=== PATIENT | male | born 1935 | race Caucasian/White ===

== ENCOUNTER 2016-08-09 12:43 | Inpatient (IN) | payer OTHER, MEDICARE ==
[~2016-08-09] VITALS: Ht 182.9 cm; Wt 70.5 kg
[~2016-08-09 12:43] MED LIST: AMIO200T4 PO; CLR10 PO; METO25TA3 PO; TPRSR/25 PO; WARF-280 PO
--- NOTE | 2016-08-09 14:16 | EMERGENCY ROOM VISIT NOTE ---
History Report prepared by Joby: Rk Delarosa Under the Supervision of: Dr. Lance Murillo D.O. First contact with patient: 13:54 Chief Complaint: LETHARGIC Stated Complaint: altered Nursing Triage Summary: Dementia. Pt. arrived via ALS ambulance. Home health services had their first visit at [facility] today. Upon arrival (per EMS) home health found pt. sleeping on the floor in the hallway. Pt. also has dementia. Difficult to obtain a history or assessment of pt. Pt. is sleeping comfortably and does not appear to be in any pain. History of Present Illness The patient is an 80 year old male who presents to the Emergency Room via emergency medical services due to worsening confusion and weakness that began two days prior to arrival. The patient has a home care nurse who visits the patient's home for one hour every Saturday and . When she arrived to the home today at 0900 she found the patient sitting on the floor against a wall. The patient's , who also suffers from dementia, notes that she got the patient out of bed and ready for the day this morning but he was very fatigued. The home care nurse got the patient off of the floor and got him breakfast. The patient was falling asleep while sitting at the table. The patient and his live alone, and are called their son every day to remind them to take their medications. The home nurse has no way of knowing what medications the patient takes or when he is supposed to take them. The nurse does think that some changes need to be made to the home to make it safe for the patient and his . Their son Reny is their power of surveillance inspector. 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 A total of 10 systems reviewed and were otherwise negative. Past Medical & Surgical Medical Problems: (1) ACQRD ABSENCE OF KIDNEY (2) Asthma (3) CATARACT NOS (4) Dementia (5) Dementia (6) HX-PROSTATIC MALIGNANCY (7) Hypertension (8) kidney cancer (9) UMBILICAL HERNIA (10) unilateral nephrectomy Surgical Problems: (1) History of cholecystectomy (2) History of nephrectomy Family History FH: cancer FHx: cancer Kidney disease or stones Social History Smoking Status: Unknown if Ever Smoked Alcohol Use: occasionally Drug Use: none Marital Status: Housing Status: lives with significant other Occupation Status: retired Current/Historical Medications Scheduled Amiodarone Hcl (Cordarone), 200 MG PO QPM Metoprolol Succinate (Metoprolol Succinate ER), 25 MG PO DAILY Olanzapine (Olanzapine), 5 MG PO QPM Allergies Coded Allergies: Shellfish (Verified Allergy, Intermediate, GI DISTRESS, RASH, 08/09/16) Physical Exam Vital Signs Date Time Temp Pulse Resp B/P Pulse Ox O2 Delivery O2 Flow Rate FiO2 08/09/16 18:48 58 18 145/75 95 Room Air 08/09/16 17:18 57 18 118/65 96 Room Air 08/09/16 16:28 52 18 129/71 95 Room Air 08/09/16 16:28 96 Room Air 08/09/16 15:38 59 08/09/16 13:56 57 08/09/16 13:04 97 Room Air 08/09/16 12:47 36.1 64 16 149/69 97 Room Air Physical Exam GENERAL: Patient is sleeping in bed. Easily aroused with verbal stimuli. HEENT: No acute trauma, normocephalic atraumatic, mucous membranes moist, no nasal congestion, no scleral icterus. NECK: No stridor, no adenopathy, no meningismus, trachea is midline. LUNGS: No dyspnea. Clear to auscultation and equal bilaterally. No wheeze, no rhonchi. HEART: Regular rate and rhythm. No murmurs, rubs, gallops appreciated. ABDOMEN: Soft, nontender, bowel sounds positive, no masses appreciated, no peritonitis. BACK: No midline tenderness, no CVA tenderness EXTREMITIES: Moves all extremities, no cyanosis, no edema. NEUROLOGIC: No pronator drift. Unable to follow complex (2-step) commands due to dementia, Per family this is at baseline. SKIN: No rash, no jaundice, no diaphoresis. Medical Decision & Procedures ER Provider Diagnostic Interpretation: Radiology results as stated below per my review and radiologist interpretation: CHEST ONE VIEW PORTABLE CLINICAL HISTORY: weakness dyspnea COMPARISON STUDY: 05/20/2016 FINDINGS: The bones soft tissues and hemidiaphragms are normal. The cardiomediastinal silhouette is normal. The lungs are clear. The pulmonary vasculature is normal. IMPRESSION: Negative chest. Electronically signed by: Arnaud Rosa M.D. 08/09/2016 2:49 PM Dictated Date/Time: 08/09/2016 2:49 PM Laboratory Results 08/09/16 13:00 Red Blood Count 4.08, Mean Corpuscular Volume 90.7, Mean Corpuscular Hemoglobin 30.6, Mean Corpuscular Hemoglobin Concent 33.8, Mean Platelet Volume 9.5, Neutrophils (%) (Auto) 59.4, Lymphocytes (%) (Auto) 26.8, Monocytes (%) (Auto) 10.1, Eosinophils (%) (Auto) 2.8, Basophils (%) (Auto) 0.7, Neutrophils # (Auto ) 3.57, Lymphocytes # (Auto) 1.61, Monocytes # (Auto) 0.61, Eosinophils # (Auto ) 0.17, Basophils # (Auto) 0.04 08/09/16 13:00 Test 08/09/16 13:00 08/09/16 14:20 08/09/16 14:28 08/09/16 16:30 White Blood Count 6.01 K/uL (4.8-10.8) Red Blood Count 4.08 M/uL (4.7-6.1) Hemoglobin 12.5 g/dL (14.0-18.0) Hematocrit 37.0 % (42-52) Mean Corpuscular Volume 90.7 fL (80-100) Mean Corpuscular Hemoglobin 30.6 pg (25-34) Mean Corpuscular Hemoglobin Concent 33.8 g/dl (32-36) Platelet Count 234 K/uL (130-400) Mean Platelet Volume 9.5 fL (7.4-10.4) Neutrophils (%) (Auto) 59.4 % Lymphocytes (%) (Auto) 26.8 % Monocytes (%) (Auto) 10.1 % Eosinophils (%) (Auto) 2.8 % Basophils (%) (Auto) 0.7 % Neutrophils # (Auto) 3.57 K/uL (1.4-6.5) Lymphocytes # (Auto) 1.61 K/uL (1.2-3.4) Monocytes # (Auto) 0.61 K/uL (0.11-0.59) Eosinophils # (Auto) 0.17 K/uL (0-0.5) Basophils # (Auto) 0.04 K/uL (0-0.2) RDW Standard Deviation 45.0 fL (36.4-46.3) RDW Coefficient of Variation 13.6 % (11.5-14.5) Immature Granulocyte % (Auto) 0.2 % Immature Granulocyte # (Auto) 0.01 K/uL (0.00-0.02) Anion Gap 8.0 mmol/L (3-11) Est Creatinine Clear Calc Drug Dose 45.1 ml/min Estimated GFR () 54.6 Estimated GFR (Non- 47.1 BUN/Creatinine Ratio 15.1 (10-20) Calcium Level 8.8 mg/dl (8.5-10.1) Total Bilirubin 0.5 mg/dl (0.2-1) Direct Bilirubin 0.2 mg/dl (0-0.2) Aspartate Amino Transf (AST/SGOT) 20 U/L (15-37) Alanine Aminotransferase (ALT/SGPT) 20 U/L (12-78) Alkaline Phosphatase 57 U/L (45-117) Total Protein 6.9 gm/dl (6.4-8.2) Albumin 3.3 gm/dl (3.4-5.0) Procalcitonin < 0.05 ng/mL (0-0.5) Thyroid Stimulating Hormone (TSH) 3.820 uIu/ml (0.300-4.500) Bedside Glucose 79 mg/dl (70-99) Venous Blood pH 7.40 (7.36-7.41) Venous Blood Partial Pressure CO2 51 mmHg (38.0-50.0) Venous Blood Partial Pressure O2 32 mmHg Venous Blood HCO3 31 mmol/L Venous Blood Oxygen Saturation < 60.0 % Venous Blood Base Excess 5.1 mmol/L Influenza Type A (RT-PCR) Neg for Influ A (NEG) Influenza Type B (RT-PCR) Neg for Influ B (NEG) Test 08/09/16 18:50 Urine Color DK YELLOW Urine Appearance CLEAR (CLEAR) Urine pH 6.0 (4.5-7.5) Urine Specific [place] 1.019 (1.000-1.030) Urine Protein NEG (NEG) Urine Glucose (UA) NEG (NEG) Urine Ketones TRACE (NEG) Urine Occult Blood NEG (NEG) Urine Nitrite NEG (NEG) Urine Bilirubin NEG (NEG) Urine Urobilinogen NEG (NEG) Urine Leukocyte Esterase NEG (NEG) Urine WBC (Auto) 0 /hpf (0-5) Urine RBC (Auto) 0-4 /hpf (0-4) Urine Hyaline Casts (Auto) 0 /lpf (0-5) Urine Epithelial Cells (Auto) 0-5 /lpf (0-5) Urine Bacteria (Auto) NEG (NEG) Laboratory results as reviewed by me. ECG Indication: weakness Rate (beats per minute): 64 Rhythm: normal sinus Findings: prolonged QT Comparison ECG Date: 05/08/2017 Change: no significant change ED Course 1357: The patient was evaluated in room C9. A complete history and physical exam was performed. 1618: I checked on the patient at this time, he was resting in bed. 1820: Bedside ultrasound revealed 12 x 12 x 8 bladder volume. Which revealed an intra bladder mass. 1923: I discussed the case with Dr. Garnett - [facility] [place] he will evaluate the patient for further treatment. Medical Decision Differential diagnosis: Etiologies such as metabolic, infection, hypo/hyperglycemia, electrolyte abnormalities, cardiac sources, intracerebral event, toxicologic, neurologic, as well as others were entertained. Patient is an 80-year-old male with significant past medical history for end- stage dementia who has living at home with his who also is afflicted with dementia. He was brought in today at the insistence of the home health nurses this was her first visit, the patient insisted on sleeping in the hallway, the home health nurse was concerned for their safety. There is also report that he was a little more difficult to arouse initially. Upon further questioning with family and caregivers this can be normal for him. Today a general medical examination did not reveal any acute infectious etiology, no evidence of acute stroke. I discussed the case with the patient's primary care provider Dr. Hunter, he has worked extensively with regards to placement of both the patient and his . The home health nurse also reports that the patient is frequently leaving the home and wandering. The family is attempting to secure 24-hour home health nursing assistance, this will take 24-48 hours to secure 24- hour assistance, in the meantime is felt that he is not safe to be at home without 24-hour assistance. He is being evaluated by the hospitalist for admission while 24-hour care and possible placement is secured. Consults Time Called: 1914 Consulting Physician: Dr. Tamir HOYT Hospitalist Returned Call: 1923 I discussed the case with Dr. Tamir HOYT he will evaluate the patient for further treatment. Impression Primary Impression: Mild anemia Additional Impression: Dementia Scribe Attestation The scribe's documentation has been prepared under my direction and personally reviewed by me in its entirety. I confirm that the note above accurately reflects all work, treatment, procedures, and medical decision making performed by me. Departure Information Dispostion Being Evaluated By Hospitalist Referrals Vinayak Turner M.D. (PCP) Patient Instructions My [facility] Problem Qualifiers
[2016-08-09 14:31] LABS: BUN/CREATININE RATIO 15.1 (10-20); CALCIUM 8.8 mg/dl (8.5-10.1); CREATININE 1.4 mg/dl (0.60-1.40)
[2016-08-09] MEDS ORDERED: ZYP5 PO (14:34)
[2016-08-09] MEDS ORDERED: SYMIN INH (14:34)
[2016-08-09] MEDS ORDERED: CLR10 PO (14:35)
[2016-08-09 14:44] LABS: THYROID STIMULATING HORMONE 3.82 uIu/ml (0.300-4.500)
[2016-08-09 14:48] LABS: VEN BLOOD GAS BASE EXCESS 5.1 mmol/L; VENOUS BLOOD GAS PCO2 51 mmHg (38.0-50.0); VENOUS BLOOD GAS PO2 32 mmHg
--- NOTE | 2016-08-09 14:50 | DIAGNOSTIC IMAGING REPORT ---
CHEST ONE VIEW PORTABLE CLINICAL HISTORY: weakness dyspnea COMPARISON STUDY: 05/20/2016 FINDINGS: The bones soft tissues and hemidiaphragms are normal. The cardiomediastinal silhouette is normal. The lungs are clear. The pulmonary vasculature is normal. IMPRESSION: Negative chest. Electronically signed by: Arnaud Rosa M.D. 08/09/2016 2:49 PM Dictated Date/Time: 08/09/2016 2:49 PM
[2016-08-09 15:26] LABS: VEN BLD GAS O2 SATURATION < 60.0 %
[2016-08-09 15:36] LABS: BASO % 0.7 %; BASO ABS # 0.04 K/uL (0-0.2); COMPLETE YES; EOS % 2.8 %; IG% 0.2 %; LYMPH % 26.8 %; LYMPH ABS # 1.61 K/uL (1.2-3.4); MEAN CELL VOLUME 90.7 fL (80-100); MEAN CORPUSCULAR HEMOGLOBIN 30.6 pg (25-34); MEAN CORPUSCULAR HGB CONC 33.8 g/dl (32-36); MEAN PLATELET VOLUME 9.5 fL (7.4-10.4); MONO % 10.1 %; NEUT % 59.4 %; PLATELET COUNT 234 K/uL (130-400); RED BLOOD COUNT 4.08 M/uL (4.7-6.1); WHITE BLOOD COUNT 6.01 K/uL (4.8-10.8)
[2016-08-09 18:21] LABS: INFLUENZA A PCR Neg for Influ A (NEG); INFLUENZA B PCR Neg for Influ B (NEG)
[2016-08-09 19:26] LABS: URINE APPEARANCE CLEAR (CLEAR); URINE BILIRUBIN NEG (NEG); URINE COLOR DK YELLOW; URINE EPITHELIAL CELL AUTO 0-5 /lpf (0-5); URINE NITRITE NEG (NEG); URINE SPECIFIC GRAVITY 1.019 (1.000-1.030); UROBILINOGEN NEG (NEG); ZZURINE CULT IF INDIC CATH NO
[2016-08-09 19:36] LABS: MANUAL MICROSCOPIC REQUIRED? NO; REVIEW REQ? NO
[2016-08-09] MEDS ORDERED: NITROGLYCERIN 0.4 MG SL PER TAB CHARGE SL PRN (19:45)
[2016-08-09] MEDS ORDERED: ONDANSETRON INJ 2 MG/ML 2 ML VIAL IV PRN (19:45)
--- NOTE | 2016-08-09 20:50 | DIAGNOSTIC IMAGING REPORT ---
CT HEAD WITHOUT CONTRAST (CT) CLINICAL HISTORY: Acute change in mental status. Loss of consciousness. Weakness. COMPARISON STUDY: 05/20/2016 TECHNIQUE: Axial CT of the brain is performed from the vertex to the skull base. IV contrast was not administered for this examination. CT DOSE: 712.55 mGy.cm FINDINGS: No intra or extra-axial mass lesions are visualized. There is no CT evidence of acute cortical infarction. There is no evidence of midline shift. There is no acute hemorrhage. No calvarial fractures are visualized. There are patchy white matter hypodensities likely on a small vessel basis. There is no evidence of pathologic ventricular dilatation. There is no evidence of acute sinusitis IMPRESSION: No acute intracranial findings Electronically signed by: Doug Kwok M.D. 08/09/2016 8:48 PM Dictated Date/Time: 08/09/2016 8:47 PM
[2016-08-09 20:55] VITALS: BP 164/79; PULSE 56; TEMP 36.9; O2SAT 95; Ht 182.9 cm; Wt 70.5 kg
--- NOTE | 2016-08-09 20:59 | History and Physical ---
History & Physical Date & Time of Service: Aug 09, 2016 at 20:50 Chief Complaint: altered Primary Care Physician: Vinayak Turner M.D. History of Present Illness Source: family The patient is an 80-year-old male with a known history dementia who was noted by his son to have worsening status with past 48 hours. He was found earlier in the day sitting against the wall. He does have a visiting nurse to comes in for a few hours during the week. It is unknown to patient is been taking his medications as directed. The family is in need of 24 hour care for both the patient and his will also has dementia. His been no overt signs of infection or of trauma. The patient himself is not able to contribute his history of present illness due to altered mental status, and his son provides most information. Past Medical/Surgical History Medical Problems: (1) ACQRD ABSENCE OF KIDNEY Status: Resolved (2) Asthma Status: Chronic (3) CATARACT NOS Status: Resolved (4) Dementia Status: Chronic (5) Dementia Status: Chronic (6) HX-PROSTATIC MALIGNANCY Status: Chronic (7) Hypertension Status: Chronic (8) kidney cancer Status: Resolved (9) UMBILICAL HERNIA Status: Resolved (10) unilateral nephrectomy Status: Resolved Surgical Problems: (1) History of cholecystectomy Status: Resolved (2) History of nephrectomy Status: Resolved Family History FH: cancer FHx: cancer Kidney disease or stones Social History Smoking Status: Unknown if Ever Smoked Smokeless Tobacco Use: No Alcohol Use: none Drug Use: none Marital Status: Housing status: lives with family Occupational Status: retired Immunizations History of Influenza Vaccine: Unknown History of Tetanus Vaccine?: Unknown History of Pneumococcal: Unknown History of Hepatitis B Vaccine: Unknown Multi-Drug Resistant Organisms History of MDRO: Yes Type of MDRO: MRSA Allergies Coded Allergies: Shellfish (Verified Allergy, Intermediate, GI DISTRESS, RASH, 08/09/16) Home Medications Scheduled Amiodarone Hcl (Cordarone), 200 MG PO QPM Metoprolol Succinate (Metoprolol Succinate ER), 25 MG PO DAILY Olanzapine (Olanzapine), 5 MG PO QPM Review of Systems The patient is not able to contribute his review of systems due to altered mental status, and his son is able to provide most of the information. Physical Exam Vital Signs Date Time Temp Pulse Resp B/P Pulse Ox O2 Delivery O2 Flow Rate FiO2 08/09/16 20:24 36.8 54 16 129/73 95 Room Air 08/09/16 18:48 58 18 145/75 95 Room Air 08/09/16 17:18 57 18 118/65 96 Room Air 08/09/16 16:28 52 18 129/71 95 Room Air 08/09/16 16:28 96 Room Air 08/09/16 15:38 59 08/09/16 13:56 57 08/09/16 13:04 97 Room Air 08/09/16 12:47 36.1 64 16 149/69 97 Room Air The patient is resting, nonresponsive, lying in bed and in no acute distress. HEENT--PERRL, EOMI, mucous membranes and oropharynx dry. Neck--supple, no JVD or bruits, thyroid normal, trachea midline, no adenopathy. Heart--normal S1 and S2, no extra beats, no murmurs, rubs or gallops. Lungs--clear bilaterally, no respiratory distress, no accessory muscle use. Abdomen--normal bowel sounds and soft, nontender and nondistended, no hernias or masses, no organomegaly. Extremities--no cyanosis, clubbing or edema. There are good distal pulses b/l. Dermatologic--normal skin turgor, normal color, warm and dry, no abnormal lymph nodes, no rash. Neurologic--cranial nerves II through XII grossly intact. Rheumatologic--normal range of motion, nontender, muscles and joints. Psychiatric--normal affect. Diagnostics Laboratory Results Results Past 24 Hours Test 08/09/16 13:00 08/09/16 14:20 08/09/16 14:28 08/09/16 16:30 Range/Units White Blood Count 6.01 4.8-10.8 K/uL Red Blood Count 4.08 4.7-6.1 M/uL Hemoglobin 12.5 14.0-18.0 g/dL Hematocrit 37.0 42-52 % Mean Corpuscular Volume 90.7 80-100 fL Mean Corpuscular Hemoglobin 30.6 25-34 pg Mean Corpuscular Hemoglobin Concent 33.8 32-36 g/dl Platelet Count 234 130-400 K/uL Mean Platelet Volume 9.5 7.4-10.4 fL Neutrophils (%) (Auto) 59.4 % Lymphocytes (%) (Auto) 26.8 % Monocytes (%) (Auto) 10.1 % Eosinophils (%) (Auto) 2.8 % Basophils (%) (Auto) 0.7 % Neutrophils # (Auto) 3.57 1.4-6.5 K/uL Lymphocytes # (Auto) 1.61 1.2-3.4 K/uL Monocytes # (Auto) 0.61 0.11-0.59 K/uL Eosinophils # (Auto) 0.17 0-0.5 K/uL Basophils # (Auto) 0.04 0-0.2 K/uL RDW Standard Deviation 45.0 36.4-46.3 fL RDW Coefficient of Variation 13.6 11.5-14.5 % Immature Granulocyte % (Auto) 0.2 % Immature Granulocyte # (Auto) 0.01 0.00-0.02 K/uL Sodium Level 142 136-145 mmol/L Potassium Level 4.0 3.5-5.1 mmol/L Chloride Level 107 98-107 mmol/L Carbon Dioxide Level 27 21-32 mmol/L Anion Gap 8.0 3-11 mmol/L Blood Urea Nitrogen 21 7-18 mg/dl Creatinine 1.40 0.60-1.40 mg/dl Est Creatinine Clear Calc Drug Dose 45.1 ml/min Estimated GFR () 54.6 Estimated GFR (Non- 47.1 BUN/Creatinine Ratio 15.1 10-20 Random Glucose 115 70-99 mg/dl Calcium Level 8.8 8.5-10.1 mg/dl Total Bilirubin 0.5 0.2-1 mg/dl Direct Bilirubin 0.2 0-0.2 mg/dl Aspartate Amino Transf (AST/SGOT) 20 15-37 U/L Alanine Aminotransferase (ALT/SGPT) 20 12-78 U/L Alkaline Phosphatase 57 45-117 U/L Total Protein 6.9 6.4-8.2 gm/dl Albumin 3.3 3.4-5.0 gm/dl Procalcitonin < 0.05 0-0.5 ng/mL Thyroid Stimulating Hormone (TSH) 3.820 0.300-4.500 uIu/ml Bedside Glucose 79 70-99 mg/dl Venous Blood pH 7.40 7.36-7.41 Venous Blood Partial Pressure CO2 51 38.0-50.0 mmHg Venous Blood Partial Pressure O2 32 mmHg Venous Blood HCO3 31 mmol/L Venous Blood Oxygen Saturation < 60.0 % Venous Blood Base Excess 5.1 mmol/L Influenza Type A (RT-PCR) Neg for Influ A NEG Influenza Type B (RT-PCR) Neg for Influ B NEG Test 08/09/16 18:50 Range/Units Urine Color DK YELLOW Urine Appearance CLEAR CLEAR Urine pH 6.0 4.5-7.5 Urine Specific [place] 1.019 1.000-1.030 Urine Protein NEG NEG Urine Glucose (UA) NEG NEG Urine Ketones TRACE NEG Urine Occult Blood NEG NEG Urine Nitrite NEG NEG Urine Bilirubin NEG NEG Urine Urobilinogen NEG NEG Urine Leukocyte Esterase NEG NEG Urine WBC (Auto) 0 0-5 /hpf Urine RBC (Auto) 0-4 0-4 /hpf Urine Hyaline Casts (Auto) 0 0-5 /lpf Urine Epithelial Cells (Auto) 0-5 0-5 /lpf Urine Bacteria (Auto) NEG NEG Diagnostic Radiology Patient Name: KARLEE AVERY Unit Number: [id number] Dictated: [id number] Transcribed: 08/09/16 144 MS Printed Date/Time: [~ rep prt dt]/[~ rep prt tm] [~ rep ct labl] - [~ rep ct ivnm] [facility] [place] [address] Dictated: [id number]/[id number] Transcribed: 08/09/16 144 MS Printed Date/Time: [~ rep prt dt]/[~ rep prt tm] [~ rep ct labl] - [~ rep ct ivnm] CHEST ONE VIEW PORTABLE CLINICAL HISTORY: weakness dyspnea COMPARISON STUDY: 05/20/2016 FINDINGS: The bones soft tissues and hemidiaphragms are normal. The cardiomediastinal silhouette is normal. The lungs are clear. The pulmonary vasculature is normal. IMPRESSION: Negative chest. Electronically signed by: Arnaud Rosa M.D. 08/09/2016 2:49 PM Dictated Date/Time: 08/09/2016 2:49 PM The status of this report is Signed. Draft = Not yet reviewed or approved by Radiologist. Signed = Reviewed and approved by Radiologist. <AttendingPhy></AttendingPhy> <FamilyPhy>Vinayak Turner M.D.</FamilyPhy> < PrimaryPhy>iVnayak Turner M.D.</PrimaryPhy> <UnitNumber>[id number]</UnitNumber > <VisitNumber>[id number]</VisitNumber> <PatientName>KARLEE AVERY</ PatientName> <DateOfBirth>1935</DateOfBirth> <Location>[facility]</Location> < ServiceDate>08/09/16</ServiceDate> <MNE>ESINDI</MNE> <OrderingPhy>Lance Murillo D.O.</OrderingPhy> <OrderingPhyMNE>f rep ord dr garcia</OrderingPhyMNE> < DictatingPhyMNE>f rep dict dr garcia</DictatingPhyMNE> <CCListMNE>f rep ct jose</ CCListMNE> <AdmittingPhyMNE>f pt admit dr garcia</AdmittingPhyMNE> <AttendingPhyMNE >f pt attend dr garcia</AttendingPhyMNE> <ConsultingPhyMNE>f pt consult dr garcia</ConsultingPhyMNE> <FamilyPhyMNE>f pt fam dr garcia</FamilyPhyMNE> <OtherPhyMNE>f pt other dr garcia</OtherPhyMNE> < PrimaryPhyMNE>f pt prim care dr garcia</PrimaryPhyMNE> <ReferringPhyMNE>f pt referring dr garcia</ReferringPhyMNE> EKG EKG shows normal sinus rhythm at 64 bpm, mildly prolonged QT, no acute ST-T changes. Impression Assessment and Plan Altered mental status, baseline dementia--patient had a negative metabolic workup at this time in the emergency department. I've asked emergency department staff to order CT of the head without contrast to rule out diagnoses such as subdural hematoma, if this test is negative, we'll we will pursue an MRI the brain combo. The patient be admitted to the telemetry unit for cardiac rhythm monitoring. We'll continue amiodarone 200 mg by mouth daily. In hold metoprolol succinate ER 25 mg by mouth at this time. Dementia/agitation/insomnia--hold Zyprexa 5 mg by mouth daily. health services director will be consulted as the son will be trying to arrange for 24- hour care for his father the patient, and his mother who is also having baseline dementia issues. Level of Care Telemetry Advanced Directives Existing Advance Directive: No Existing Living Will: No Existing Power of Optometrist/Practice Owner: No Resuscitation Status FULL RESUSCITATION VTE Prophylaxis VTE Risk Assessment Done? Y/N: Yes Risk Level: High Given or contraindicated: SCD's Social Service Consult Receiving Home Health
[2016-08-09] MEDS: AMIODARONE 200 MG TAB PO SCH (21:30)
[2016-08-09] MEDS: NSS + 20MEQ KCL 1000ML 1,000 ML IV SCH (22:25)
[2016-08-10 03:48] VITALS: BP 137/67; PULSE 54; TEMP 36.6; O2SAT 93
[2016-08-10 06:17] LABS: BASO % 0.4 %; BASO ABS # 0.03 K/uL (0-0.2); COMPLETE YES; EOS % 5.1 %; HEMATOCRIT 38.7 % (42-52); IG% 0.1 %; LYMPH % 26.6 %; LYMPH ABS # 1.78 K/uL (1.2-3.4); MEAN CELL VOLUME 91.9 fL (80-100); MEAN CORPUSCULAR HEMOGLOBIN 30.9 pg (25-34); MEAN CORPUSCULAR HGB CONC 33.6 g/dl (32-36); MEAN PLATELET VOLUME 9.2 fL (7.4-10.4); MONO % 10.5 %; NEUT % 57.3 %; PLATELET COUNT 194 K/uL (130-400); RED BLOOD COUNT 4.21 M/uL (4.7-6.1); WHITE BLOOD COUNT 6.69 K/uL (4.8-10.8)
[2016-08-10 06:47] LABS: BUN/CREATININE RATIO 16.3 (10-20); CALCIUM 8.3 mg/dl (8.5-10.1); CREATININE 0.97 mg/dl (0.60-1.40); MAGNESIUM 1.9 mg/dl (1.8-2.4); POTASSIUM 4.2 mmol/L (3.5-5.1)
[2016-08-10] MEDS: NSS + 20MEQ KCL 1000ML 1,000 ML IV SCH (07:40)
[2016-08-10] MEDS ORDERED: PNEUMOCOCCAL ADMINISTRATION CHARGE ONE (08:00)
[2016-08-10] MEDS ORDERED: PNEUMOCOCCAL POLYSACCHARIDES 25 MCG/0.5 ML VIAL/SYR IM. ONE (08:00)
[2016-08-10 08:30] VITALS: BP 160/69; PULSE 61; TEMP 36.6; O2SAT 97
--- NOTE | 2016-08-10 09:41 | Hospitalist Progress Note ---
Hospitalist Progress Note Date of Service Aug 10, 2016. (Alyce Brower ., BRANDON) Subjective Pt evaluation today including: conversation w/ patient, physical exam, chart review, lab review, review of studies, review of inpatient medication list Voiding: webster catheter in place Unable to obtain ROS due to mental status. Patient was able to tell me his first name, but otherwise could not answer any of my questions or follow commands. No events on tele overnight. Per nursing, the patient is becoming more alert. He was able to tell the RN his name and that he did not know where he was. Additional Comments: Unable to obtain ROS from patient due to mental status. (Alyce Brower ., BRIANC) Objective Vital Signs Date Time Temp Pulse Resp B/P Pulse Ox O2 Delivery O2 Flow Rate FiO2 08/10/16 08:30 36.6 61 20 160/69 97 Room Air 08/10/16 04:00 Room Air 08/10/16 03:48 36.6 54 17 137/67 93 Room Air 08/09/16 23:59 Room Air 08/09/16 20:55 36.9 56 18 164/79 95 Room Air 08/09/16 20:24 36.8 54 16 129/73 95 Room Air 08/09/16 18:48 58 18 145/75 95 Room Air 08/09/16 17:18 57 18 118/65 96 Room Air 08/09/16 16:28 52 18 129/71 95 Room Air 08/09/16 16:28 96 Room Air 08/09/16 15:38 59 08/09/16 13:56 57 08/09/16 13:04 97 Room Air 08/09/16 12:47 36.1 64 16 149/69 97 Room Air (Alyce Brower ., BIJAL-C) Physical Exam General Appearance: WD/WN, no apparent distress Eyes: normal inspection, PERRL, sclerae normal ENT: normal ENT inspection, hearing grossly normal, pharynx normal, + pertinent finding (dry oral mucosa) Neck: supple, no JVD, trachea midline Respiratory/Chest: lungs clear, normal breath sounds, no respiratory distress Cardiovascular: no gallop, no murmur, + bradycardia (regular rhythm) Abdomen: normal bowel sounds, non tender, soft Extremities: non-tender, normal inspection, no pedal edema Neurologic/Psychiatric: alert, + disoriented, + pertinent finding (unable to assess mood or orientation. pt could not answer any questions, mumbling unintelligbly) Skin: normal color, warm/dry, no rash (Alyce Brwoer, BRANDON) Laboratory Results Last 24 Hours Test 08/09/16 13:00 08/09/16 14:20 08/09/16 14:28 08/09/16 16:30 White Blood Count 6.01 K/uL Red Blood Count 4.08 M/uL Hemoglobin 12.5 g/dL Hematocrit 37.0 % Mean Corpuscular Volume 90.7 fL Mean Corpuscular Hemoglobin 30.6 pg Mean Corpuscular Hemoglobin Concent 33.8 g/dl Platelet Count 234 K/uL Mean Platelet Volume 9.5 fL Neutrophils (%) (Auto) 59.4 % Lymphocytes (%) (Auto) 26.8 % Monocytes (%) (Auto) 10.1 % Eosinophils (%) (Auto) 2.8 % Basophils (%) (Auto) 0.7 % Neutrophils # (Auto) 3.57 K/uL Lymphocytes # (Auto) 1.61 K/uL Monocytes # (Auto) 0.61 K/uL Eosinophils # (Auto) 0.17 K/uL Basophils # (Auto) 0.04 K/uL RDW Standard Deviation 45.0 fL RDW Coefficient of Variation 13.6 % Immature Granulocyte % (Auto) 0.2 % Immature Granulocyte # (Auto) 0.01 K/uL Sodium Level 142 mmol/L Potassium Level 4.0 mmol/L Chloride Level 107 mmol/L Carbon Dioxide Level 27 mmol/L Anion Gap 8.0 mmol/L Blood Urea Nitrogen 21 mg/dl Creatinine 1.40 mg/dl Est Creatinine Clear Calc Drug Dose 45.1 ml/min Estimated GFR () 54.6 Estimated GFR (Non- 47.1 BUN/Creatinine Ratio 15.1 Random Glucose 115 mg/dl Calcium Level 8.8 mg/dl Total Bilirubin 0.5 mg/dl Direct Bilirubin 0.2 mg/dl Aspartate Amino Transf (AST/SGOT) 20 U/L Alanine Aminotransferase (ALT/SGPT) 20 U/L Alkaline Phosphatase 57 U/L Total Protein 6.9 gm/dl Albumin 3.3 gm/dl Procalcitonin < 0.05 ng/mL Thyroid Stimulating Hormone (TSH) 3.820 uIu/ml Bedside Glucose 79 mg/dl Venous Blood pH 7.40 Venous Blood Partial Pressure CO2 51 mmHg Venous Blood Partial Pressure O2 32 mmHg Venous Blood HCO3 31 mmol/L Venous Blood Oxygen Saturation < 60.0 % Venous Blood Base Excess 5.1 mmol/L Influenza Type A (RT-PCR) Neg for Influ A Influenza Type B (RT-PCR) Neg for Influ B Test 08/09/16 18:50 08/10/16 06:00 Urine Color DK YELLOW Urine Appearance CLEAR Urine pH 6.0 Urine Specific [place] 1.019 Urine Protein NEG Urine Glucose (UA) NEG Urine Ketones TRACE Urine Occult Blood NEG Urine Nitrite NEG Urine Bilirubin NEG Urine Urobilinogen NEG Urine Leukocyte Esterase NEG Urine WBC (Auto) 0 /hpf Urine RBC (Auto) 0-4 /hpf Urine Hyaline Casts (Auto) 0 /lpf Urine Epithelial Cells (Auto) 0-5 /lpf Urine Bacteria (Auto) NEG White Blood Count 6.69 K/uL Red Blood Count 4.21 M/uL Hemoglobin 13.0 g/dL Hematocrit 38.7 % Mean Corpuscular Volume 91.9 fL Mean Corpuscular Hemoglobin 30.9 pg Mean Corpuscular Hemoglobin Concent 33.6 g/dl Platelet Count 194 K/uL Mean Platelet Volume 9.2 fL Neutrophils (%) (Auto) 57.3 % Lymphocytes (%) (Auto) 26.6 % Monocytes (%) (Auto) 10.5 % Eosinophils (%) (Auto) 5.1 % Basophils (%) (Auto) 0.4 % Neutrophils # (Auto) 3.83 K/uL Lymphocytes # (Auto) 1.78 K/uL Monocytes # (Auto) 0.70 K/uL Eosinophils # (Auto) 0.34 K/uL Basophils # (Auto) 0.03 K/uL RDW Standard Deviation 45.9 fL RDW Coefficient of Variation 13.7 % Immature Granulocyte % (Auto) 0.1 % Immature Granulocyte # (Auto) 0.01 K/uL Sodium Level 143 mmol/L Potassium Level 4.2 mmol/L Chloride Level 109 mmol/L Carbon Dioxide Level 23 mmol/L Anion Gap 11.0 mmol/L Blood Urea Nitrogen 16 mg/dl Creatinine 0.97 mg/dl Est Creatinine Clear Calc Drug Dose 62.7 ml/min Estimated GFR () 85.1 Estimated GFR (Non- 73.4 BUN/Creatinine Ratio 16.3 Random Glucose 72 mg/dl Calcium Level 8.3 mg/dl Magnesium Level 1.9 mg/dl (Alyce Brower, BRANDON) Diagnostic Results Reviewed EKG and agree with interpretation as follows: 64 bpm, NSR, prolonged QT (QTc 501) Reviewed the following studies and agree with interpretation as follows: Patient Name: KARLEE AVERY Unit Number: [id number] Dictated: 08/09/162046 Transcribed: 08/09/162046 ARG Printed Date/Time: [~ rep prt dt]/[~ rep prt tm] [~ rep ct labl] - [~ rep ct ivnm] [facility] [place]iology [place] [address] Dictated: 08/09/162046 Transcribed: 08/09/162046 ARG Printed Date/Time: [~ rep prt dt]/[~ rep prt tm] [~ rep ct labl] - [~ rep ct ivnm] Patient: KARLEE AVERY Address1: [address] [place] [address] Rec: [id number] Address2: Acct ID: [id number] [facility] Zip: [place] [address] Date: 1935 Sex: M Room/Bed: Ref Phy: Vinayak Turner M.D. SC: PEPITO Att Phy: Report #: [id number] Maria Phy: Vinayak Turner M.D. Test: HWO Admit Phy: Foam Rubber Curer: VIMAL Interpreting Phy: Doug Kwok M.D. Diagnosis: altered Ordering Phy: Lance Murillo D.O. Service Date: 08/09/16 Admit Date: 08/09/16 MNE: [id number] CONF: DICTATED BY: Doug Kwok M.D.]] CC: Vinayak Turner M.D. Shippert, Brian W., D.O. Endcc: [~ rep ct add3]] CT HEAD WITHOUT CONTRAST (CT) CLINICAL HISTORY: Acute change in mental status. Loss of consciousness. Weakness. COMPARISON STUDY: 05/20/2016 TECHNIQUE: Axial CT of the brain is performed from the vertex to the skull base. IV contrast was not administered for this examination. CT DOSE: 712.55 mGy.cm FINDINGS: No intra or extra-axial mass lesions are visualized. There is no CT evidence of acute cortical infarction. There is no evidence of midline shift. There is no acute hemorrhage. No calvarial fractures are visualized. There are patchy white matter hypodensities likely on a small vessel basis. There is no evidence of pathologic ventricular dilatation. There is no evidence of acute sinusitis IMPRESSION: No acute intracranial findings Electronically signed by: Doug Kwok M.D. 08/09/2016 8:48 PM Dictated Date/Time: 08/09/2016 8:47 PM The status of this report is Signed. Draft = Not yet reviewed or approved by Radiologist. Signed = Reviewed and approved by Radiologist. <AttendingPhy></AttendingPhy> <FamilyPhy>Vinayak Turner M.D.</FamilyPhy> < PrimaryPhy>Vinayak Turner M.D.</PrimaryPhy> <UnitNumber>[id number]</UnitNumber > <VisitNumber>[id number]</VisitNumber> <PatientName>KARLEE AVERY</ PatientName> <DateOfBirth>1935</DateOfBirth> <Location>[facility]</Location> < ServiceDate>08/09/16</ServiceDate> <MNE>ESINDI</MNE> <OrderingPhy>Lance Murillo D.O.</OrderingPhy> <OrderingPhyMNE>f rep ord dr garcia</OrderingPhyMNE> < DictatingPhyMNE>f rep dict dr garcia</DictatingPhyMNE> <CCListMNE>f rep ct jde</ CCListMNE> <AdmittingPhyMNE>f pt admit dr garcia</AdmittingPhyMNE> <AttendingPhyMNE >f pt attend dr garcia</AttendingPhyMNE> <ConsultingPhyMNE>f pt consult dr garcia</ConsultingPhyMNE> <FamilyPhyMNE>f pt fam dr garcia</FamilyPhyMNE> <OtherPhyMNE>f pt other dr garcia</OtherPhyMNE> < PrimaryPhyMNE>f pt prim care dr garcia</PrimaryPhyMNE> <ReferringPhyMNE>f pt referring dr garcia</ReferringPhyMNE> (Alyce Brower ., BRANDON) Assessment and Plan 80 y/o male with a history of dementia, paroxysmal a-fib, HTN, renal cell carcinoma s/p left nephrectomy, prostate cancer, and adenocarcinoma of the bladder who presented to the ED with worsening mental status and weakness. Patient has a home health nurse who comes in twice a week. The nurse found the patient sleeping on the floor upon arrival. The patient was noted to have worsening weakness and confusion compared to baseline. The patient lives alone with his who also has dementia. Their son would like to pursue 24-hour care for the patient's safety. Upon arrival to the ED, patient's labs were grossly normal. No obvious signs of infection. Chest x-ray showed no acute disease. Patient will be admitted for placement. Altered mental status--dementia at baseline -Admit to telemetry for cardiac monitoring. Patient has remained in sinus rhythm with no acute events overnight -Repeat EKG shows NSR. Prolonged QT likely secondary to amiodarone -Head CT did not show any acute disease or intracranial findings. -MRI of the brain pending Paroxysmal A. fib--currently in sinus rhythm -Continue amiodarone 200 mg PO qd HTN--stable -Hold metoprolol succinate 25 mg PO qd due to bradycardia Dementia/agitation/insomnia--pt has been lethargic -Hold olanzapine 5 mg PO qd for now Dispo -Patient lives alone with his who also has dementia. A home health nurse comes in twice a week for 1 hour. The son would like to have 24-hour care. -PT/OT evaluate and treat. director of community services will be consulted for discharge planning/placement. (Alyce Brower ., BRIANC) I agree with PA assessment and plan and agree with assessment and plan Hemodynamically stable Labs reviewed No sign of metabolic encephalopathy or infection Will need to stay at least 3 midnights PT/OT consulted Son having trouble taking care of patient at home (Robert Smith D.Irais)
--- NOTE | 2016-08-10 10:12 | DIAGNOSTIC IMAGING REPORT ---
MRI OF THE BRAIN WITHOUT AND WITH IV CONTRAST CLINICAL HISTORY: Confusion. Dementia. Weakness. Loss of consciousness. COMPARISON STUDY: Head CT dated 08/09/2016, MR the brain dated 04/20/2015 TECHNIQUE: MRI of the brain was performed from the vertex to the skull base utilizing various T1 and T2 weighted sequences. Following the IV administration of 7.5 mL of Gadavist contrast, additional enhanced images were obtained. FINDINGS: Sagittal T1, axial diffusion, proton density and T2 weighted axial, coronal FLAIR, and pre and post axial T1-weighted images were acquired. These were supplemented with post gadolinium coronal T1 weighted images. No intra or extra-axial mass lesions are visualized. Axial diffusion-weighted images reveal no evidence of acute or subacute infarction. There is no evidence of ventricular dilatation. Proton density T2-weighted and FLAIR images reveal moderate foci of increased T2 signal within the white matter, likely on a small vessel basis. The findings remain similar to the prior April 2015 study. There are no abnormal flow voids. There is no evidence of pathologic enhancement. IMPRESSION: No significant change from the preceding study. Moderate foci of increased T2 signal within the white matter likely on a small vessel basis. No evidence of intracranial mass. No evidence of acute or subacute infarction. Electronically signed by: Doug Kwok M.D. 08/10/2016 10:11 AM Dictated Date/Time: 08/10/2016 10:08 AM
[2016-08-10 11:34] VITALS: BP 130/65; PULSE 61; TEMP 36.8; O2SAT 97
[2016-08-10 14:11] VITALS: BP 130/65; PULSE 61; TEMP 36.8; O2SAT 97
[2016-08-10 14:40] VITALS: BP 158/76; PULSE 76; O2SAT 95
[2016-08-10 17:21] VITALS: BP 139/78; PULSE 73; TEMP 36.8; O2SAT 95
[2016-08-10] MEDS: AMIODARONE 200 MG TAB PO SCH (21:55)
[2016-08-11 00:05] VITALS: BP 147/88; PULSE 72; TEMP 37.1; O2SAT 97
[2016-08-11 07:28] VITALS: BP 170/76; PULSE 65; TEMP 37; O2SAT 94
[2016-08-11 08:00] LABS: BASO % 0.2 %; BASO ABS # 0.02 K/uL (0-0.2); COMPLETE YES; EOS % 4.7 %; HEMATOCRIT 39.3 % (42-52); IG% 0.2 %; LYMPH ABS # 1.43 K/uL (1.2-3.4); MEAN CELL VOLUME 88.3 fL (80-100); MEAN CORPUSCULAR HEMOGLOBIN 30.8 pg (25-34); MEAN CORPUSCULAR HGB CONC 34.9 g/dl (32-36); MEAN PLATELET VOLUME 9.5 fL (7.4-10.4); MONO % 10.4 %; NEUT % 67.5 %; PLATELET COUNT 237 K/uL (130-400); RED BLOOD COUNT 4.45 M/uL (4.7-6.1); WHITE BLOOD COUNT 8.43 K/uL (4.8-10.8)
[2016-08-11 08:25] LABS: BUN/CREATININE RATIO 13.6 (10-20); CALCIUM 8.4 mg/dl (8.5-10.1); CREATININE 0.97 mg/dl (0.60-1.40); MAGNESIUM 1.8 mg/dl (1.8-2.4); POTASSIUM 3.8 mmol/L (3.5-5.1)
--- NOTE | 2016-08-11 12:52 | Progress Note ---
Subjective Date of Service: Aug 11, 2016. Subjective Pt evaluation today including: conversation w/ patient, physical exam, chart review, lab review, review of studies, review of inpatient medication list Problem List Medical Problems: (1) Dementia Status: Chronic (2) Mild anemia Status: Acute Review of Systems Unable to obtain due to dementia Objective Vital Signs Date Time Temp Pulse Resp B/P Pulse Ox O2 Delivery O2 Flow Rate FiO2 08/11/16 08:00 Room Air 08/11/16 07:28 37.0 65 18 170/76 94 Room Air 08/11/16 00:05 37.1 72 16 147/88 97 Room Air 08/11/16 00:00 Room Air 08/10/16 17:21 36.8 73 18 139/78 95 Room Air 08/10/16 16:00 Room Air 08/10/16 14:40 76 95 08/10/16 14:11 36.8 61 20 97 Physical Exam General Appearance: WD/WN, no apparent distress Neck: supple, no adenopathy Respiratory/Chest: lungs clear, normal breath sounds Cardiovascular: no edema, no gallop Abdomen: non tender, soft Neurologic/Psychiatric: alert, normal mood/affect, + disoriented Laboratory Results Last 24 Hours Test 08/11/16 06:58 White Blood Count 8.43 K/uL Red Blood Count 4.45 M/uL Hemoglobin 13.7 g/dL Hematocrit 39.3 % Mean Corpuscular Volume 88.3 fL Mean Corpuscular Hemoglobin 30.8 pg Mean Corpuscular Hemoglobin Concent 34.9 g/dl Platelet Count 237 K/uL Mean Platelet Volume 9.5 fL Neutrophils (%) (Auto) 67.5 % Lymphocytes (%) (Auto) 17.0 % Monocytes (%) (Auto) 10.4 % Eosinophils (%) (Auto) 4.7 % Basophils (%) (Auto) 0.2 % Neutrophils # (Auto) 5.68 K/uL Lymphocytes # (Auto) 1.43 K/uL Monocytes # (Auto) 0.88 K/uL Eosinophils # (Auto) 0.40 K/uL Basophils # (Auto) 0.02 K/uL RDW Standard Deviation 42.4 fL RDW Coefficient of Variation 13.2 % Immature Granulocyte % (Auto) 0.2 % Immature Granulocyte # (Auto) 0.02 K/uL Sodium Level 140 mmol/L Potassium Level 3.8 mmol/L Chloride Level 106 mmol/L Carbon Dioxide Level 23 mmol/L Anion Gap 11.0 mmol/L Blood Urea Nitrogen 13 mg/dl Creatinine 0.97 mg/dl Est Creatinine Clear Calc Drug Dose 62.0 ml/min Estimated GFR () 85.1 Estimated GFR (Non- 73.4 BUN/Creatinine Ratio 13.6 Random Glucose 81 mg/dl Calcium Level 8.4 mg/dl Magnesium Level 1.8 mg/dl Assessment and Plan 80 y/o male with a history of dementia, paroxysmal a-fib, HTN, renal cell carcinoma s/p left nephrectomy, prostate cancer, and adenocarcinoma of the bladder who presented to the ED with worsening mental status and weakness. Patient has a home health nurse who comes in twice a week. The nurse found the patient sleeping on the floor upon arrival. The patient was noted to have worsening weakness and confusion compared to baseline. The patient lives alone with his who also has dementia. Their son would like to pursue 24-hour care for the patient's safety. Upon arrival to the ED, patient's labs were grossly normal. No obvious signs of infection. Chest x-ray showed no acute disease. Patient will be admitted for placement. Altered mental status--dementia at baseline -Admit to telemetry for cardiac monitoring. Patient has remained in sinus rhythm with no acute events overnight -Repeat EKG shows NSR. Prolonged QT likely secondary to amiodarone -Head CT did not show any acute disease or intracranial findings. -MRI of the brain neg for acute disease Paroxysmal A. fib--currently in sinus rhythm -Continue amiodarone 200 mg PO qd HTN--stable -Hold metoprolol succinate 25 mg PO qd due to bradycardia Dementia/agitation/insomnia--pt has been lethargic -Hold olanzapine 5 mg PO qd for now Dispo -Patient lives alone with his who also has dementia. A home health nurse comes in twice a week for 1 hour. The son would like to have 24-hour care. -PT/OT evaluate and treat. rehabilitation services director will be consulted for discharge planning/placement.
[2016-08-11 19:13] VITALS: BP 163/94; PULSE 88; TEMP 36.6; O2SAT 94
[2016-08-11] MEDS: AMIODARONE 200 MG TAB PO SCH (21:05)
[2016-08-11 23:07] VITALS: BP 150/82; PULSE 76; TEMP 36.4; O2SAT 95
[2016-08-12 06:45] LABS: BASO % 0.1 %; BASO ABS # 0.01 K/uL (0-0.2); COMPLETE YES; HEMATOCRIT 38.1 % (42-52); IG% 0.1 %; LYMPH % 18.7 %; LYMPH ABS # 1.31 K/uL (1.2-3.4); MEAN CELL VOLUME 88.2 fL (80-100); MEAN CORPUSCULAR HEMOGLOBIN 30.8 pg (25-34); MEAN CORPUSCULAR HGB CONC 34.9 g/dl (32-36); MEAN PLATELET VOLUME 9.3 fL (7.4-10.4); MONO % 12.9 %; NEUT % 63.2 %; PLATELET COUNT 210 K/uL (130-400); RED BLOOD COUNT 4.32 M/uL (4.7-6.1)
[2016-08-12 07:15] LABS: BUN/CREATININE RATIO 13.4 (10-20); CALCIUM 8.3 mg/dl (8.5-10.1); CREATININE 1.1 mg/dl (0.60-1.40); MAGNESIUM 1.7 mg/dl (1.8-2.4); POTASSIUM 3.7 mmol/L (3.5-5.1)
[2016-08-12 07:17] VITALS: BP 148/78; PULSE 97; TEMP 36.7; O2SAT 99
--- NOTE | 2016-08-12 11:15 | Progress Note ---
Subjective Date of Service: Aug 12, 2016. Subjective Pt evaluation today including: conversation w/ patient, physical exam, chart review, lab review, review of studies, review of inpatient medication list Pt seen and examined Only oriented to name Denies any distress, chest pain, shortness of breath, abd pain Problem List Medical Problems: (1) Dementia Status: Chronic (2) Mild anemia Status: Acute Review of Systems Constitutional: No chills, No fever Respiratory: No cough, No dyspnea on exertion, No shortness of breath, No sputum, No wheezing Cardiac: No chest pain, No orthopnea Abdomen: No constipation, No diarrhea, No nausea, No pain, No vomiting Musculoskeletal: No joint pain, No muscle pain Male : No dysuria, No urinary frequency Psychiatric: No anxiety, No depression symptoms Objective Vital Signs Date Time Temp Pulse Resp B/P Pulse Ox O2 Delivery O2 Flow Rate FiO2 08/12/16 07:17 36.7 97 20 148/78 99 Room Air 08/12/16 00:00 Room Air 08/11/16 23:07 36.4 76 16 150/82 95 Room Air 08/11/16 19:13 36.6 88 18 163/94 94 Nasal Cannula 08/11/16 16:00 Room Air Physical Exam General Appearance: WD/WN, no apparent distress Neck: supple, no adenopathy Respiratory/Chest: lungs clear, normal breath sounds Cardiovascular: no edema, no gallop Abdomen: non tender, soft Neurologic/Psychiatric: alert, + disoriented Laboratory Results Last 24 Hours Test 08/12/16 06:25 White Blood Count 7.00 K/uL Red Blood Count 4.32 M/uL Hemoglobin 13.3 g/dL Hematocrit 38.1 % Mean Corpuscular Volume 88.2 fL Mean Corpuscular Hemoglobin 30.8 pg Mean Corpuscular Hemoglobin Concent 34.9 g/dl Platelet Count 210 K/uL Mean Platelet Volume 9.3 fL Neutrophils (%) (Auto) 63.2 % Lymphocytes (%) (Auto) 18.7 % Monocytes (%) (Auto) 12.9 % Eosinophils (%) (Auto) 5.0 % Basophils (%) (Auto) 0.1 % Neutrophils # (Auto) 4.42 K/uL Lymphocytes # (Auto) 1.31 K/uL Monocytes # (Auto) 0.90 K/uL Eosinophils # (Auto) 0.35 K/uL Basophils # (Auto) 0.01 K/uL RDW Standard Deviation 43.2 fL RDW Coefficient of Variation 13.3 % Immature Granulocyte % (Auto) 0.1 % Immature Granulocyte # (Auto) 0.01 K/uL Sodium Level 142 mmol/L Potassium Level 3.7 mmol/L Chloride Level 107 mmol/L Carbon Dioxide Level 25 mmol/L Anion Gap 10.0 mmol/L Blood Urea Nitrogen 15 mg/dl Creatinine 1.10 mg/dl Est Creatinine Clear Calc Drug Dose 54.5 ml/min Estimated GFR () 73.1 Estimated GFR (Non- 63.1 BUN/Creatinine Ratio 13.4 Random Glucose 90 mg/dl Calcium Level 8.3 mg/dl Magnesium Level 1.7 mg/dl Assessment and Plan 80 y/o male with a history of dementia, paroxysmal a-fib, HTN, renal cell carcinoma s/p left nephrectomy, prostate cancer, and adenocarcinoma of the bladder who presented to the ED with worsening mental status and weakness. Patient has a home health nurse who comes in twice a week. The nurse found the patient sleeping on the floor upon arrival. The patient was noted to have worsening weakness and confusion compared to baseline. The patient lives alone with his who also has dementia. Their son would like to pursue 24-hour care for the patient's safety. Upon arrival to the ED, patient's labs were grossly normal. No obvious signs of infection. Chest x-ray showed no acute disease. Patient was admitted for placement. Altered mental status--dementia at baseline -Admitted to telemetry for cardiac monitoring. Patient has remained in sinus rhythm with no acute events -Repeat EKG shows NSR. Prolonged QT likely secondary to amiodarone -Head CT did not show any acute disease or intracranial findings. -MRI of the brain neg for acute disease Paroxysmal A. fib--currently in sinus rhythm -Continue amiodarone 200 mg PO qd HTN--stable -Hold metoprolol succinate 25 mg PO qd due to bradycardia Dementia/agitation/insomnia--pt has been lethargic -Hold olanzapine 5 mg PO qd for now Dispo -Patient lives alone with his who also has dementia. A home health nurse comes in twice a week for 1 hour. -PT/OT consult -Will need a 3 [place] stay to complete medicare recs for SNF placement. Referrals sent to [facility]
[2016-08-12 14:59] VITALS: BP 139/92; PULSE 76; TEMP 36.5; O2SAT 97
[2016-08-12] MEDS: AMIODARONE 200 MG TAB PO SCH (21:34)
[2016-08-12 22:55] VITALS: BP 148/85; PULSE 73; TEMP 36.7; O2SAT 96
[2016-08-13 07:13] VITALS: BP 120/66; PULSE 78; TEMP 37; O2SAT 97
[2016-08-13 14:51] VITALS: BP 145/82; PULSE 92; TEMP 36.6; TEMP 37.8; O2SAT 96
--- NOTE | 2016-08-13 15:06 | Hospitalist Progress Note ---
Hospitalist Progress Note Date of Service Aug 13, 2016. (Alyce Brower ., BRIANC) Subjective Pt evaluation today including: conversation w/ patient, conversation w/ family (spoke to niece and nephew on phone), physical exam, chart review, lab review, review of inpatient medication list Voiding: no voiding problems Unable to obtain ROS from patient due to mental status. Additional Comments: Unable to obtain ROS from patient due to mental status. (Alyce Brower, BRIANC) Objective Vital Signs Date Time Temp Pulse Resp B/P Pulse Ox O2 Delivery O2 Flow Rate FiO2 08/13/16 08:30 Room Air 08/13/16 07:13 37.0 78 16 120/66 97 Room Air 08/13/16 00:00 Room Air 08/12/16 22:55 36.7 73 16 148/85 96 Room Air 08/12/16 16:00 Room Air (Alyce Brower ., BIJAL-C) Physical Exam General Appearance: WD/WN, no apparent distress Eyes: normal inspection, PERRL, sclerae normal ENT: normal ENT inspection, hearing grossly normal, pharynx normal Neck: supple, no JVD, trachea midline Respiratory/Chest: lungs clear, normal breath sounds, no respiratory distress Cardiovascular: regular rate, rhythm, no gallop, no murmur Abdomen: normal bowel sounds, non tender, soft Extremities: non-tender, normal inspection, no pedal edema Neurologic/Psychiatric: alert, normal mood/affect, + disoriented (oriented to own name only) Skin: normal color, warm/dry, no rash (Alyce Brower, BIJAL-C) Assessment and Plan 80 y/o male with a history of dementia, paroxysmal a-fib, HTN, renal cell carcinoma s/p left nephrectomy, prostate cancer, and adenocarcinoma of the bladder who presented to the ED with worsening mental status and weakness. Patient has a home health nurse who comes in twice a week. The nurse found the patient sleeping on the floor upon arrival. The patient was noted to have worsening weakness and confusion compared to baseline. The patient lives alone with his who also has dementia. Their son would like to pursue 24-hour care for the patient's safety. Upon arrival to the ED, patient's labs were grossly normal. No obvious signs of infection. Chest x-ray showed no acute disease. Patient will be admitted for placement. Altered mental status--dementia at baseline -Admitted to telemetry for cardiac monitoring. No events, remained in SR. Transferred to med/surg -Repeat EKG shows NSR. Prolonged QT likely secondary to amiodarone -Head CT did not show any acute disease or intracranial findings. -MRI of the brain negative for acute findings Paroxysmal A. fib--currently in sinus rhythm -Continue amiodarone 200 mg PO qd HTN--stable -Continue metoprolol succinate, will start at lower dose 12.5 mg PO qd due to HR in 60s-70s Dementia/agitation/insomnia -Continue olanzapine 5 mg PO qd prn agitation Dispo -Patient lives alone with his who also has dementia. A home health nurse comes in twice a week for 1 hour. The son would like to have 24-hour care. -PT/OT evaluate and treat. social services director will be consulted for discharge planning/placement. -Case management following, SNF referrals placed to [facility] and [facility]. Accepted to [facility], but family does not want him to go there. Waiting on JV determination -Will d/c 1 on 1 sitter fo 24 hours prior to transfer (Alyce Brower ., BRANDON) Reviewed: Pt Seen/Exam by Me (Soledad Russo MD) History Physician Ms Sql Server Developer Supervision Note: I interviewed and examined the patient. Discussed with BIJAL Brower and agree with findings and plan as documented in the note. Any exceptions or clarifications are listed here: Pt not able to tell me anything intelligible but appears comfortable. Does say he is "pretty sleepy." RN reports no problems, taken off 1:1 sitter and no problems so far. VItals reviewed NAD. Anicteric sclerae, no ttp over neck RRR no mgr nl S1 S2 CTAB breathing unlabored Abd +BS soft, NT ND Ext no edema, no calf tenderness Skin: left dorsal wrist with small erythematous papule with central scab appears to be a needle stick A/P: 80 yo male with progressive dementia, here with being found down on floor of unknown cause. Infection ruled out as above. MRI brain ok, no CVA. Awaiting placement, keep off 1:1 and provide supportive care. Restrat Toprol for h/o PAF, no on AC for fall risk, make olanzaprine prn. Documented By: Soledad Russo (Soledad Russo MD)
[2016-08-13] MEDS ORDERED: OLANZAPINE 5 MG TAB PO PRN (15:15)
[2016-08-13 16:10] VITALS: O2SAT 96
[2016-08-13] MEDS: ACETAMINOPHEN 325 MG TAB PO PRN (17:23)
[2016-08-13] MEDS ORDERED: MAGNESIUM OXIDE 400 MG TAB PO SCH (20:00)
[2016-08-13] MEDS: AMIODARONE 200 MG TAB PO SCH (20:22)
[2016-08-14 00:26] VITALS: BP 148/85; PULSE 73; TEMP 36.4; O2SAT 97
[2016-08-14 07:13] VITALS: BP 142/76; PULSE 85; TEMP 37.5; O2SAT 94
[2016-08-14 08:00] VITALS: O2SAT 94
[2016-08-14] MEDS: MAGNESIUM OXIDE 400 MG TAB PO SCH (08:16)
[2016-08-14] MEDS: METOPROLOL SUCC 25MG EXT REL TAB PO SCH (08:16)
[2016-08-14 09:41] LABS: HEMATOCRIT 39.3 % (42-52); MEAN CELL VOLUME 89.7 fL (80-100); MEAN CORPUSCULAR HEMOGLOBIN 30.8 pg (25-34); MEAN CORPUSCULAR HGB CONC 34.4 g/dl (32-36); MEAN PLATELET VOLUME 9.1 fL (7.4-10.4); PLATELET COUNT 234 K/uL (130-400); RED BLOOD COUNT 4.38 M/uL (4.7-6.1); WHITE BLOOD COUNT 7.41 K/uL (4.8-10.8)
[2016-08-14 10:05] LABS: BUN/CREATININE RATIO 13.3 (10-20); CALCIUM 8.4 mg/dl (8.5-10.1); CREATININE 1.3 mg/dl (0.60-1.40); POTASSIUM 4.1 mmol/L (3.5-5.1)
--- NOTE | 2016-08-14 14:14 | Hospitalist Progress Note ---
Hospitalist Progress Note Date of Service Aug 14, 2016. (Alyce Brower PA-C) Subjective Pt evaluation today including: conversation w/ patient, physical exam, chart review, lab review, review of inpatient medication list PO Intake: Tolerating PO diet Voiding: incontinence (per nursing) Unable to obtain ROS from patient due to mental status. Additional Comments: Unable to obtain ROS from patient due to mental status. (Alyce Brower PA-C) Objective Vital Signs Date Time Temp Pulse Resp B/P Pulse Ox O2 Delivery O2 Flow Rate FiO2 08/14/16 08:00 94 Room Air 08/14/16 07:13 37.5 85 20 142/76 94 08/14/16 00:26 36.4 73 18 148/85 97 Room Air 08/14/16 00:00 Room Air 08/13/16 16:10 96 Room Air 08/13/16 14:51 36.6 92 16 145/82 96 Room Air (Alyce Brower PA-C) Physical Exam General Appearance: WD/WN, no apparent distress Eyes: normal inspection, PERRL, sclerae normal ENT: normal ENT inspection, hearing grossly normal, pharynx normal Neck: supple, no JVD, trachea midline Respiratory/Chest: lungs clear, normal breath sounds, no respiratory distress Cardiovascular: regular rate, rhythm, no gallop, no murmur Abdomen: normal bowel sounds, non tender, soft Extremities: non-tender, normal inspection, no pedal edema Neurologic/Psychiatric: alert, + disoriented (oriented to name only), + pertinent finding (flat affect) Skin: normal color, warm/dry, no rash (Alyce Brower PA-C) Laboratory Results Last 24 Hours Test 08/14/16 09:31 White Blood Count 7.41 K/uL Red Blood Count 4.38 M/uL Hemoglobin 13.5 g/dL Hematocrit 39.3 % Mean Corpuscular Volume 89.7 fL Mean Corpuscular Hemoglobin 30.8 pg Mean Corpuscular Hemoglobin Concent 34.4 g/dl RDW Standard Deviation 44.5 fL RDW Coefficient of Variation 13.5 % Platelet Count 234 K/uL Mean Platelet Volume 9.1 fL Sodium Level 141 mmol/L Potassium Level 4.1 mmol/L Chloride Level 105 mmol/L Carbon Dioxide Level 29 mmol/L Anion Gap 7.0 mmol/L Blood Urea Nitrogen 17 mg/dl Creatinine 1.30 mg/dl Est Creatinine Clear Calc Drug Dose 49.7 ml/min Estimated GFR () 59.7 Estimated GFR (Non- 51.5 BUN/Creatinine Ratio 13.3 Random Glucose 108 mg/dl Calcium Level 8.4 mg/dl Magnesium Level 2.0 mg/dl Vitamin B12 Level 379 pg/mL Folate > 24.00 ng/mL (Alyce Brower ., BRANDON) Assessment and Plan 80 y/o male with a history of dementia, paroxysmal a-fib, HTN, renal cell carcinoma s/p left nephrectomy, prostate cancer, and adenocarcinoma of the bladder who presented to the ED with worsening mental status and weakness. Patient has a home health nurse who comes in twice a week. The nurse found the patient sleeping on the floor upon arrival. The patient was noted to have worsening weakness and confusion compared to baseline. The patient lives alone with his who also has dementia. Their son would like to pursue 24-hour care for the patient's safety. Upon arrival to the ED, patient's labs were grossly normal. No obvious signs of infection. Chest x-ray showed no acute disease. Patient will be admitted for placement. Altered mental status--dementia at baseline. Per family, patient is at baseline in terms of mental status but had been more lethargic on arrival than usual. -Admitted to telemetry for cardiac monitoring. No events, remained in SR. Transferred to med/surg -Repeat EKG shows NSR. Prolonged QT likely secondary to amiodarone -Head CT did not show any acute disease or intracranial findings. -MRI of the brain negative for acute findings -TSH WNL -B12 and folate WNL -RPR, Lyme and B1 pending Paroxysmal A. fib--currently in sinus rhythm -Continue amiodarone 200 mg PO qd -Continue metoprolol succinate, will start at lower dose 12.5 mg PO qd due to HR in 60s-70s HTN--stable -Metoprolol as above Dementia/agitation/insomnia -Continue olanzapine 5 mg PO qd prn agitation Hypomagnesemia--resolved -Mg 1.7 on 08/12 -Started on Mag Ox 400 mg PO qd -Mg 2.0 on 08/14 Dispo -Patient lives alone with his who also has dementia. A home health nurse comes in twice a week for 1 hour. The son would like to have 24-hour care or placement. -PT/OT evaluate and treat. child and family services specialist will be consulted for discharge planning/placement. -Case management following, SNF referrals placed to [facility] and [facility]. Accepted to [facility], but family does not want him to go there. Patient does not meet detention requirements at [facility]. Pt's niece and nephew (POA) want to pursue personal care homes with dementia units. -1 on 1 sitter d/c'd for placement. Pt doing well on q15 min checks (Alyce Brower ., BRANDON) Reviewed: Pt Seen/Exam by Me, Labs (Soledad Russo MD) History Physician [employer] Supervision Note: I interviewed and examined the patient. Discussed with BIJAL Brower and agree with findings and plan as documented in the note. Any exceptions or clarifications are listed here: Pt not able to tell me anything intelligible but appears comfortable. Incontinent of urine, bladder scan within normal limits, RN reports a little restless today, left wrist wound appears worse. Afebrile iItals reviewed NAD. Anicteric sclerae, no ttp over neck RRR no mgr nl S1 S2 CTAB breathing unlabored Abd +BS soft, NT ND Ext no edema, no calf tenderness Skin: left dorsal wrist with small erythematous papule with central scab appears to be a needle stick, now with spreading erythema about 1 cm in all directions, scant drainage A/P: 80 yo male with progressive dementia, here with being found down on floor of unknown cause. Infection ruled out as above. MRI brain ok, no CVA. Labs normal so far as above, some other labs pending. Left wrist wound: Consult for Wound Care placed and will start clinda given h/o MRSA Awaiting placement Documented By: Soledad Russo (Soledad Russo MD)
[2016-08-14] MEDS ORDERED: OLANZAPINE 5 MG TAB PO ONE (14:30)
[2016-08-14 15:53] LABS: LYME DISEASE AB IGG POS (NEG); LYME DISEASE AB IGM EQUIVOCAL (NEG)
[2016-08-14 16:00] VITALS: BP 146/71; PULSE 77; TEMP 37.4; O2SAT 97
[2016-08-14] MEDS ORDERED: CLINDAMYCIN HCL 150 MG CAP PO ONE (16:30)
[2016-08-14] MEDS: DOXYCYCLINE HYCLATE 100 MG CAP PO SCH (19:53)
[2016-08-14] MEDS: AMIODARONE 200 MG TAB PO SCH (20:34)
[2016-08-14] MEDS ORDERED: CLINDAMYCIN HCL 150 MG CAP PO SCH (22:00)
[2016-08-15 00:32] VITALS: BP 154/79; PULSE 64; TEMP 36.5; O2SAT 95
[2016-08-15 01:14] LABS: RAPID PLASMA REAGIN NONREACTIVE (NONREACT)
[2016-08-15 07:24] VITALS: BP 131/76; PULSE 73; TEMP 36.8; O2SAT 96
[2016-08-15 07:35] VITALS: O2SAT 96
[2016-08-15] MEDS: METOPROLOL SUCC 25MG EXT REL TAB PO SCH (08:32)
[2016-08-15] MEDS: MAGNESIUM OXIDE 400 MG TAB PO SCH (08:32)
[2016-08-15] MEDS: DOXYCYCLINE HYCLATE 100 MG CAP PO SCH ×2 (08:32→21:33)
--- NOTE | 2016-08-15 10:27 | CONSULTATION REPORT ---
DATE OF CONSULTATION: 08/15/2016 DATE OF CONSULTATION: 08/15/2016. CHIEF COMPLAINT: Abscess, left wrist. HISTORY OF PRESENT ILLNESS: The patient was admitted to [facility] 6 days ago for evaluation of progressive dementia. The patient is unable to give me any effective history at this time due to his chronic mental status changes. Apparently an area of abscess formation was noted on the patient's left wrist by nursing yesterday and wound care was consulted. A culture had been obtained of the site at that time. PAST MEDICAL HISTORY: Positive for hypertension, asthma, dementia. PAST SURGICAL HISTORY: Positive for cholecystectomy, nephrectomy. MEDICATIONS: Noted in the nursing notes and were reviewed. ALLERGIES: SHELLFISH. REVIEW OF SYSTEMS: Review of systems were deferred at this time due to patient's chronic mental status changes. PHYSICAL EXAMINATION: GENERAL: The patient is sitting in a chair at bedside in no acute distress. The patient is alert, cooperative, follows commands without difficulty. Vital signs were reviewed and found to be unremarkable. The patient is afebrile. HEAD, EYES, EARS, NOSE, AND THROAT: Pupils equal and reactive to light. Sclerae clear. NECK: Supple. CHEST: Heart and lungs clear to auscultation. EXTREMITIES: Reveals the presence of a raised area of erythema measuring 0.2 x 0.2 x 0 cm on the left wrist. There is some surrounding erythema also noted. No active drainage present at the current time. Central fluctuance is noted. No distal erythema. Range of motion of the wrist and digits appeared intact. IMPRESSION: Abscess, left wrist. PLAN: At this time, the site did require incision and drainage. After appropriate preparation with Betadine, the area was infiltrated with lidocaine 2% without epinephrine. Incision was made with a #11 blade which expressed 2 cm of purulent material, some minimal bloody drainage followup which was controlled with pressure. The site was then packed with quarter inch iodoform, Optifoam dressing applied. Dressing will be changed tomorrow with packing removal. The patient tolerated this procedure well. This represented an incision and drainage of a simple singular abscess of the left wrist.
--- NOTE | 2016-08-15 15:58 | Hospitalist Progress Note ---
Hospitalist Progress Note Date of Service Aug 15, 2016. (Alyce Brower, BRANDON) Subjective Pt evaluation today including: conversation w/ patient, physical exam, chart review, lab review, review of inpatient medication list PO Intake: Nursing reports good oral intake today Voiding: incontinence Unable to obtain ROS from patient due to mental status. Additional Comments: Unable to obtain ROS from patient due to mental status. (Alyce Brower PA-C) Objective Vital Signs Date Time Temp Pulse Resp B/P Pulse Ox O2 Delivery O2 Flow Rate FiO2 08/15/16 07:35 96 Room Air 08/15/16 07:24 36.8 73 20 131/76 96 Room Air 08/15/16 00:32 36.5 64 18 154/79 95 Room Air 08/15/16 00:00 Room Air 08/14/16 19:00 Room Air 08/14/16 16:00 37.4 77 18 146/71 97 Room Air (Alyce Brower, BRIANC) Physical Exam General Appearance: WD/WN, no apparent distress Eyes: normal inspection, PERRL, sclerae normal ENT: normal ENT inspection, hearing grossly normal, pharynx normal Neck: supple, no JVD, trachea midline Respiratory/Chest: lungs clear, normal breath sounds, no respiratory distress Cardiovascular: regular rate, rhythm, no gallop, no murmur Abdomen: normal bowel sounds, non tender, soft Extremities: non-tender, normal inspection, no pedal edema, + pertinent finding (wound on L wrist bandaged with some drainage) Neurologic/Psychiatric: alert, normal mood/affect, + disoriented Skin: normal color, warm/dry, no rash (Alyce Brower, BIJAL-Tano) Assessment and Plan 80 y/o male with a history of dementia, paroxysmal a-fib, HTN, renal cell carcinoma s/p left nephrectomy, prostate cancer, and adenocarcinoma of the bladder who presented to the ED with worsening mental status and weakness. Patient has a home health nurse who comes in twice a week. The nurse found the patient sleeping on the floor upon arrival. The patient was noted to have worsening weakness and confusion compared to baseline. The patient lives alone with his who also has dementia. Their son would like to pursue 24-hour care for the patient's safety. Upon arrival to the ED, patient's labs were grossly normal. No obvious signs of infection. Chest x-ray showed no acute disease. Patient will be admitted for placement. Altered mental status--dementia at baseline. Per family, patient is at baseline in terms of mental status but had been more lethargic on arrival than usual. -Admitted to telemetry for cardiac monitoring. No events, remained in SR. Transferred to med/surg -Repeat EKG shows NSR. Prolonged QT likely secondary to amiodarone -Head CT did not show any acute disease or intracranial findings. -MRI of the brain negative for acute findings -TSH WNL -B12 and folate WNL -RPR nonreactive -Lyme IgG antibody positive. IgM antibodies equivocal. Western blot confirmation pending -B-1 pending Left wrist abscess -Dr. Leach I&D'd and packed with iodoform -Doxycycline 100 mg PO BID x 7 days. Will also cover Lyme. If WB confirms, will need doxy x 14 days Paroxysmal A. fib--currently in sinus rhythm -Continue amiodarone 200 mg PO qd -Continue metoprolol succinate, will start at lower dose 12.5 mg PO qd due to HR in 60s-70s HTN--stable -Metoprolol as above Dementia/agitation/insomnia -Continue olanzapine 5 mg PO qd prn agitation Hypomagnesemia--resolved -Mg 1.7 on 08/12 -Started on Mag Ox 400 mg PO qd -Mg 2.0 on 08/14 Dispo -Patient lives alone with his who also has dementia. A home health nurse comes in twice a week for 1 hour. The son would like to have 24-hour care or placement. -PT/OT evaluate and treat. office services clerk will be consulted for discharge planning/placement. -Case management following, SNF referrals placed to [facility] and [facility]. Accepted to [facility], but family does not want him to go there. Patient does not meet shelter requirements at [facility]. Pt's niece and nephew (POA) want to pursue personal care homes with dementia units. -Patient assessed by RN from [facility] who feels that they will be able to accept patient. Awaiting to hear back from patient's family and power of admitted attorneys -1 on 1 sitter d/c'd for placement. Pt doing well on q15 min checks (Alyce Brower ., PAOrquideaC) Reviewed: Pt Seen/Exam by Me (Soledad Russo MD) History Physician Director Of Cloud Services Supervision Note: I interviewed and examined the patient. Discussed with BIJAL Brower and agree with findings and plan as documented in the note. Any exceptions or clarifications are listed here: Pt not able to tell me anything intelligible but appears comfortable. Had wrist I&D today, growing Staph aureus and coag neg staph. Awaiting placement Vitals reviewed NAD. Anicteric sclerae, no ttp over neck RRR no mgr nl S1 S2 CTAB breathing unlabored Abd +BS soft, NT ND Ext no edema, no calf tenderness Skin: left dorsal wrist with spreading erythema about 2 cm in all directions from Optifoam over wound not removed A/P: 80 yo male with progressive dementia, here with being found down on floor of unknown cause. Infection ruled out as above. MRI brain ok, no CVA. Labs normal so far as above, except Lyme IgM equivocal, started doxy for wrist abscess as well as Lyme. Awaiting placement Documented By: Soledad Russo (Soledad Russo MD)
[2016-08-15 16:03] VITALS: BP 137/88; PULSE 76; TEMP 37.1; O2SAT 98
[2016-08-15] MEDS: ACETAMINOPHEN 325 MG TAB PO PRN (21:33)
[2016-08-15] MEDS: AMIODARONE 200 MG TAB PO SCH (21:34)
[2016-08-15 23:01] VITALS: BP 148/94; PULSE 100; TEMP 36.5; O2SAT 96
[2016-08-16 07:30] VITALS: BP 133/75; PULSE 61; TEMP 36.5; O2SAT 98
[2016-08-16] MEDS: DOXYCYCLINE HYCLATE 100 MG CAP PO SCH ×2 (08:52→20:05)
[2016-08-16] MEDS: METOPROLOL SUCC 25MG EXT REL TAB PO SCH (08:52)
[2016-08-16] MEDS: MAGNESIUM OXIDE 400 MG TAB PO SCH (08:53)
--- NOTE | 2016-08-16 13:35 | Hospitalist Progress Note ---
Hospitalist Progress Note Date of Service Aug 16, 2016. (Alyce Brower ., BIJAL-C) Subjective Pt evaluation today including: conversation w/ patient, physical exam, chart review, lab review, review of inpatient medication list Voiding: no voiding problems Unable to obtain ROS from patient due to mental status. Additional Comments: Unable to obtain ROS from patient due to mental status. (Alyce Brower, BIJAL-C) Objective Vital Signs Date Time Temp Pulse Resp B/P Pulse Ox O2 Delivery O2 Flow Rate FiO2 08/16/16 09:10 Room Air 08/16/16 07:30 36.5 61 18 133/75 98 Room Air 08/16/16 00:00 Room Air 08/15/16 23:01 36.5 100 20 148/94 96 Room Air 08/15/16 16:03 37.1 76 20 137/88 98 Room Air 08/15/16 15:30 Room Air (Alyce Brower ., BIJAL-C) Physical Exam General Appearance: WD/WN, no apparent distress Eyes: normal inspection, PERRL, sclerae normal ENT: normal ENT inspection, hearing grossly normal, pharynx normal Neck: supple, no JVD, trachea midline Respiratory/Chest: lungs clear, normal breath sounds, no respiratory distress Cardiovascular: regular rate, rhythm, no gallop, no murmur Abdomen: normal bowel sounds, non tender, soft Extremities: non-tender, normal inspection, no pedal edema, + pertinent finding (wound L wrist bandaged. less drainage today. surrounding erythema) Neurologic/Psychiatric: alert, normal mood/affect, + disoriented (oriented to name only) Skin: normal color, warm/dry, no rash (Alyce Brower ., BIJAL-C) Assessment and Plan 80 y/o male with a history of dementia, paroxysmal a-fib, HTN, renal cell carcinoma s/p left nephrectomy, prostate cancer, and adenocarcinoma of the bladder who presented to the ED with worsening mental status and weakness. Patient has a home health nurse who comes in twice a week. The nurse found the patient sleeping on the floor upon arrival. The patient was noted to have worsening weakness and confusion compared to baseline. The patient lives alone with his who also has dementia. Their son would like to pursue 24-hour care for the patient's safety. Upon arrival to the ED, patient's labs were grossly normal. No obvious signs of infection. Chest x-ray showed no acute disease. Patient will be admitted for placement. Altered mental status--dementia at baseline. Per family, patient is at baseline in terms of mental status but had been more lethargic on arrival than usual. -Admitted to telemetry for cardiac monitoring. No events, remained in SR. Transferred to med/surg -Repeat EKG shows NSR. Prolonged QT likely secondary to amiodarone -Head CT did not show any acute disease or intracranial findings. -MRI of the brain negative for acute findings -TSH WNL -B12 and folate WNL -RPR nonreactive -Lyme IgG antibody positive. IgM antibodies equivocal. Western blot confirmation pending -B-1 pending Left wrist abscess -Dr. Leach I&D'd and packed with iodoform -Doxycycline 100 mg PO BID x 7 days. Day #3. Will also cover Lyme. If WB confirms, will need doxy x 14 days Paroxysmal A. fib--currently in sinus rhythm -Continue amiodarone 200 mg PO qd -Continue metoprolol succinate, will start at lower dose 12.5 mg PO qd due to HR in 60s-70s HTN--stable -Metoprolol as above Dementia/agitation/insomnia -Continue olanzapine 5 mg PO qd prn agitation Hypomagnesemia--resolved -Mg 1.7 on 08/12 -Started on Mag Ox 400 mg PO qd -Mg 2.0 on 08/14 Dispo -Patient lives alone with his who also has dementia. A home health nurse comes in twice a week for 1 hour. The son would like to have 24-hour care or placement. -PT/OT evaluate and treat. nutrition services assistant will be consulted for discharge planning/placement. -Case management following, SNF referrals placed to [facility] and [facility]. Accepted to [facility], but family does not want him to go there. Patient does not meet shelter requirements at [facility]. Pt's niece and nephew (POA) want to pursue personal care homes with dementia units. -Patient assessed by RN from [facility] who feels that they will be able to accept patient. Awaiting to hear back from patient's family and power of district attorney -1 on 1 sitter d/c'd for placement. Pt doing well on q15 min checks (Alyce Brower ., PA-C) Reviewed: Pt Seen/Exam by Me (Soledad Russo MD) History Physician Candle Molder Machine Supervision Note: I interviewed and examined the patient. Discussed with BIJAL Brower and agree with findings and plan as documented in the note. Any exceptions or clarifications are listed here: Awaiting placement. Afebrile, Standing in room wringing plastic trash bag in his hands wearing nothing but a diaper Vitals reviewed NAD. Anicteric sclerae RRR no mgr nl S1 S2 CTAB breathing unlabored Abd +BS soft, NT ND Ext no edema, no calf tenderness Skin: left dorsal wrist with spreading erythema about 2 cm in all directions from Optifoam over wound not removed, not worse than previous A/P: 80 yo male with progressive dementia, here with being found down on floor of unknown cause. But family confirmed upon admission that is his baseline but was new to the visiting RN that found him like that. Infection ruled out as above except Lyme pending. MRI brain ok, no CVA. Labs normal so far as above, except Lyme IgM equivocal, started doxy for wrist abscess as well as Lyme. Wrist growing MSSA and Coag neg Staph Awaiting placement Documented By: Soledad Russo (Soledad Russo MD)
[2016-08-16] MEDS: ENOXAPARIN 40 MG/0.4 ML SYR SQ SCH (14:02)
[2016-08-16 15:18] VITALS: BP 137/77; PULSE 74; TEMP 37; O2SAT 97
[2016-08-16] MEDS: AMIODARONE 200 MG TAB PO SCH (20:05)
[2016-08-17 00:06] VITALS: BP 171/79; PULSE 66; TEMP 36.6; O2SAT 96
[2016-08-17 07:48] VITALS: BP 125/66; PULSE 59; TEMP 37; O2SAT 98
[2016-08-17] MEDS: MAGNESIUM OXIDE 400 MG TAB PO SCH (08:15)
[2016-08-17] MEDS: DOXYCYCLINE HYCLATE 100 MG CAP PO SCH ×2 (08:15→21:11)
[2016-08-17] MEDS: METOPROLOL SUCC 25MG EXT REL TAB PO SCH (08:15)
--- NOTE | 2016-08-17 13:56 | Hospitalist Progress Note ---
Hospitalist Progress Note Date of Service Aug 17, 2016. (Robyn Farfan ., BRIANC) Subjective Pt evaluation today including: conversation w/ patient, physical exam, chart review, lab review, review of inpatient medication list Voiding: no voiding problems, no incontinence Patient very pleasant. ROS not obtained secondary to dementia. Per nursing: Patient doing well. No acute events or concerns. (Robyn Farfan ., BRIANC) Medications Current Inpatient Medications Medications (Trade) Dose Ordered Sig/Sosa Route Start Time Stop Time Status Last Admin Dose Admin Acetaminophen (Tylenol Tab) 650 mg Q4H PRN PO 08/09/16 19:45 09/08/16 19:44 08/15/16 21:33 650 MG Nitroglycerin (Nitrostat Tab) 0.4 mg UD PRN SL 08/09/16 19:45 09/08/16 19:44 Ondansetron HCl (Zofran Inj) 4 mg Q6H PRN IV 08/09/16 19:45 09/08/16 19:44 Amiodarone HCl (Cordarone Tab) 200 mg QPM PO 08/09/16 21:30 09/08/16 21:29 08/16/16 20:05 200 MG Metoprolol Succinate (Toprol Xl Tab) 12.5 mg QAM PO 08/14/16 08:00 09/13/16 07:59 08/17/16 08:15 12.5 MG Olanzapine (Zyprexa Tab) 5 mg HS PRN PO 08/13/16 15:15 09/12/16 15:14 08/15/16 21:33 5 MG Magnesium Oxide (Mag-Ox Tab) 400 mg DAILY PO 08/14/16 08:00 09/13/16 07:59 08/17/16 08:15 400 MG Doxycycline Hyclate (Vibramycin Cap) 100 mg BID PO 08/14/16 19:00 08/24/16 18:59 08/17/16 08:15 100 MG Enoxaparin Sodium (Lovenox Inj) 40 mg Q24H SQ 08/16/16 13:00 09/15/16 12:59 08/17/16 14:07 40 MG (Robyn Farfan ., BRIANC) Objective Vital Signs Date Time Temp Pulse Resp B/P Pulse Ox O2 Delivery O2 Flow Rate FiO2 08/17/16 08:00 Room Air 08/17/16 07:48 37.0 59 16 125/66 98 08/17/16 00:06 36.6 66 20 171/79 96 Room Air 08/17/16 00:00 Room Air 08/16/16 20:00 Room Air 08/16/16 15:18 37.0 74 16 137/77 97 08/16/16 15:00 Room Air (Robyn Farfan ., PA-C) Physical Exam General Appearance: no apparent distress Eyes: normal inspection, PERRL ENT: hearing grossly normal Neck: supple Respiratory/Chest: lungs clear, no respiratory distress, no accessory muscle use Cardiovascular: regular rate, rhythm Abdomen: normal bowel sounds, non tender, soft Extremities: no pedal edema, no calf tenderness, + pertinent finding (L wrist in clean bandage w/out any obvious drainage/erythema ) Neurologic/Psychiatric: alert Skin: normal color, warm/dry, no rash (Robyn Farfan ., PA-C) Assessment and Plan 80 y/o male with a history of dementia, paroxysmal a-fib, HTN, renal cell carcinoma s/p left nephrectomy, prostate cancer, and adenocarcinoma of the bladder who presented to the ED with worsening mental status and weakness. Patient has a home health nurse who comes in twice a week. The nurse found the patient sleeping on the floor upon arrival. The patient was noted to have worsening weakness and confusion compared to baseline. The patient lives alone with his who also has dementia. Their son would like to pursue 24-hour care for the patient's safety. Upon arrival to the ED, patient's labs were grossly normal. No obvious signs of infection. Chest x-ray showed no acute disease. Patient will be admitted for placement. Altered mental status- dementia at baseline: - Admitted to telemetry for cardiac monitoring. No events, remained in SR. Transferred to med/surg - Repeat EKG shows NSR. Prolonged QT likely secondary to amiodarone - Head CT did not show any acute disease or intracranial findings. - MRI of the brain negative for acute findings - U/A negative - TSH WNL - B12 and folate, B1 WNL - RPR nonreactive - Lyme IgG antibody positive. IgM antibodies equivocal. Western blot confirmation pending Weakness: PT/OT following Left wrist abscess: - Dr. Leach I&D'd and packed with iodoform - Wound culture- Staphylococcus Aureus - Doxycycline 100 mg PO BID x 7 days. Day #4. Will also cover Lyme.--> If WB confirms, will need doxy treatment x 14 days Paroxysmal A. fib: - Continue Amiodarone 200 mg PO qd - Continue Metoprolol succinate, will start at lower dose 12.5 mg PO qd due to HR in 60s-70s HTN: - Metoprolol as above Dementia/agitation/insomnia: - Continue Olanzapine 5 mg PO qd prn agitation Hypomagnesemia- resolved: - Mg 1.7 on 08/12 - Started on Mag Ox 400 mg PO qd - Mg 2.0 on 08/14 DVT prophylaxis: Lovenox 40 mg SQ q24 hrs Dispo: Discharge to [facility] on 08/20 (Robyn Farfan PA-C) Reviewed: Pt Seen/Exam by Me (Soledad Russo MD) History Physician Cyber Forensics Analyst Supervision Note: I interviewed and examined the patient. Discussed with BIJAL Brower and agree with findings and plan as documented in the note. Any exceptions or clarifications are listed here: Awaiting placement. Afebrile, walking the halls when I saw him Vitals reviewed NAD. Anicteric sclerae Pulm breathing unlabored Skin: left dorsal wrist with erythema much improved, with Optifoam over wound not removed A/P: 80 yo male with progressive dementia, here with being found down on floor of unknown cause. But family confirmed upon admission that is his baseline but was new to the visiting RN that found him like that. Infection ruled out as above except Lyme pending. MRI brain ok, no CVA. Labs normal so far as above, except Lyme IgM equivocal, started doxy for wrist abscess as well as Lyme. Wrist growing MSSA and Coag neg Staph Awaiting placement Documented By: Soledad Russo (Soledad Russo MD)
[2016-08-17] MEDS: ENOXAPARIN 40 MG/0.4 ML SYR SQ SCH (14:07)
[2016-08-17 15:33] VITALS: BP 155/83; PULSE 78; TEMP 37; O2SAT 95
[2016-08-17] MEDS: AMIODARONE 200 MG TAB PO SCH (21:11)
[2016-08-17 23:42] VITALS: BP 105/62; PULSE 62; TEMP 36.5; O2SAT 97
[2016-08-18 07:12] VITALS: BP 136/78; PULSE 94; TEMP 36.7; O2SAT 95
[2016-08-18] MEDS: METOPROLOL SUCC 25MG EXT REL TAB PO SCH (08:16)
[2016-08-18] MEDS: MAGNESIUM OXIDE 400 MG TAB PO SCH (08:16)
[2016-08-18] MEDS: DOXYCYCLINE HYCLATE 100 MG CAP PO SCH ×2 (08:16→20:48)
[2016-08-18] MEDS: ENOXAPARIN 40 MG/0.4 ML SYR SQ SCH (13:27)
[2016-08-18 15:56] VITALS: BP 153/72; PULSE 77; TEMP 36.7; O2SAT 96
--- NOTE | 2016-08-18 16:49 | Hospitalist Progress Note ---
Hospitalist Progress Note Date of Service Aug 18, 2016. Subjective Pt evaluation today including: conversation w/ patient, physical exam, review of inpatient medication list No problems, continues to wander the hallways in a safe environment RN has created for him. He is not agitated when allowed to walk freely around with close supervision. Afebrile Additional Comments: unobtainable due to dementia Objective Vital Signs Date Time Temp Pulse Resp B/P Pulse Ox O2 Delivery O2 Flow Rate FiO2 08/18/16 15:56 36.7 77 16 153/72 96 Room Air 08/18/16 15:45 Room Air 08/18/16 08:00 Room Air 08/18/16 07:12 36.7 94 20 136/78 95 Room Air 08/17/16 23:59 Room Air 08/17/16 23:42 36.5 62 18 105/62 97 Room Air 08/17/16 20:00 Room Air Physical Exam General Appearance: WD/WN, no apparent distress Eyes: normal inspection, sclerae normal ENT: hearing grossly normal Neurologic/Psychiatric: alert, + pertinent finding (walking with normal gait, no ataxia) Skin: + pertinent finding (left dorsal wrist with minimal erythema surrounding wound with Optifoam in palce) Assessment and Plan 80 y/o male with a history of dementia, paroxysmal a-fib, HTN, renal cell carcinoma s/p left nephrectomy, prostate cancer, and adenocarcinoma of the bladder who presented to the ED with worsening mental status and weakness. Patient has a home health nurse who comes in twice a week. The nurse found the patient sleeping on the floor upon arrival. The patient was noted to have worsening weakness and confusion compared to baseline. The patient lives alone with his who also has dementia. Their son would like to pursue 24-hour care for the patient's safety. Upon arrival to the ED, patient's labs were grossly normal. No obvious signs of infection. Chest x-ray showed no acute disease. Patient will be admitted for placement. Suspected AMS ruled out, found down with chronic progressive dementia: - Admitted to telemetry for cardiac monitoring. No events, remained in SR. Transferred to med/surg - Repeat EKG shows NSR. Prolonged QT likely secondary to amiodarone - Head CT did not show any acute disease or intracranial findings. - MRI of the brain negative for acute findings - U/A negative - TSH WNL - B12 and folate, B1 WNL - RPR nonreactive - Lyme antibody positive. IgM antibodies equivocal. Western blot confirmation pending --is on doxy as a prophylaxis for Lyme but also for cellulitis as below. If WB confirms, will need doxy treatment x 14 days - Continue Olanzapine 5 mg PO qd prn agitation Weakness: PT/OT following -resolved, is ambulating halls Left wrist abscess: - Dr. Leach I&D'd and packed with iodoform which is since removed - Wound culture-MSSA - Doxycycline 100 mg PO BID x 7 days. Day #5. Paroxysmal A. fib:stable, no issues - Continue Amiodarone 200 mg PO qd - Continue Metoprolol succinate, lowered dose to 12.5 mg PO qd due to HR in 60s- 70s HTN:stable, no issues - Metoprolol as above Hypomagnesemia- resolved: DVT prophylaxis: Lovenox 40 mg SQ q24 hrs Dispo: Discharge to [facility] on 08/20
[2016-08-18] MEDS: AMIODARONE 200 MG TAB PO SCH (20:48)
[2016-08-18 23:48] VITALS: BP 179/83; PULSE 67; TEMP 36.4; O2SAT 98
[2016-08-19 00:38] VITALS: BP 143/77; PULSE 71
[2016-08-19 07:12] VITALS: BP 166/82; PULSE 64; TEMP 36.3; O2SAT 97
[2016-08-19] MEDS: METOPROLOL SUCC 25MG EXT REL TAB PO SCH (08:22)
[2016-08-19] MEDS: MAGNESIUM OXIDE 400 MG TAB PO SCH (08:22)
[2016-08-19] MEDS: DOXYCYCLINE HYCLATE 100 MG CAP PO SCH ×2 (08:23→19:47)
--- NOTE | 2016-08-19 10:39 | Hospitalist Progress Note ---
Hospitalist Progress Note Date of Service Aug 19, 2016. Subjective Pt evaluation today including: conversation w/ patient, conversation w/ family (son Anika) Voiding: no voiding problems Eating, moving bowels, walking the halls frequently but today is sitting in chair by the window. Denies pain. When asked what his name was, he states "Isn' t that terible?" in reference to the fact he doesn't know his own name. Constitutional: No fever All Other Systems: Reviewed and Negative Objective Vital Signs Date Time Temp Pulse Resp B/P Pulse Ox O2 Delivery O2 Flow Rate FiO2 08/19/16 08:00 Room Air 08/19/16 07:12 36.3 64 16 166/82 97 Room Air 08/19/16 00:38 71 143/77 08/18/16 23:59 Room Air 08/18/16 23:48 36.4 67 20 179/83 98 Room Air 08/18/16 20:00 Room Air 08/18/16 15:56 36.7 77 16 153/72 96 Room Air 08/18/16 15:45 Room Air Physical Exam General Appearance: WD/WN, no apparent distress Eyes: normal inspection, sclerae normal Neck: trachea midline Respiratory/Chest: lungs clear, normal breath sounds, no respiratory distress, no accessory muscle use Cardiovascular: regular rate, rhythm, no edema, no gallop, no murmur Abdomen: normal bowel sounds, non tender, soft Extremities: normal inspection, no pedal edema, no calf tenderness Neurologic/Psychiatric: alert, + disoriented Skin: + pertinent finding (left dorsal wrist wound is significantly improved wit almost no erythema, scant drainage on dressing) Assessment and Plan 80 y/o male with a history of dementia, paroxysmal a-fib, HTN, renal cell carcinoma s/p left nephrectomy, prostate cancer, and adenocarcinoma of the bladder who presented to the ED with worsening mental status and weakness. Patient has a home health nurse who comes in twice a week. The nurse found the patient sleeping on the floor upon arrival. The patient was noted to have worsening weakness and confusion compared to baseline. The patient lives alone with his who also has dementia. Their son would like to pursue 24-hour care for the patient's safety. Upon arrival to the ED, patient's labs were grossly normal. No obvious signs of infection. Chest x-ray showed no acute disease. Patient will be admitted for placement. Suspected AMS ruled out, found down with chronic progressive dementia: - Admitted to telemetry for cardiac monitoring. No events, remained in SR. Transferred to med/surg - Repeat EKG shows NSR. Prolonged QT likely secondary to amiodarone - Head CT did not show any acute disease or intracranial findings. - MRI of the brain negative for acute findings - U/A negative - TSH WNL - B12 and folate, B1 WNL - RPR nonreactive - Lyme antibody positive. IgM antibodies equivocal. Western blot confirmation pending --is on doxy as a prophylaxis for Lyme but also for cellulitis as below. If WB confirms, will need doxy treatment x 14 days - Continue Olanzapine 5 mg PO qd prn agitation Weakness: PT/OT following -resolved, is ambulating halls Left wrist abscess: Much improved - Dr. Leach I&D'd and packed with iodoform which is since removed - Wound culture-MSSA - Doxycycline 100 mg PO BID x 7 days. Day #6. Paroxysmal A. fib:stable, no issues, in NSR now - Continue Amiodarone 200 mg PO qd - Continue Metoprolol succinate, lowered dose to 12.5 mg PO qd due to HR in 60s- 70s but will increase again as having some intermittent tachycardia and HTN--> to 25mg HTN:BPs high at times - Metoprolol as above will be increased Hypomagnesemia- resolved: DVT prophylaxis: Lovenox 40 mg SQ q24 hrs Dispo: Discharge to [facility] on 08/20
[2016-08-19] MEDS: ENOXAPARIN 40 MG/0.4 ML SYR SQ SCH (13:19)
[2016-08-19 15:14] VITALS: BP 152/79; PULSE 70; TEMP 36.4; O2SAT 97
[2016-08-19] MEDS: AMIODARONE 200 MG TAB PO SCH (19:48)
[2016-08-19 23:57] VITALS: BP 151/81; PULSE 64; TEMP 36.6; O2SAT 98
[2016-08-20 07:28] VITALS: BP 122/75; PULSE 68; TEMP 36.8; O2SAT 96
[2016-08-20] MEDS: METOPROLOL SUCC 25MG EXT REL TAB PO SCH (07:45)
[2016-08-20] MEDS: DOXYCYCLINE HYCLATE 100 MG CAP PO SCH (07:45)
[2016-08-20] MEDS: MAGNESIUM OXIDE 400 MG TAB PO SCH (07:45)
[2016-08-20] MEDS ORDERED: DXY100 PO (08:25)
[2016-08-20] MEDS ORDERED: MGNO400 PO (08:25)
--- NOTE | 2016-08-20 08:28 | Discharge Instructions ---
Discharge Instructions Date of Service Aug 20, 2016. Admission Reason for Admission: Confusion, Dementia Discharge Discharge Diagnosis / Problem: Confusion; Dementia Discharge Goals Goal(s): Improve function, Increase independence, Diagnostic testing, Therapeutic intervention, Prevent Disease Progression Activity Recommendations Activity Limitations: resume your previous activity . Instructions / Follow-Up Instructions / Follow-Up New medications: 1. Doxycycline 100 mg by mouth twice per day until prescription is complete. BEGIN THIS MEDICATION TONIGHT (08/20) This medication is used to treat the wound on your left wrist This medication is also used to treat Lyme Disease. Initial testing was positive for Lyme. The confirmation test is still pending. If positive, you will need 14 days (7 more days) of Doxycycline treatment. 2. Mag-Ox supplement, 400 mg by mouth once per day. BEGIN THIS MEDICATION TOMORROW (08/21) This supplement is used to treat low magnesium level Resume all other regular home medications as prescribed to you Please follow-up with your PCP within 5-7 days Please follow-up/keep all of your subspecialty appointments Current Hospital Diet Patient's current hospital diet: Regular Diet Discharge Diet Recommended Diet: Regular Diet Procedures Procedures Performed: 1. Chest x-ray 2. Head CT 3. Brain MRI Pending Studies Studies pending at discharge: yes List of pending studies: 1. [place] blot Medical Emergencies . Who to Call and When: Medical Emergencies: If at any time you feel your situation is an emergency, please call 911 immediately. . Non-Emergent Contact Non-Emergency issues call your: Primary Care Provider . . "Provider Documentation" section prepared by Robyn Farfan. VTE Core Measure Inpt VTE Proph given/why not?: Enoxaparin (Lovenox)SQ, SCD's
--- NOTE | 2016-08-20 08:33 | Discharge Summary ---
Discharge Summary Date of Service Aug 20, 2016. Discharge Summary Admission Date: Aug 09, 2016 at 19:39 Discharge Date: Aug 20, 2016 Discharge Disposition: Personal care Principal Diagnosis: AMS; dementia Problems/Secondary Diagnoses: 1. Altered mental status 2. Weakness 3. Left wrist abscess 4, Paroxysmal a. fib 5. HTN 6. Dementia/agitation 7. Insomnia 8. Hypomagnesemia Immunizations: Have You Had Influenza Vaccine: Unknown History of Tetanus Vaccine?: Unknown History of Pneumococcal: Unknown History of Hepatitis B Vaccine: Unknown Procedures: CHEST ONE VIEW PORTABLE CLINICAL HISTORY: weakness dyspnea COMPARISON STUDY: 05/20/2016 FINDINGS: The bones soft tissues and hemidiaphragms are normal. The cardiomediastinal silhouette is normal. The lungs are clear. The pulmonary vasculature is normal. IMPRESSION: Negative chest. Electronically signed by: Arnaud Rosa M.D. 08/09/2016 2:49 PM Dictated Date/Time: 08/09/2016 2:49 PM The status of this report is Signed. Draft = Not yet reviewed or approved by Radiologist. Signed = Reviewed and approved by Radiologist. CT HEAD WITHOUT CONTRAST (CT) CLINICAL HISTORY: Acute change in mental status. Loss of consciousness. Weakness. COMPARISON STUDY: 05/20/2016 TECHNIQUE: Axial CT of the brain is performed from the vertex to the skull base. IV contrast was not administered for this examination. CT DOSE: 712.55 mGy.cm FINDINGS: No intra or extra-axial mass lesions are visualized. There is no CT evidence of acute cortical infarction. There is no evidence of midline shift. There is no acute hemorrhage. No calvarial fractures are visualized. There are patchy white matter hypodensities likely on a small vessel basis. There is no evidence of pathologic ventricular dilatation. There is no evidence of acute sinusitis IMPRESSION: No acute intracranial findings Electronically signed by: Doug Kwok M.D. 08/09/2016 8:48 PM Dictated Date/Time: 08/09/2016 8:47 PM The status of this report is Signed. Draft = Not yet reviewed or approved by Radiologist. Signed = Reviewed and approved by Radiologist. MRI OF THE BRAIN WITHOUT AND WITH IV CONTRAST CLINICAL HISTORY: Confusion. Dementia. Weakness. Loss of consciousness. COMPARISON STUDY: Head CT dated 08/09/2016, MR the brain dated 04/20/2015 TECHNIQUE: MRI of the brain was performed from the vertex to the skull base utilizing various T1 and T2 weighted sequences. Following the IV administration of 7.5 mL of Gadavist contrast, additional enhanced images were obtained. FINDINGS: Sagittal T1, axial diffusion, proton density and T2 weighted axial, coronal FLAIR, and pre and post axial T1-weighted images were acquired. These were supplemented with post gadolinium coronal T1 weighted images. No intra or extra-axial mass lesions are visualized. Axial diffusion-weighted images reveal no evidence of acute or subacute infarction. There is no evidence of ventricular dilatation. Proton density T2-weighted and FLAIR images reveal moderate foci of increased T2 signal within the white matter, likely on a small vessel basis. The findings remain similar to the prior April 2015 study. There are no abnormal flow voids. There is no evidence of pathologic enhancement. IMPRESSION: No significant change from the preceding study. Moderate foci of increased T2 signal within the white matter likely on a small vessel basis. No evidence of intracranial mass. No evidence of acute or subacute infarction. Electronically signed by: Doug Kwok M.D. 08/10/2016 10:11 AM Dictated Date/Time: 08/10/2016 10:08 AM The status of this report is Signed. Draft = Not yet reviewed or approved by Radiologist. Signed = Reviewed and approved by Radiologist. Medication Reconciliation New Medications: Doxycycline Hyclate (Doxycycline Hyclate) 100 Mg Cap 100 MG PO BID, #2 CAP Magnesium Oxide (Magnesium-Oxide) 400 Mg Tab 400 MG PO DAILY, #30 TAB Continued Medications: Amiodarone Hcl (Cordarone) 200 Mg Tab 200 MG PO QPM Metoprolol Succinate (Metoprolol Succinate ER) 25 Mg Tabcr 25 MG PO DAILY Olanzapine (Olanzapine) 5 Mg Tab 5 MG PO QPM, #30 Referrals At Discharge Follow up Referrals: Family Practice Referral - Within 1 Week with Vinayak Turner M.D. Discharge Exam Unable to obtain ROS secondary to dementia Physical Exam: General Appearance: no apparent distress Eyes: PERRL ENT: hearing grossly normal Neck: supple Respiratory/Chest: lungs clear, no respiratory distress, no accessory muscle use Cardiovascular: regular rate, rhythm Abdomen / GI: normal bowel sounds, non tender, soft Extremities: no calf tenderness, no pedal edema, + pertinent finding (L wrist wound dressed in clean dressing- no drainage noted ) Neurologic/Psychiatric: alert, + disoriented Skin: normal color, warm/dry, no rash Hospital Course 80 y/o male with a history of dementia, paroxysmal a-fib, HTN, renal cell carcinoma s/p left nephrectomy, prostate cancer, and adenocarcinoma of the bladder who presented to the ED with worsening mental status and weakness. Patient has a home health nurse who comes in twice a week. The nurse found the patient sleeping on the floor upon arrival. The patient was noted to have worsening weakness and confusion compared to baseline. The patient lives alone with his who also has dementia. Their son would like to pursue 24-hour care for the patient's safety. Upon arrival to the ED, patient's labs were grossly normal. No obvious signs of infection. Chest x-ray showed no acute disease. Patient will be admitted for placement. Altered mental status- dementia at baseline: - Admitted to telemetry for cardiac monitoring. No events, remained in SR. Transferred to med/surg - Repeat EKG shows NSR. Prolonged QT likely secondary to amiodarone - Head CT did not show any acute disease or intracranial findings. - MRI of the brain negative for acute findings - U/A negative - TSH WNL - B12 and folate, B1 WNL - RPR nonreactive - Lyme IgG antibody positive. IgM antibodies equivocal. Western blot confirmation pending Weakness: PT/OT following Left wrist abscess: - Dr. Leach I&D'd and packed with iodoform - Wound culture- Staphylococcus Aureus - Doxycycline 100 mg PO BID x 14 doses. Will also cover Lyme.--> If WB confirms , will need doxy treatment x 14 days (28 doses) * At discharge, patient has 2 more doses of Doxycycline to complete 7 day course for wound. If Western Blot confirms, patient will be notified and additional 7 days of treatment is indicated Paroxysmal A. fib: - Continue Amiodarone 200 mg PO qd - Continue Metoprolol succinate, will start at lower dose 12.5 mg PO qd due to HR in 60s-70s--> restarted Metoprolol 25 mg PO daily due to elevated BPs. * At discharge, continue Metoprolol 25 mg PO daily HTN: - Metoprolol as above Dementia/agitation/insomnia: - Continue Olanzapine 5 mg PO qd prn agitation *Continue at discharge Hypomagnesemia- resolved: - Started on Mag Ox 400 mg PO qd *Continue at discharge DVT prophylaxis: Lovenox 40 mg SQ q24 hrs Dispo: Discharge to [facility] Total Time Spent: Greater than 30 minutes This includes examination of the patient, discharge planning, medication reconciliation, and communication with other providers. Discharge Instructions Please refer to the electronic Patient Visit Report (Discharge Instructions) for additional information. Follow-Up Please follow-up with your PCP within 5-7 days Please follow-up/keep all of your subspecialty appointments Additional Copies To Vinayak Turner M.D.
[2016-08-20 11:28] VITALS: BP 122/75; PULSE 68; TEMP 36.8; O2SAT 96
[2016-08-20] MEDS: ENOXAPARIN 40 MG/0.4 ML SYR SQ SCH (13:21)
[2016-08-21 05:33] LABS: 18KDIGG BAND REACTIVE (NONREACTIVE); 23KDIGG BAND REACTIVE (NONREACTIVE); 23KDIGM BAND REACTIVE (NONREACTIVE); 28KDIGG BAND REACTIVE (NONREACTIVE); 30KDIGG BAND NONREACTIVE (NONREACTIVE); 39KDIGG BAND REACTIVE (NONREACTIVE); 39KDIGM BAND NONREACTIVE (NONREACTIVE); 41KDIGG BAND REACTIVE (NONREACTIVE); 41KDIGM BAND NONREACTIVE (NONREACTIVE); 45KDIGG BAND REACTIVE (NONREACTIVE); 58KDIGG BAND REACTIVE (NONREACTIVE); 66KDIGG BAND REACTIVE (NONREACTIVE); 93KDIGG BAND NONREACTIVE (NONREACTIVE)
== END 2016-08-20 13:40 | disposition home or self-care (01) | DRG 884 ==
LOC: ENRESERVDT → ENRESERVTM → EDBD 12:43 → C.EDC 12:44 → C.2T 19:39 → C.MS4W 08-10 16:01
PROVIDERS: ADMIT Hospitalist; ATTEND Family Medicine
PROC: 0H9EXZZ Drainage of Left Lower Arm Skin, External Approach (ICD-10-PCS; principal; 2016-08-15)
DX: F03.90 Unspecified dementia, unspecified severity, without behavioral disturbance, psychotic disturbance, mood disturbance, and anxiety (principal); L02.414 Cutaneous abscess of left upper limb; A69.20 Lyme disease, unspecified; T46.2X5A Adverse effect of other antidysrhythmic drugs, initial encounter; J45.909 Unspecified asthma, uncomplicated; Z85.46 Personal history of malignant neoplasm of prostate; I10 Essential (primary) hypertension; I48.0 Paroxysmal atrial fibrillation; Z90.5 Acquired absence of kidney; G47.00 Insomnia, unspecified; E83.42 Hypomagnesemia; B95.61 Methicillin susceptible Staphylococcus aureus infection as the cause of diseases classified elsewhere; I45.81 Long QT syndrome; Y92.239 Unspecified place in hospital as the place of occurrence of the external cause; Z85.51 Personal history of malignant neoplasm of bladder

== ENCOUNTER 2017-06-17 11:55 | Emergency (ER) | payer OTHER, MEDICARE ==
[~2017-06-17] VITALS: Ht 167.6 cm; Wt 84.1 kg
[~2017-06-17 11:55] MED LIST changes: +ACET-1256 PO; -CLR10 PO; +MAGN400T6 PO; -METO25TA3 PO; -WARF-280 PO; +ZYP5 PO
[2017-06-17 12:04] VITALS: Ht 167.6 cm; Wt 84.1 kg
--- NOTE | 2017-06-17 12:19 | EMERGENCY ROOM VISIT NOTE ---
History Report prepared by Joby: Cole Varela Under the Supervision of: Dr. aZhira Henry M.D. First contact with patient: 12:11 Chief Complaint: ALTERED MENTAL STATUS Stated Complaint: AMD/POSSIBLE UTI Nursing Triage Summary: Patient is from [facility], today he became combative with staff which is unsual for patient. History of dementia. Sent in for evaluation of possible UTI. History of Present Illness The patient is an 81 year old male with a history of dementia who presents to the Emergency Room from [facility] with a persistent altered mental status this morning. Per the patient's son, he was told that the patient has been noted to be fairly combative particularly towards the staff at [facility], and the patient was sent here for evaluation of possible UTI. The patient was noted to be completely normal at dinner last night and ate some food. The patient's son states that this kind of combativeness is very unusual for the patient, but a year ago the patient had a bout of altered mental status, and was sent to [facility] for a couple weeks. Any recent falls were denied on behalf of the patient. The patient is noted to be incontinent of urine at times. History limited secondary to patient's altered mental status. Source of History: family (son) History Limited By: AMS Onset: This morning Position: other (global - AMS) Symptom Intensity: combative with staff Quality: other (unusual for patient to be like this) Timing: other (persistent) Note: Patient was noted to be fine last night. Review of Systems ROS limited secondary to patient's altered mental status. Past Medical & Surgical Medical Problems: (1) ACQRD ABSENCE OF KIDNEY (2) Asthma (3) CATARACT NOS (4) Cellulitis of left arm (5) Dementia (6) Dementia (7) HX-PROSTATIC MALIGNANCY (8) Hypertension (9) kidney cancer (10) UMBILICAL HERNIA (11) unilateral nephrectomy Surgical Problems: (1) History of cholecystectomy (2) History of nephrectomy Family History FH: cancer FHx: cancer Kidney disease or stones Social History Smoking Status: Never Smoker Alcohol Use: occasionally Drug Use: none Marital Status: Housing Status: lives with significant other Occupation Status: retired Current/Historical Medications Scheduled Amiodarone Hcl (Cordarone), 200 MG PO QPM Magnesium Oxide (Mag-Ox), 400 MG PO DAILY Metoprolol Succinate (Metoprolol Succinate ER), 25 MG PO DAILY Olanzapine (Olanzapine), 5 MG PO QPM Scheduled PRN Acetaminophen (Tylenol), 1,000 MG PO Q8 PRN for Pain Allergies Coded Allergies: Shellfish (Verified Allergy, Intermediate, GI DISTRESS, RASH, 08/09/16) Physical Exam Vital Signs Date Time Temp Pulse Resp B/P (MAP) Pulse Ox O2 Delivery O2 Flow Rate FiO2 06/17/17 14:39 64 16 153/88 96 Room Air 06/17/17 13:23 63 16 146/79 94 Room Air 06/17/17 12:23 63 06/17/17 12:09 Room Air 06/17/17 12:04 36.8 69 16 150/88 94 Room Air Physical Exam Vital signs reviewed. General: Pleasantly confused 81 year old male, in no significant distress. Does not answer questions appropriately but follows commands. HEENT: No scleral icterus, PERRLA, neck supple. Atraumatic. Cardiovascular: Regular rate and rhythm, no extra sounds. Pulmonary: Clear to auscultation bilaterally, normal work of breathing. Abdomen: Soft, nontender, nondistended, positive bowel sounds. Musculoskeletal: Atraumatic, no peripheral edema. Neurologic: Patient is pleasantly confused, does not answer questions appropriately but follows commands , full strength in all 4 extremities. Cranial nerves 2 through 12 grossly intact. Skin: Warm, dry, no rash Medical Decision & Procedures ER Provider Diagnostic Interpretation: Radiology results as stated below per my review and radiologist interpretation: CHEST ONE VIEW PORTABLE HISTORY: 81 years-old Male agitiation, AMS acute altered mental status COMPARISON: Chest radiographs 04/09/2017, 08/09/2016 05/20/2017, CT abdomen and pelvis 10/11/2012 TECHNIQUE: Portable AP view of the chest FINDINGS: Cardiac silhouette is mildly enlarged. Atherosclerosis of the aorta. No pneumothorax, pleural effusion or focal airspace consolidation. There are linear left perihilar and bibasilar subsegmental opacities suggesting areas of atelectasis/scarring. Subdiaphragmatic lucency noted on the right which appears similar on study dated 04/09/2017 and 05/20/2016 suggesting air within the colon. Degenerative changes are noted within the spine and shoulders. IMPRESSION: 1. Subsegmental atelectasis or scarring of the lung bases and left perihilar distribution. 2. Right subdiaphragmatic lucency appears similar to comparison study suggesting air within colon. Pneumoperitoneum is thought to be less likely. The above report was generated using voice recognition software. It may contain grammatical, syntax or spelling errors. Electronically signed by: Louie Blanco M.D. 06/17/2017 1:22 PM Dictated Date/Time: 06/17/2017 1:18 PM HEAD WITHOUT CONTRAST (CT) CLINICAL HISTORY: 81 years-old Male with AMS. Acute altered mental status TECHNIQUE: Multiple axial CT images of the head were obtained without contrast. A dose lowering technique was utilized adhering to the principles of ALARA. CT DOSE: 776.86 mGycm COMPARISON: CT head 08/09/2016, MRI brain 08/10/2016. FINDINGS: No acute intracranial hemorrhage, midline shift, intracranial mass, hydrocephalus, territorial ischemia or abnormal extra-axial collection. Mild to moderate atrophy. Patchy areas of white matter low attenuation are again seen within the subcortical and periventricular distributions compatible with chronic microvascular ischemic changes. The calvarium is intact. The paranasal sinuses, mastoid air cells, and middle ear cavities are clear. IMPRESSION: No acute intracranial abnormality. The above report was generated using voice recognition software. It may contain grammatical, syntax or spelling errors. Electronically signed by: Louie Blanco M.D. 06/17/2017 3:01 PM Dictated Date/Time: 06/17/2017 2:58 PM Laboratory Results 06/17/17 12:55 Red Blood Count 4.36, Mean Corpuscular Volume 91.5, Mean Corpuscular Hemoglobin 31.2, Mean Corpuscular Hemoglobin Concent 34.1, Mean Platelet Volume 9.3, Neutrophils (%) (Auto) 65.3, Lymphocytes (%) (Auto) 20.4, Monocytes (%) (Auto) 10.3, Eosinophils (%) (Auto) 3.3, Basophils (%) (Auto) 0.5, Neutrophils # (Auto ) 4.21, Lymphocytes # (Auto) 1.31, Monocytes # (Auto) 0.66, Eosinophils # (Auto ) 0.21, Basophils # (Auto) 0.03 06/17/17 12:55 Test 06/17/17 12:55 06/17/17 13:05 06/17/17 13:20 White Blood Count 6.43 K/uL (4.8-10.8) Red Blood Count 4.36 M/uL (4.7-6.1) Hemoglobin 13.6 g/dL (14.0-18.0) Hematocrit 39.9 % (42-52) Mean Corpuscular Volume 91.5 fL (80-100) Mean Corpuscular Hemoglobin 31.2 pg (25-34) Mean Corpuscular Hemoglobin Concent 34.1 g/dl (32-36) Platelet Count 240 K/uL (130-400) Mean Platelet Volume 9.3 fL (7.4-10.4) Neutrophils (%) (Auto) 65.3 % Lymphocytes (%) (Auto) 20.4 % Monocytes (%) (Auto) 10.3 % Eosinophils (%) (Auto) 3.3 % Basophils (%) (Auto) 0.5 % Neutrophils # (Auto) 4.21 K/uL (1.4-6.5) Lymphocytes # (Auto) 1.31 K/uL (1.2-3.4) Monocytes # (Auto) 0.66 K/uL (0.11-0.59) Eosinophils # (Auto) 0.21 K/uL (0-0.5) Basophils # (Auto) 0.03 K/uL (0-0.2) RDW Standard Deviation 44.2 fL (36.4-46.3) RDW Coefficient of Variation 13.3 % (11.5-14.5) Immature Granulocyte % (Auto) 0.2 % Immature Granulocyte # (Auto) 0.01 K/uL (0.00-0.02) Anion Gap 6.0 mmol/L (3-11) Est Creatinine Clear Calc Drug Dose 57.8 ml/min Estimated GFR () 79.5 Estimated GFR (Non- 68.6 BUN/Creatinine Ratio 15.8 (10-20) Calcium Level 8.7 mg/dl (8.5-10.1) Magnesium Level 2.1 mg/dl (1.8-2.4) Total Bilirubin 0.3 mg/dl (0.2-1) Direct Bilirubin < 0.1 mg/dl (0-0.2) Aspartate Amino Transf (AST/SGOT) 19 U/L (15-37) Alanine Aminotransferase (ALT/SGPT) 19 U/L (12-78) Alkaline Phosphatase 65 U/L (45-117) Total Creatine Kinase 75 U/L (39-308) Creatine Kinase MB 2.7 ng/ml (0.5-3.6) Creatine Kinase MB Ratio 3.6 (0-3.0) Total Protein 6.9 gm/dl (6.4-8.2) Albumin 3.1 gm/dl (3.4-5.0) Bedside Troponin I < 0.030 ng/ml (0-0.045) Urine Color YELLOW Urine Appearance CLEAR (CLEAR) Urine pH 7.5 (4.5-7.5) Urine Specific [place] 1.014 (1.000-1.030) Urine Protein NEG (NEG) Urine Glucose (UA) NEG (NEG) Urine Ketones NEG (NEG) Urine Occult Blood NEG (NEG) Urine Nitrite NEG (NEG) Urine Bilirubin NEG (NEG) Urine Urobilinogen NEG (NEG) Urine Leukocyte Esterase NEG (NEG) Laboratory results per my review. Medications Administered Medications (Trade) Dose Ordered Sig/Sosa Route Start Time Stop Time Status Last Admin Dose Admin Sodium Chloride 250 ml @ 999 mls/hr Q16M STAT IV 06/17/17 12:57 06/17/17 13:12 DC 06/17/17 13:31 999 MLS/HR ECG Indication: altered mental status Rate (beats per minute): 64 Rhythm: normal sinus Findings: no acute ischemic change, no ectopy ED Course 1213: Past medical records reviewed. The patient was evaluated in room C4. A limited history and physical examination was performed. 1257: Ordered NSS 250 ml @ 999 mls/hr IV. 1445: I reevaluated the patient, and he was referred to [facility]. They are trying to track who is the patient's power of staff attorney. [facility] has a bed available for the patient. 1500: The patient was signed out to Dr. Rdz at change of shift. Medical Decision Differential diagnosis: Etiologies such as metabolic, infection, hypoglycemia, electrolyte abnormalities , cardiac sources, intracerebral event, toxicologic, neurologic, as well as others were entertained. This patient was evaluated and appeared to be in no significant distress. IV access was obtained and laboratory work was drawn. The patient was evaluated and found not to have any source of acute infection or metabolic abnormality. Head CT was performed and is negative. The patient was discussed with case management. He apparently has been referred to [facility] by his nursing facility. Currently documentation of a medical power of staff attorney is underway. The son believes he has documentation a home. The patient has been signed out to Dr. Rdz at the change of shift while details of his disposition are in question. Medication Reconcilliation Current Medication List: was personally reviewed by me Blood Pressure Screening Patient's blood pressure: Elevated blood pressure Blood pressure disposition: Elevated BP felt to be situational Impression Primary Impression: Agitation Additional Impression: Combative behavior Scribe Attestation The scribe's documentation has been prepared under my direction and personally reviewed by me in its entirety. I confirm that the note above accurately reflects all work, treatment, procedures, and medical decision making performed by me. Departure Information Dispostion Still a Patient (signed out to Dr. Rdz) Referrals Vinayak Turner M.D. (PCP) Patient Instructions My [facility] Problem Qualifiers
[2017-06-17] MEDS ORDERED: SODIUM CHLORIDE 0.9% 250ML 250 ML IV STA (12:57)
[2017-06-17 13:17] LABS: BASO % 0.5 %; BASO ABS # 0.03 K/uL (0-0.2); EOS % 3.3 %; EOS ABS # 0.21 K/uL (0-0.5); HEMATOCRIT 39.9 % (42-52); HEMOGLOBIN 13.6 g/dL (14.0-18.0); IG# 0.01 K/uL (0.00-0.02); LYMPH % 20.4 %; LYMPH ABS # 1.31 K/uL (1.2-3.4); MEAN CELL VOLUME 91.5 fL (80-100); MEAN CORPUSCULAR HEMOGLOBIN 31.2 pg (25-34); MEAN CORPUSCULAR HGB CONC 34.1 g/dl (32-36); MEAN PLATELET VOLUME 9.3 fL (7.4-10.4); MONO % 10.3 %; MONO ABS # 0.66 K/uL (0.11-0.59); NEUT % 65.3 %; NEUT ABS # 4.21 K/uL (1.4-6.5); PLATELET COUNT 240 K/uL (130-400); RED CELL DISTRIBUTION WIDTH CV 13.3 % (11.5-14.5); RED CELL DISTRIBUTION WIDTH SD 44.2 fL (36.4-46.3); WHITE BLOOD COUNT 6.43 K/uL (4.8-10.8)
--- NOTE | 2017-06-17 13:23 | DIAGNOSTIC IMAGING REPORT ---
CHEST ONE VIEW PORTABLE HISTORY: 81 years-old Male agitiation, AMS acute altered mental status COMPARISON: Chest radiographs 04/09/2017, 08/09/2016 05/20/2017, CT abdomen and pelvis 10/11/2012 TECHNIQUE: Portable AP view of the chest FINDINGS: Cardiac silhouette is mildly enlarged. Atherosclerosis of the aorta. No pneumothorax, pleural effusion or focal airspace consolidation. There are linear left perihilar and bibasilar subsegmental opacities suggesting areas of atelectasis/scarring. Subdiaphragmatic lucency noted on the right which appears similar on study dated 04/09/2017 and 05/20/2016 suggesting air within the colon. Degenerative changes are noted within the spine and shoulders. IMPRESSION: 1. Subsegmental atelectasis or scarring of the lung bases and left perihilar distribution. 2. Right subdiaphragmatic lucency appears similar to comparison study suggesting air within colon. Pneumoperitoneum is thought to be less likely. The above report was generated using voice recognition software. It may contain grammatical, syntax or spelling errors. Electronically signed by: Louie Blanco M.D. 06/17/2017 1:22 PM Dictated Date/Time: 06/17/2017 1:18 PM
[2017-06-17 13:42] LABS: ALBUMIN 3.1 gm/dl (3.4-5.0); ALT/SGPT 19 U/L (12-78); BLOOD UREA NITROGEN 16 mg/dl (7-18); CALCIUM 8.7 mg/dl (8.5-10.1); CARBON DIOXIDE 30 mmol/L (21-32); CREATININE 1.02 mg/dl (0.60-1.40); GLUCOSE 93 mg/dl (70-99); POTASSIUM 4.3 mmol/L (3.5-5.1); SODIUM 139 mmol/L (136-145)
[2017-06-17 13:59] LABS: ALKALINE PHOSPHATASE 65 U/L (45-117); AST/SGOT 19 U/L (15-37); CKMB 2.7 ng/ml (0.5-3.6); TOTAL PROTEIN 6.9 gm/dl (6.4-8.2)
--- NOTE | 2017-06-17 15:02 | DIAGNOSTIC IMAGING REPORT ---
HEAD WITHOUT CONTRAST (CT) CLINICAL HISTORY: 81 years-old Male with AMS. Acute altered mental status TECHNIQUE: Multiple axial CT images of the head were obtained without contrast. A dose lowering technique was utilized adhering to the principles of ALARA. CT DOSE: 776.86 mGycm COMPARISON: CT head 08/09/2016, MRI brain 08/10/2016. FINDINGS: No acute intracranial hemorrhage, midline shift, intracranial mass, hydrocephalus, territorial ischemia or abnormal extra-axial collection. Mild to moderate atrophy. Patchy areas of white matter low attenuation are again seen within the subcortical and periventricular distributions compatible with chronic microvascular ischemic changes. The calvarium is intact. The paranasal sinuses, mastoid air cells, and middle ear cavities are clear. IMPRESSION: No acute intracranial abnormality. The above report was generated using voice recognition software. It may contain grammatical, syntax or spelling errors. Electronically signed by: Louie Blanco M.D. 06/17/2017 3:01 PM Dictated Date/Time: 06/17/2017 2:58 PM
--- NOTE | 2017-06-17 17:27 | EMERGENCY ROOM VISIT NOTE ---
ED Visit Note First contact with patient: 17:24 I assumed care at the change of shift. The patient was awaiting confirmation of acceptance at [facility]. The patient has officially been accepted. The paperwork for secure transport was completed. The patient was discharged to their care.
[2017-06-17 18:07] VITALS: BP 172/88; PULSE 67; TEMP 36.8; O2SAT 92
== END 2017-06-17 18:07 ==
LOC: EDBD 11:55 → C.EDC 11:57
DX: R45.1 Restlessness and agitation (principal); R45.6 Violent behavior; F03.90 Unspecified dementia, unspecified severity, without behavioral disturbance, psychotic disturbance, mood disturbance, and anxiety; J45.909 Unspecified asthma, uncomplicated; I10 Essential (primary) hypertension; K42.9 Umbilical hernia without obstruction or gangrene; Z90.5 Acquired absence of kidney; H26.9 Unspecified cataract; Z85.528 Personal history of other malignant neoplasm of kidney; Z85.46 Personal history of malignant neoplasm of prostate

== ENCOUNTER 2017-06-29 11:19 | Emergency (ER) | payer OTHER, MEDICARE ==
[~2017-06-29] VITALS: Ht 182.9 cm; Wt 72.0 kg
[2017-06-29 11:20] VITALS: Ht 182.9 cm; Wt 72.0 kg
--- NOTE | 2017-06-29 12:36 | DIAGNOSTIC IMAGING REPORT ---
CHEST ONE VIEW PORTABLE CLINICAL HISTORY: Weakness. COMPARISON STUDY: Chest radiograph June 17, 2017. FINDINGS: Lucency under the right hemidiaphragm likely reflects colonic bowel gas. This has been shown on several previous exams. Linear left basilar opacity is suggestive of atelectasis. There is no evidence for pulmonary edema. Cardiomediastinal silhouette is normal. Apparent right infrahilar opacity likely reflects normal vessels or atelectasis. IMPRESSION: Diminished lung volumes with bibasilar opacities which favor atelectasis. Right basilar pneumonia could appear similar although is considered less likely. Electronically signed by: Jeremias Knowles M.D. 06/29/2017 12:35 PM Dictated Date/Time: 06/29/2017 12:32 PM
[2017-06-29] MEDS ORDERED: NUTR-977 PO (13:22)
[2017-06-29 13:23] LABS: BASO % 0.4 %; BASO ABS # 0.03 K/uL (0-0.2); EOS % 3.2 %; EOS ABS # 0.24 K/uL (0-0.5); HEMATOCRIT 40.4 % (42-52); HEMOGLOBIN 13.8 g/dL (14.0-18.0); IG# 0.03 K/uL (0.00-0.02); LYMPH ABS # 1.44 K/uL (1.2-3.4); MEAN CELL VOLUME 91.8 fL (80-100); MEAN CORPUSCULAR HEMOGLOBIN 31.4 pg (25-34); MEAN CORPUSCULAR HGB CONC 34.2 g/dl (32-36); MEAN PLATELET VOLUME 9.5 fL (7.4-10.4); MONO % 8.9 %; MONO ABS # 0.67 K/uL (0.11-0.59); NEUT % 68.1 %; NEUT ABS # 5.15 K/uL (1.4-6.5); PLATELET COUNT 255 K/uL (130-400); RED CELL DISTRIBUTION WIDTH CV 13.2 % (11.5-14.5); RED CELL DISTRIBUTION WIDTH SD 44.3 fL (36.4-46.3); WHITE BLOOD COUNT 7.56 K/uL (4.8-10.8)
[2017-06-29 13:32] LABS: PTT PATIENT 28.5 SECONDS (21.0-31.0)
--- NOTE | 2017-06-29 13:33 | DIAGNOSTIC IMAGING REPORT ---
CT OF THE HEAD WITHOUT CONTRAST CLINICAL HISTORY: Weakness. COMPARISON STUDY: Head CT June 17, 2017. CT DOSE: 614.27 mGy.cm TECHNIQUE: Helical axial images of the head were obtained without IV contrast. Automated exposure control was utilized for the study. A dose lowering technique was utilized adhering to the principles of ALARA. FINDINGS: No acute intracranial hemorrhage, midline shift or mass effect is present. Ventricular system is stable. The basilar cisterns are patent. There are no extra-axial collections. White matter hypodensities are unchanged. These favor small vessel disease. There are no findings to suggest acute dural sinus thrombosis or acute territorial infarct. There are no significant calvarial abnormalities. Visualized portions of the sinuses and mastoid air cells are clear. IMPRESSION: No acute intracranial findings. Electronically signed by: Jeremias Knowles M.D. 06/29/2017 1:32 PM Dictated Date/Time: 06/29/2017 1:30 PM
[2017-06-29 13:45] LABS: ALBUMIN 3.4 gm/dl (3.4-5.0); ALT/SGPT 20 U/L (12-78); AST/SGOT 19 U/L (15-37); BLOOD UREA NITROGEN 21 mg/dl (7-18); CALCIUM 8.6 mg/dl (8.5-10.1); CARBON DIOXIDE 29 mmol/L (21-32); CREATININE 1.03 mg/dl (0.60-1.40); GLUCOSE 87 mg/dl (70-99); LIPASE 205 U/L (73-393); SODIUM 137 mmol/L (136-145)
--- NOTE | 2017-06-29 13:47 | DIAGNOSTIC IMAGING REPORT ---
CT OF THE ABDOMEN AND PELVIS WITHOUT CONTRAST CLINICAL HISTORY: Altered mental status. COMPARISON STUDY: CT of the abdomen and pelvis October 11, 2012 and renal ultrasound January 02, 2016. TECHNIQUE: Axial images of the abdomen and pelvis were obtained without IV contrast. Images were reviewed in the axial, sagittal, and coronal planes. A dose lowering technique was utilized adhering to the principles of ALARA. FINDINGS: A 1.2 cm left lower lobe pulmonary nodule shown on image 13 of 456 has increased in size since CT of August 23, 2010. Linear bibasilar opacities suggest atelectasis. No pneumatosis, free air or portal venous gas is present. Evaluation of the abdomen and pelvis is suboptimal on this unenhanced examination. There are suspected gallstones within the gallbladder without evidence for acute cholecystitis. Multiple water attenuation hepatic lesions were present on prior exams and are consistent with cysts. The left kidney is surgically absent. The nephrectomy bed is unremarkable. Left adrenal nodularity is unchanged. The spleen and pancreas are unremarkable. A few right-sided parapelvic cysts are again noted. There is no evidence for a bowel obstruction. There is a moderate amount of stool within the rectum with minimal perirectal infiltration. Postoperative findings consistent with prostatectomy are noted. There is evidence for a pelvic lymph node dissection. There are no enlarged lymph nodes. There are no suspicious osseous lesions. A fat-containing right inguinal hernia is present. There is colonic diverticulosis without evidence for acute diverticulitis. IMPRESSION: 1. No acute process within the abdomen or pelvis on unenhanced exam. 2. Moderate amount stool within the rectum. No bowel obstruction. 3. Extensive colonic diverticulosis without evidence for acute diverticulitis. 4. 1.2 cm left lower lobe nodule which has increased in size. This is indeterminate and may reflect a slow-growing neoplasm. A follow-up nonemergent chest CT is recommended. 5. Cholelithiasis without evidence for acute cholecystitis. Electronically signed by: Jeremias Knowles M.D. 06/29/2017 1:45 PM Dictated Date/Time: 06/29/2017 1:35 PM
[2017-06-29 13:54] LABS: ALKALINE PHOSPHATASE 66 U/L (45-117); CKMB 2.5 ng/ml (0.5-3.6); TOTAL PROTEIN 7.3 gm/dl (6.4-8.2)
[2017-06-29] MEDS ORDERED: OLANZAPINE 5 MG TAB PO STA (18:01)
[2017-06-29] MEDS ORDERED: AMIODARONE 200 MG TAB PO ONE (18:15)
[2017-06-29 18:18] VITALS: TEMP 36.6
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
[2017-06-29 21:21] VITALS: BP 149/89; PULSE 71; O2SAT 97
== END 2017-06-29 21:33 ==
LOC: EDBD 11:19 → C.EDA 11:20
DX: F03.91 Unspecified dementia, unspecified severity, with behavioral disturbance (principal); J45.909 Unspecified asthma, uncomplicated; H26.9 Unspecified cataract; I10 Essential (primary) hypertension; Z85.46 Personal history of malignant neoplasm of prostate; Z85.528 Personal history of other malignant neoplasm of kidney; Z90.5 Acquired absence of kidney; Z90.49 Acquired absence of other specified parts of digestive tract; Z79.899 Other long term (current) drug therapy

== ENCOUNTER 2017-09-16 10:25 | Emergency (ER) | payer OTHER, MEDICARE ==
[~2017-09-16] VITALS: Ht 172.7 cm; Wt 75.0 kg
[~2017-09-16 10:25] MED LIST changes: +NUTR-977 PO
[2017-09-16 10:35] VITALS: PULSE 75; TEMP 36.5; O2SAT 98; Ht 172.7 cm; Wt 75.0 kg
[2017-09-16] MEDS ORDERED: SERT50TA PO (12:25)
[2017-09-16] MEDS ORDERED: LORA-741 PO (12:25)
--- NOTE | 2017-09-16 12:45 | DIAGNOSTIC IMAGING REPORT ---
CT HEAD WITHOUT CONTRAST (CT) CLINICAL HISTORY: Head trauma. Head pain. History of Alzheimer's disease. COMPARISON STUDY: 06/29/2017 TECHNIQUE: Axial CT of the brain is performed from the vertex to the skull base. IV contrast was not administered for this examination. A dose lowering technique was utilized adhering to the principles of ALARA. CT DOSE: 2436.51 mGycm FINDINGS: The examination is moderately compromised due to motion artifact. No intra or extra-axial mass lesions are visualized. There is no CT evidence of acute cortical infarction. There is no evidence of midline shift. There is no acute hemorrhage. No calvarial fractures are visualized. There are patchy white matter hypodensities likely on a small vessel basis. There is no evidence of pathologic ventricular dilatation. There is no evidence of acute sinusitis IMPRESSION: 1. The study is compromised due to patient motion artifact 2. No acute intracranial findings Electronically signed by: Doug Kwok M.D. 09/16/2017 12:44 PM Dictated Date/Time: 09/16/2017 12:43 PM
--- NOTE | 2017-09-16 13:57 | EMERGENCY ROOM VISIT NOTE ---
History Report prepared by Joby: Shane Hua Under the Supervision of: Dr. Lance Burgess M.D. First contact with patient: 11:47 Chief Complaint: FALL Stated Complaint: FALL History of Present Illness The patient is a 81 year old male who presents to the Emergency Room by EMS for evaluation s/p fall occurring shortly prior to arrival. The patient has a history of Alzheimer's. He is a resident at [facility]. He is reported to have fallen in the shower and hit the left side of his head today. HPI limited secondary to dementia. Source of History: nursing staff History Limited By: dementia Onset: Shortly prior to arrival Quality: other (fall) Timing: other (episode) Review of Systems ROS limited secondary to dementia. Past Medical & Surgical Medical Problems: (1) ACQRD ABSENCE OF KIDNEY (2) Asthma (3) CATARACT NOS (4) Cellulitis of left arm (5) Dementia (6) Dementia (7) HX-PROSTATIC MALIGNANCY (8) Hypertension (9) kidney cancer (10) UMBILICAL HERNIA (11) unilateral nephrectomy Surgical Problems: (1) History of cholecystectomy (2) History of nephrectomy Old medical records were reviewed. Nurse's notes were reviewed and I agree with. Family History FH: cancer FHx: cancer Kidney disease or stones Social History Smoking Status: Never Smoker Alcohol Use: occasionally Drug Use: none Marital Status: Housing Status: lives with significant other Occupation Status: retired Current/Historical Medications Scheduled Amiodarone Hcl (Cordarone), 200 MG PO QPM Enteral Nutrition Formula (Ensure Plus Vanilla), 1 CAN PO BID Magnesium Oxide (Mag-Ox), 400 MG PO DAILY Metoprolol Succinate (Metoprolol Succinate ER), 25 MG PO DAILY Olanzapine (Olanzapine), 5 MG PO QPM Sertraline (Zoloft), 50 MG PO DAILY Scheduled PRN Acetaminophen (Tylenol), 1,000 MG PO Q8 PRN for Pain Lorazepam (Ativan), 0.5 MG PO BID PRN for Anxiety Allergies Coded Allergies: Shellfish (Verified Allergy, Intermediate, GI DISTRESS, RASH, 09/16/17) Physical Exam Vital Signs Date Time Temp Pulse Resp B/P (MAP) Pulse Ox O2 Delivery O2 Flow Rate FiO2 09/16/17 14:30 152/77 09/16/17 12:52 169/88 09/16/17 10:35 36.5 75 16 115/67 98 Room Air Physical Exam General: Non-ill appearing demented older male in no acute distress. Sleepy but arousable. HEENT: Normal cephalic atraumatic. Pupils are equal round and reactive to light. Extraocular movements are intact. Oropharynx is pink with moist mucous membranes. No swelling of the mouth lips or tongue. Neck: Supple with a midline trachea. No meningeal signs or stiffness, no JVD or bruits. No Stridor. Chest: Clear to auscultation bilaterally. No wheezes or rhonchi. No increased work of breathing. Heart: regular rate and rhythm. Abdomen: Soft nontender, nondistended without rebound guarding or rigidity. Extremities: No cyanosis clubbing or edema. No calf tenderness or assymetry Spine/Back. Non tender to palpation. No CVA tenderness Skin: Good turgor without rashes. Neurologic exam: Moves all extremities on exam. Baseline dementia. Medical Decision & Procedures ER Provider Diagnostic Interpretation: Radiology results as stated below per my review and radiologist interpretation: CT HEAD WITHOUT CONTRAST (CT) FINDINGS: The examination is moderately compromised due to motion artifact. No intra or extra-axial mass lesions are visualized. There is no CT evidence of acute cortical infarction. There is no evidence of midline shift. There is no acute hemorrhage. No calvarial fractures are visualized. There are patchy white matter hypodensities likely on a small vessel basis. There is no evidence of pathologic ventricular dilatation. There is no evidence of acute sinusitis IMPRESSION: 1. The study is compromised due to patient motion artifact 2. No acute intracranial findings Electronically signed by: Doug Kwok M.D. 09/16/2017 12:44 PM ED Course 1205: Past medical records reviewed. The patient was evaluated in room A9A, and a complete history and physical examination were performed. 1245: I spoke with the patient's son. He agrees with the treatment plan. 1350: Upon reevaluation, the patient is resting. I discussed the results and treatment plan with his son. He verbalized agreement of the treatment plan. The patient was discharged home. Medical Decision Differentials include, but are not limited to; fall, ICH, dementia, and electrolyte or metabolic abnormality. This patient comes in as described above. He was placed in room A9. He has severe dementia and is on the dementia unit at [facility]. He apparently fell and hit his head. His son is at the bedside and apparently patient and his is at his normal baseline dementia. There are no other obvious injuries. CAT scan of his head is unremarkable. He has stable vital signs. I do feel that he can go back to the long term, son agrees. He was discharged back to the long term. Medication Reconcilliation Current Medication List: was personally reviewed by me Blood Pressure Screening Patient's blood pressure: Normal blood pressure Blood pressure disposition: Did not require urgent referral Impression Primary Impression: Closed head injury Additional Impression: Concussion Scribe Attestation The scribe's documentation has been prepared under my direction and personally reviewed by me in its entirety. I confirm that the note above accurately reflects all work, treatment, procedures, and medical decision making performed by me. Departure Information Dispostion Home / Self-Care Referrals Vinayak Turner M.D. (PCP) Forms HOME CARE DOCUMENTATION FORM, IMPORTANT VISIT INFORMATION Patient Instructions My [facility] Additional Instructions Rest Return if: worsening of symptoms, not acting like self, any new problems or concerns Out of bed with assistance only Problem Qualifiers
[2017-09-16 14:30] VITALS: BP 152/77
== END 2017-09-16 14:31 | disposition home or self-care (01) ==
LOC: EDBD 10:25 → C.EDA 10:26
DX: S06.0X0A Concussion without loss of consciousness, initial encounter (principal); W18.2XXA Fall in (into) shower or empty bathtub, initial encounter; Y92.121 Bathroom in nursing home as the place of occurrence of the external cause; G30.9 Alzheimer's disease, unspecified; I10 Essential (primary) hypertension; Z85.46 Personal history of malignant neoplasm of prostate; Z85.528 Personal history of other malignant neoplasm of kidney; Z90.5 Acquired absence of kidney

== ENCOUNTER 2017-09-20 15:16 | Inpatient (IN) | payer OTHER, MEDICARE ==
[~2017-09-20] VITALS: Ht 165.1 cm; Wt 74.1 kg
[~2017-09-20 15:16] MED LIST changes: +LORA-741 PO; +SERT50TA PO
--- NOTE | 2017-09-20 15:53 | DIAGNOSTIC IMAGING REPORT ---
CHEST ONE VIEW PORTABLE CLINICAL HISTORY: 81 years-old Male presenting with cough, fever. TECHNIQUE: Portable upright AP view of the chest was obtained. COMPARISON: 06/29/2017. FINDINGS: The patient is [place] rotated. Atherosclerosis of the aortic arch. Cardiac silhouette normal in size. Mildly low lung volumes with elevation of the bilateral hemidiaphragms. Bronchial wall thickening evident. Right basilar opacities increased from prior. Small right pleural effusion. Apparent gas below the right hemidiaphragm is unchanged since the prior exam. Degenerative changes of the thoracic spine. IMPRESSION: 1. Mildly low lung volumes with increased right basilar opacity. Infection or aspiration cannot be excluded. 2. Small parapneumonic effusion. 3. Apparent gas beneath the right hemidiaphragm is unchanged in appearance since the prior exam and may represent colonic gas in the setting of colonic interposition. Electronically signed by: Narendra Lawrence M.D. 09/20/2017 3:52 PM Dictated Date/Time: 09/20/2017 3:49 PM
[2017-09-20] MEDS ORDERED: TRAZ50TA35 PO (16:18)
[2017-09-20 16:33] LABS: BASO % 0.2 %; BASO ABS # 0.02 K/uL (0-0.2); EOS % 0.6 %; EOS ABS # 0.07 K/uL (0-0.5); HEMATOCRIT 38.5 % (42-52); HEMOGLOBIN 12.7 g/dL (14.0-18.0); IG# 0.04 K/uL (0.00-0.02); LYMPH % 11.8 %; LYMPH ABS # 1.39 K/uL (1.2-3.4); MEAN CELL VOLUME 92.3 fL (80-100); MEAN CORPUSCULAR HEMOGLOBIN 30.5 pg (25-34); MEAN PLATELET VOLUME 9.2 fL (7.4-10.4); MONO % 9.2 %; MONO ABS # 1.08 K/uL (0.11-0.59); NEUT % 77.9 %; NEUT ABS # 9.17 K/uL (1.4-6.5); PLATELET COUNT 253 K/uL (130-400); RED CELL DISTRIBUTION WIDTH CV 14.1 % (11.5-14.5); RED CELL DISTRIBUTION WIDTH SD 48.1 fL (36.4-46.3); WHITE BLOOD COUNT 11.77 K/uL (4.8-10.8)
[2017-09-20 16:53] LABS: ALBUMIN 2.9 gm/dl (3.4-5.0); CALCIUM 8.7 mg/dl (8.5-10.1); CREATININE 1.25 mg/dl (0.60-1.40)
--- NOTE | 2017-09-20 16:53 | EMERGENCY ROOM VISIT NOTE ---
ED Visit Note First contact with patient: 15:32 Patient was seen by our PA/TOBACCO SWEEPER. I was involved in the patient's care and did evaluate the patient myself. I was involved in the care throughout the ER stay. The patient presents with a dry cough, a change in mental status. Workup here demonstrates pneumonia. He does have a leukocytosis. He has a very low-grade temperature. A hospital stay is warranted. Antibiotics have been administered.
--- NOTE | 2017-09-20 16:58 | DIAGNOSTIC IMAGING REPORT ---
HEAD WITHOUT CONTRAST (CT) CT DOSE: 614.27 mGy.cm HISTORY: Mental status change ams TECHNIQUE: Multiaxial CT images of the head were performed without the use of intravenous contrast. A dose lowering technique was utilized adhering to the principles of ALARA. Comparison: 09/16/2017 Findings: The paranasal sinuses and mastoid air cells are clear. The calvarium and skull base are intact. The ventricles and sulci are within normal limits. There is no mass, hematoma, midline shift, or acute infarct. Mild age-related chronic small vessel change Impression: No acute intracranial abnormality. Mild age-related chronic small vessel change. The above report was generated using voice recognition software. It may contain grammatical, syntax or spelling errors. Electronically signed by: Arnaud Rosa M.D. 09/20/2017 4:57 PM Dictated Date/Time: 09/20/2017 4:55 PM
[2017-09-20] MEDS ORDERED: SODIUM CHLORIDE 0.9% 500ML 500 ML IV STA (16:59)
[2017-09-20] MEDS ORDERED: PIPERACILLIN/TAZOBACTAM 4.5 GM/100ML D5W IV STA (17:00)
[2017-09-20 17:10] LABS: INFLUENZA B ANTIGEN Neg for Influ B (NEG)
[2017-09-20] MEDS ORDERED: ACETAMINOPHEN 325 MG TAB PO PRN (17:45)
[2017-09-20] MEDS ORDERED: LORAZEPAM 0.5 MG TAB PO PRN (17:45)
[2017-09-20] MEDS ORDERED: PIPERACILL/TAZOBAC CONSULT ACTIVE PRN (17:45)
--- NOTE | 2017-09-20 18:06 | History and Physical ---
History & Physical Date & Time of Service: Sep 20, 2017 at 17:41 Chief Complaint: General Decline Primary Care Physician: Vinayak Turner M.D. History of Present Illness Source: clinic records History obtained from ER staff and family. Patient is an 81yo C male with history of dementia. He was brought to the hospital for worsening mental status. Patient is not answering questions and not following commands. Family reports cough and fever. He as a possible RLL infiltrate noted on CXR. ER Course:SHANELL Sebastian Past Medical/Surgical History Medical Problems: 1. Dementia 2. Hypertension 3. Renal cell carcinoma s/p left nephrectomy 4. Prostate CA 5. Umbilical hernia 6. Paroxysmal atrial fibrillation 7. Bladder cancer Surgical Problems: (1) History of cholecystectomy (2) History of nephrectomy Family History FH: cancer FHx: cancer Kidney disease or stones Social History Smoking Status: Unknown if Ever Smoked Drug Use: none Marital Status: Housing status: lives with family Occupational Status: retired Immunizations History of Influenza Vaccine: Unknown History of Tetanus Vaccine?: Unknown History of Pneumococcal: Unknown History of Hepatitis B Vaccine: Unknown Allergies Coded Allergies: Shellfish (Verified Allergy, Intermediate, GI DISTRESS, RASH, 09/20/17) Home Medications Scheduled Amiodarone Hcl (Cordarone), 200 MG PO QPM Enteral Nutrition Formula (Ensure Plus Vanilla), 1 CAN PO BID Magnesium Oxide (Mag-Ox), 400 MG PO DAILY Metoprolol Succinate (Metoprolol Succinate ER), 25 MG PO DAILY Olanzapine (Olanzapine), 5 MG PO QPM Sertraline (Zoloft), 50 MG PO DAILY Trazodone Hcl (Trazodone), 50 MG PO HS Scheduled PRN Acetaminophen (Tylenol), 1,000 MG PO Q8 PRN for Pain Lorazepam (Ativan), 0.5 MG PO BID PRN for Anxiety Review of Systems Review of systems unable to obtain due to altered mental status Physical Exam Vital Signs Date Time Temp Pulse Resp B/P (MAP) Pulse Ox O2 Delivery O2 Flow Rate FiO2 09/20/17 16:39 66 09/20/17 16:19 74 12 125/72 94 Room Air 09/20/17 15:37 92 Room Air 09/20/17 15:30 37.8 64 16 135/67 92 Room Air General: patient in bed, NAD, does not follow commands, does not answer questions Skin: no rashes, bruises or lesions HEENT: NC/AT, PERRL, anicteric sclera, conjunctiva without injection, dry mucus membranes, neck supple, no JVD Heart: +S1/S2, regular, no m/r/g Lungs: CTA with diminished breath sounds in the bases, poor effort Abd: +BS, soft, NT/ND Ext: warm, well perfused, no edema Neuro: patient moving all extremities spontaneously, nonverbal, no facial droop , not following commands. Diagnostics Laboratory Results Results Past 24 Hours Test 09/20/17 15:50 09/20/17 16:00 Range/Units Influenza Type A Antigen Neg for Influ A NEG Influenza Type B Antigen Neg for Influ B NEG White Blood Count 11.77 4.8-10.8 K/uL Red Blood Count 4.17 4.7-6.1 M/uL Hemoglobin 12.7 14.0-18.0 g/dL Hematocrit 38.5 42-52 % Mean Corpuscular Volume 92.3 80-100 fL Mean Corpuscular Hemoglobin 30.5 25-34 pg Mean Corpuscular Hemoglobin Concent 33.0 32-36 g/dl Platelet Count 253 130-400 K/uL Mean Platelet Volume 9.2 7.4-10.4 fL Neutrophils (%) (Auto) 77.9 % Lymphocytes (%) (Auto) 11.8 % Monocytes (%) (Auto) 9.2 % Eosinophils (%) (Auto) 0.6 % Basophils (%) (Auto) 0.2 % Neutrophils # (Auto) 9.17 1.4-6.5 K/uL Lymphocytes # (Auto) 1.39 1.2-3.4 K/uL Monocytes # (Auto) 1.08 0.11-0.59 K/uL Eosinophils # (Auto) 0.07 0-0.5 K/uL Basophils # (Auto) 0.02 0-0.2 K/uL RDW Standard Deviation 48.1 36.4-46.3 fL RDW Coefficient of Variation 14.1 11.5-14.5 % Immature Granulocyte % (Auto) 0.3 % Immature Granulocyte # (Auto) 0.04 0.00-0.02 K/uL Sodium Level 143 136-145 mmol/L Potassium Level 4.0 3.5-5.1 mmol/L Chloride Level 109 98-107 mmol/L Carbon Dioxide Level 31 21-32 mmol/L Anion Gap 3.0 3-11 mmol/L Blood Urea Nitrogen 23 7-18 mg/dl Creatinine 1.25 0.60-1.40 mg/dl Est Creatinine Clear Calc Drug Dose 48.6 ml/min Estimated GFR () 62.2 Estimated GFR (Non- 53.7 BUN/Creatinine Ratio 18.3 10-20 Random Glucose 95 70-99 mg/dl Calcium Level 8.7 8.5-10.1 mg/dl Magnesium Level 2.1 1.8-2.4 mg/dl Total Bilirubin 0.7 0.2-1 mg/dl Aspartate Amino Transf (AST/SGOT) 46 15-37 U/L Alanine Aminotransferase (ALT/SGPT) 26 12-78 U/L Alkaline Phosphatase 56 45-117 U/L Total Protein 7.0 6.4-8.2 gm/dl Albumin 2.9 3.4-5.0 gm/dl Globulin 4.1 2.5-4.0 gm/dl Albumin/Globulin Ratio 0.7 0.9-2 Microbiology Results 09/20/17 Blood Culture, Ordered Pending 09/20/17 Blood Culture, Ordered Pending Diagnostic Radiology CHEST ONE VIEW PORTABLE CLINICAL HISTORY: 81 years-old Male presenting with cough, fever. TECHNIQUE: Portable upright AP view of the chest was obtained. COMPARISON: 06/29/2017. FINDINGS: The patient is STEPHAN rotated. Atherosclerosis of the aortic arch. Cardiac silhouette normal in size. Mildly low lung volumes with elevation of the bilateral hemidiaphragms. Bronchial wall thickening evident. Right basilar opacities increased from prior. Small right pleural effusion. Apparent gas below the right hemidiaphragm is unchanged since the prior exam. Degenerative changes of the thoracic spine. IMPRESSION: 1. Mildly low lung volumes with increased right basilar opacity. Infection or aspiration cannot be excluded. 2. Small parapneumonic effusion. 3. Apparent gas beneath the right hemidiaphragm is unchanged in appearance since the prior exam and may represent colonic gas in the setting of colonic interposition. Electronically signed by: Narendra Lawrence M.D. 09/20/2017 3:52 PM Dictated Date/Time: 09/20/2017 3:49 PM HEAD WITHOUT CONTRAST (CT) CT DOSE: 614.27 mGy.cm HISTORY: Mental status change ams TECHNIQUE: Multiaxial CT images of the head were performed without the use of intravenous contrast. A dose lowering technique was utilized adhering to the principles of ALARA. Comparison: 09/16/2017 Findings: The paranasal sinuses and mastoid air cells are clear. The calvarium and skull base are intact. The ventricles and sulci are within normal limits. There is no mass, hematoma, midline shift, or acute infarct. Mild age-related chronic small vessel change Impression: No acute intracranial abnormality. Mild age-related chronic small vessel change. The above report was generated using voice recognition software. It may contain grammatical, syntax or spelling errors. Electronically signed by: Arnaud Rosa M.D. 09/20/2017 4:57 PM EKG The study demonstrates normal sinus rhythm at 64bpm, normal axis and intervals, no ST-T wave changes concerning for ischemia Impression Assessment and Plan 81yo male with history of dementia, HTN, PAF presenting with altered mental status and possible PNA 1. AMS - patient is not answering questions at this time, not following commands. Appears to be delirious, most likely secondary to underlying infection. CT head unremarkable. Labs with mildly elevated BUN and leukocytosis. -will check UA and culture -Blood cultures sent in ER, will follow -Check Utox, TSH -Hold sedating medications - Trazodone -Frequent orientation 2. Pneumonia - possible aspiration -Zosyn 3.375gm IV q 6 -Azithromycin 500mg IV daily -Repeat CXR in AM -Blood cultures sent and pending -Aspiration precautions 3. Hypertension -patient presently normotensive. -Continue home Metoprolol 4. Dementia - -Continue Olanzapine -Continue Sertraline -Hold Ativan in setting of AMS 5. PAF - patient presently in NSR, no anticoagulation on medication list -Continue Amiodarone at home dose 6. F/E/N - NSS at 125mL/hr x 2 liters, monitor electrolytes and replete as needed, NPO for now until mental status improves, patient may need swallow evaluation if aspiration witnessed 7. Ppx - Lovenox 8. Code - Full 9. Dispo - admit to med surg, anticipate >2 midnight stay Resuscitation Status VTE Prophylaxis Will order VTE Prophylaxis: Yes
[2017-09-20 18:42] LABS: PHOSPHORUS 2.6 mg/dl (2.5-4.9)
[2017-09-20] MEDS ORDERED: ACETAMINOPHEN IV 1,000 MG in EMPTY BAG 0 ML IV SCH (19:00)
[2017-09-20 19:45] VITALS: BP 136/71; PULSE 61; TEMP 36.9; O2SAT 95; BMI 27.2
[2017-09-20] MEDS: AMIODARONE 200 MG TAB PO SCH (20:45)
[2017-09-20] MEDS: OLANZAPINE 5 MG TAB PO SCH (20:45)
[2017-09-20] MEDS ORDERED: ACETAMINOPHEN IV 1000MG/100ML IV ONE (20:45)
[2017-09-20] MEDS: SODIUM CHLORIDE 0.9% 1000ML 1,000 ML IV SCH (21:18)
[2017-09-20] MEDS: AZITHROMYCIN IV 500 MG in DEXTROSE 5% 250ML 250 ML IV SCH (21:18)
[2017-09-20] MEDS: PIPERACILL/TAZOBAC IV 3.375 GM in DEXTROSE 5% 100ML 100 ML IV SCH (23:29)
[2017-09-20] MEDS: ENOXAPARIN 40 MG/0.4 ML SYR SQ SCH (23:29)
[2017-09-20 23:41] VITALS: BP 109/62; PULSE 55; TEMP 35.9; O2SAT 94
[2017-09-21] MEDS ORDERED: PNEUMOCOCCAL POLYSACCHARIDES 25 MCG/0.5 ML VIAL/SYR IM. ONE (00:30)
[2017-09-21] MEDS ORDERED: PNEUMOCOCCAL ADMINISTRATION CHARGE ONE (00:30)
--- NOTE | 2017-09-21 01:05 | EMERGENCY ROOM VISIT NOTE ---
History First contact with patient: 15:32 Chief Complaint: OTHER COMPLAINT Stated Complaint: PNEUMONIA History of Present Illness The patient is a 81 year old male who presents to the Emergency Room via EMS for evaluation of decline in mental status. Per EMS, nursing staff at the patient's assisted living facility were concerned that he was less alert than usual. The patient has baseline dementia, however over the past few days he has not been answering questions that he normally answers. They also report that the patient has had a cough which has been productive of a greenish mucus. History is otherwise limited secondary to patient's dementia and altered mental status. Review of Systems A complete 10 point review of systems was reviewed with the patient with pertinent positives and negatives as per history of present illness. All else were negative. Past Medical/Surgical History Medical Problems: (1) ACQRD ABSENCE OF KIDNEY (2) Asthma (3) CATARACT NOS (4) Cellulitis of left arm (5) Dementia (6) Dementia (7) HX-PROSTATIC MALIGNANCY (8) Hypertension (9) kidney cancer (10) Pneumonia (11) UMBILICAL HERNIA (12) unilateral nephrectomy Surgical Problems: (1) History of cholecystectomy (2) History of nephrectomy Family History FH: cancer FHx: cancer Kidney disease or stones Social History Smoking Status: Never Smoker Alcohol Use: occasionally Drug Use: none Marital Status: Housing Status: lives with significant other Occupation Status: retired Current/Historical Medications Scheduled Amiodarone Hcl (Cordarone), 200 MG PO QPM Enteral Nutrition Formula (Ensure Plus Vanilla), 1 CAN PO BID Magnesium Oxide (Mag-Ox), 400 MG PO DAILY Metoprolol Succinate (Metoprolol Succinate ER), 25 MG PO DAILY Olanzapine (Olanzapine), 5 MG PO QPM Sertraline (Zoloft), 50 MG PO DAILY Trazodone Hcl (Trazodone), 50 MG PO HS Scheduled PRN Acetaminophen (Tylenol), 1,000 MG PO Q8 PRN for Pain Lorazepam (Ativan), 0.5 MG PO BID PRN for Anxiety Physical Exam Vital Signs Date Time Temp Pulse Resp B/P (MAP) Pulse Ox O2 Delivery O2 Flow Rate FiO2 09/20/17 16:39 66 09/20/17 16:19 74 12 125/72 94 Room Air 09/20/17 15:37 92 Room Air 09/20/17 15:30 37.8 64 16 135/67 92 Room Air Physical Exam VITALS: Vitals are noted on the nurse's note and reviewed by myself. Vital signs stable. GENERAL: This is an 81-year-old male, in no acute distress, nondiaphoretic, well -developed well-nourished. SKIN: The skin was without rashes. EARS: External auditory canals clear, tympanic membranes pearly lugo without erythema or effusion bilaterally. EYES: Pupils equal round and reactive to light and accommodation. Discharge from bilateral eyes. MOUTH: Mucous membranes slightly dry. NECK: Supple without nuchal rigidity. No lymphadenopathy. No thyromegaly. Cervical spine is nontender. No JVD. HEART: Regular rate and rhythm without murmurs gallops or rubs. LUNGS: Coarse breath sounds throughout. No retractions or accessory muscle use. ABDOMEN: Positive bowel sounds x 4. Soft, no apparent tenderness to palpation. NEURO: Patient responds to verbal stimulation at times. Medical Decision & Procedures ER Provider Diagnostic Interpretation: HEAD WITHOUT CONTRAST (CT) Impression: No acute intracranial abnormality. Mild age-related chronic small vessel change. CHEST ONE VIEW PORTABLE FINDINGS: The patient is BULGARIAN rotated. Atherosclerosis of the aortic arch. Cardiac silhouette normal in size. Mildly low lung volumes with elevation of the bilateral hemidiaphragms. Bronchial wall thickening evident. Right basilar opacities increased from prior. Small right pleural effusion. Apparent gas below the right hemidiaphragm is unchanged since the prior exam. Degenerative changes of the thoracic spine. IMPRESSION: 1. Mildly low lung volumes with increased right basilar opacity. Infection or aspiration cannot be excluded. 2. Small parapneumonic effusion. 3. Apparent gas beneath the right hemidiaphragm is unchanged in appearance since the prior exam and may represent colonic gas in the setting of colonic interposition. Laboratory Results 09/20/17 16:00 Red Blood Count 4.17, Mean Corpuscular Volume 92.3, Mean Corpuscular Hemoglobin 30.5, Mean Corpuscular Hemoglobin Concent 33.0, Mean Platelet Volume 9.2, Neutrophils (%) (Auto) 77.9, Lymphocytes (%) (Auto) 11.8, Monocytes (%) (Auto) 9.2, Eosinophils (%) (Auto) 0.6, Basophils (%) (Auto) 0.2, Neutrophils # (Auto) 9.17, Lymphocytes # (Auto) 1.39, Monocytes # (Auto) 1.08, Eosinophils # (Auto) 0.07, Basophils # (Auto) 0.02 09/20/17 16:00 Test 09/20/17 15:50 09/20/17 16:00 Influenza Type A Antigen Neg for Influ A (NEG) Influenza Type B Antigen Neg for Influ B (NEG) White Blood Count 11.77 K/uL (4.8-10.8) Red Blood Count 4.17 M/uL (4.7-6.1) Hemoglobin 12.7 g/dL (14.0-18.0) Hematocrit 38.5 % (42-52) Mean Corpuscular Volume 92.3 fL (80-100) Mean Corpuscular Hemoglobin 30.5 pg (25-34) Mean Corpuscular Hemoglobin Concent 33.0 g/dl (32-36) Platelet Count 253 K/uL (130-400) Mean Platelet Volume 9.2 fL (7.4-10.4) Neutrophils (%) (Auto) 77.9 % Lymphocytes (%) (Auto) 11.8 % Monocytes (%) (Auto) 9.2 % Eosinophils (%) (Auto) 0.6 % Basophils (%) (Auto) 0.2 % Neutrophils # (Auto) 9.17 K/uL (1.4-6.5) Lymphocytes # (Auto) 1.39 K/uL (1.2-3.4) Monocytes # (Auto) 1.08 K/uL (0.11-0.59) Eosinophils # (Auto) 0.07 K/uL (0-0.5) Basophils # (Auto) 0.02 K/uL (0-0.2) RDW Standard Deviation 48.1 fL (36.4-46.3) RDW Coefficient of Variation 14.1 % (11.5-14.5) Immature Granulocyte % (Auto) 0.3 % Immature Granulocyte # (Auto) 0.04 K/uL (0.00-0.02) Prothrombin Time 10.8 SECONDS (9.0-12.0) Prothromb Time International Ratio 1.0 (0.9-1.1) Anion Gap 3.0 mmol/L (3-11) Est Creatinine Clear Calc Drug Dose 48.6 ml/min Estimated GFR () 62.2 Estimated GFR (Non- 53.7 BUN/Creatinine Ratio 18.3 (10-20) Calcium Level 8.7 mg/dl (8.5-10.1) Phosphorus Level 2.6 mg/dl (2.5-4.9) Magnesium Level 2.1 mg/dl (1.8-2.4) Total Bilirubin 0.7 mg/dl (0.2-1) Aspartate Amino Transf (AST/SGOT) 46 U/L (15-37) Alanine Aminotransferase (ALT/SGPT) 26 U/L (12-78) Alkaline Phosphatase 56 U/L (45-117) Total Protein 7.0 gm/dl (6.4-8.2) Albumin 2.9 gm/dl (3.4-5.0) Globulin 4.1 gm/dl (2.5-4.0) Albumin/Globulin Ratio 0.7 (0.9-2) Thyroid Stimulating Hormone (TSH) 2.810 uIu/ml (0.300-4.500) Medications Administered Medications (Trade) Dose Ordered Sig/Sosa Route Start Time Stop Time Status Last Admin Dose Admin Sodium Chloride 500 ml @ 999 mls/hr Q31M STAT IV 09/20/17 16:59 09/20/17 17:29 DC 09/20/17 18:02 999 MLS/HR Piperacillin Sod/ Tazobactam Sod (Zosyn Iv) 4.5 gm NOW STAT IV 09/20/17 17:00 09/20/17 17:01 DC 09/20/17 18:02 4.5 GM Medical Decision Differential diagnosis includes pneumonia, UTI, CVA, TIA, sepsis, electrolyte abnormality, among others. The patient is an 81-year-old male who presents today complaining of due to a change in mental status. Patient did have a fever on arrival. Labs revealed leukocytosis of 11,000, mild anemia. BUN and creatinine are slightly elevated. Chest x-ray does show evidence of a new right lower lobe pneumonia. Blood cultures were drawn. Patient was given Zosyn to cover for both community- acquired pneumonia and aspiration event. Due to patient's decline in mental status and age, he will be admitted for further evaluation and treatment of his pneumonia. The case was discussed with the [facility] team, who agreed to evaluate the patient for inpatient treatment. The patient was independently evaluated by Dr. Rdz, ED attending physician, who agreed with my assessment and treatment plan. Medication Reconcilliation Current Medication List: was personally reviewed by me Blood Pressure Screening Patient's blood pressure: Normal blood pressure Impression Primary Impression: Pneumonia Additional Impression: Change in mental status Departure Information Dispostion Admitted as an inpatient Condition FAIR Referrals Vinayak Turner M.D. (PCP) Forms WORK / SCHOOL INSTRUCTIONS, HOME CARE DOCUMENTATION FORM, IMPORTANT VISIT INFORMATION Patient Instructions My [facility] Problem Qualifiers Additional Impression:
[2017-09-21] MEDS: SODIUM CHLORIDE 0.9% 1000ML 1,000 ML IV SCH (04:50)
[2017-09-21 07:20] VITALS: PULSE 86; TEMP 36.6; O2SAT 95
--- NOTE | 2017-09-21 07:35 | DIAGNOSTIC IMAGING REPORT ---
SINGLE VIEW CHEST CLINICAL HISTORY: Pneumonia. FINDINGS: An AP, portable, upright chest radiograph is compared to study dated 09/20/2017. The examination is degraded by portable technique and patient rotation. The heart is enlarged and there is atherosclerotic calcification of the thoracic aorta. The pulmonary vasculature is noncongested. There is a small right pleural effusion with right basilar consolidation. Mild consolidative changes seen at the medial left lung base. Linear atelectasis is noted in the left lower lung. No pneumothorax is seen. The skeletal structures are osteopenic. The bony thorax is grossly intact. IMPRESSION: There is bibasilar consolidation with a small right pleural effusion, similar in appearance to yesterday. The appearance suggests pneumonia. Radiographic follow-up to resolution is recommended. Electronically signed by: Tab Frye M.D. 09/21/2017 7:34 AM Dictated Date/Time: 09/21/2017 7:32 AM
[2017-09-21 07:47] LABS: BASO % 0.3 %; BASO ABS # 0.02 K/uL (0-0.2); EOS % 3.3 %; EOS ABS # 0.25 K/uL (0-0.5); HEMATOCRIT 34.1 % (42-52); HEMOGLOBIN 11.5 g/dL (14.0-18.0); IG# 0.02 K/uL (0.00-0.02); LYMPH % 17.6 %; LYMPH ABS # 1.35 K/uL (1.2-3.4); MEAN CELL VOLUME 91.4 fL (80-100); MEAN CORPUSCULAR HEMOGLOBIN 30.8 pg (25-34); MEAN CORPUSCULAR HGB CONC 33.7 g/dl (32-36); MEAN PLATELET VOLUME 9.2 fL (7.4-10.4); MONO % 7.7 %; MONO ABS # 0.59 K/uL (0.11-0.59); NEUT % 70.8 %; NEUT ABS # 5.45 K/uL (1.4-6.5); PLATELET COUNT 200 K/uL (130-400); RED CELL DISTRIBUTION WIDTH CV 14.2 % (11.5-14.5); RED CELL DISTRIBUTION WIDTH SD 47.2 fL (36.4-46.3); WHITE BLOOD COUNT 7.68 K/uL (4.8-10.8)
[2017-09-21 08:16] LABS: CALCIUM 8.1 mg/dl (8.5-10.1); CREATININE 0.98 mg/dl (0.60-1.40); POTASSIUM 3.7 mmol/L (3.5-5.1)
--- NOTE | 2017-09-21 08:29 | Progress Note ---
Subjective Date of Service: Sep 21, 2017. Subjective Patient is fairly demented he is no focal complaints however does not know he is in the hospital. He has had no particular coughing at this point time aspiration should be considered given the level of his dementia Problem List Medical Problems: (1) Altered mental status Status: Acute (2) Change in mental status Status: Acute (3) Closed head injury Status: Acute (4) Combative behavior Status: Acute (5) Concussion Status: Acute (6) Dementia with aggressive behavior Status: Acute (7) Left sided chest pain Status: Acute (8) Mild anemia Status: Acute Review of Systems Constitutional: No fever, No chills, No weakness Respiratory: No cough, No shortness of breath Cardiac: No chest pain, No edema Abdomen: No pain, No nausea, No diarrhea Male : No dysuria, No urinary frequency Objective Vital Signs Date Time Temp Pulse Resp B/P (MAP) Pulse Ox O2 Delivery O2 Flow Rate FiO2 09/21/17 07:20 36.6 86 19 95 Room Air 09/21/17 00:00 Room Air 09/20/17 23:41 35.9 55 18 109/62 (78) 94 Room Air 09/20/17 19:45 36.9 61 18 136/71 Room Air 09/20/17 19:45 36.9 61 18 136/71 (92) 95 Room Air 09/20/17 18:42 37.7 65 17 139/70 98 Room Air 09/20/17 18:00 68 16 103/69 94 Room Air 09/20/17 16:39 66 09/20/17 16:19 74 12 125/72 94 Room Air 09/20/17 15:37 92 Room Air 09/20/17 15:30 37.8 64 16 135/67 92 Room Air Physical Exam General Appearance: WD/WN, + mild distress Eyes: normal inspection, sclerae normal Neck: supple, no JVD Respiratory/Chest: chest non-tender, + decreased breath sounds, + rales (bases) Cardiovascular: regular rate, rhythm, no murmur Abdomen: normal bowel sounds, non tender, soft Extremities: no pedal edema, no calf tenderness Neurologic/Psychiatric: alert, + disoriented Laboratory Results Last 24 Hours Test 09/20/17 15:50 09/20/17 16:00 09/21/17 06:14 09/21/17 07:29 Influenza Type A Antigen Neg for Influ A Influenza Type B Antigen Neg for Influ B White Blood Count 11.77 K/uL 7.68 K/uL Red Blood Count 4.17 M/uL 3.73 M/uL Hemoglobin 12.7 g/dL 11.5 g/dL Hematocrit 38.5 % 34.1 % Mean Corpuscular Volume 92.3 fL 91.4 fL Mean Corpuscular Hemoglobin 30.5 pg 30.8 pg Mean Corpuscular Hemoglobin Concent 33.0 g/dl 33.7 g/dl Platelet Count 253 K/uL 200 K/uL Mean Platelet Volume 9.2 fL 9.2 fL Neutrophils (%) (Auto) 77.9 % 70.8 % Lymphocytes (%) (Auto) 11.8 % 17.6 % Monocytes (%) (Auto) 9.2 % 7.7 % Eosinophils (%) (Auto) 0.6 % 3.3 % Basophils (%) (Auto) 0.2 % 0.3 % Neutrophils # (Auto) 9.17 K/uL 5.45 K/uL Lymphocytes # (Auto) 1.39 K/uL 1.35 K/uL Monocytes # (Auto) 1.08 K/uL 0.59 K/uL Eosinophils # (Auto) 0.07 K/uL 0.25 K/uL Basophils # (Auto) 0.02 K/uL 0.02 K/uL RDW Standard Deviation 48.1 fL 47.2 fL RDW Coefficient of Variation 14.1 % 14.2 % Immature Granulocyte % (Auto) 0.3 % 0.3 % Immature Granulocyte # (Auto) 0.04 K/uL 0.02 K/uL Prothrombin Time 10.8 SECONDS Prothromb Time International Ratio 1.0 Sodium Level 143 mmol/L 143 mmol/L Potassium Level 4.0 mmol/L 3.7 mmol/L Chloride Level 109 mmol/L 112 mmol/L Carbon Dioxide Level 31 mmol/L 25 mmol/L Anion Gap 3.0 mmol/L 7.0 mmol/L Blood Urea Nitrogen 23 mg/dl 18 mg/dl Creatinine 1.25 mg/dl 0.98 mg/dl Est Creatinine Clear Calc Drug Dose 48.6 ml/min 55.6 ml/min Estimated GFR () 62.2 83.5 Estimated GFR (Non- 53.7 72.0 BUN/Creatinine Ratio 18.3 18.3 Random Glucose 95 mg/dl 79 mg/dl Calcium Level 8.7 mg/dl 8.1 mg/dl Phosphorus Level 2.6 mg/dl Magnesium Level 2.1 mg/dl Total Bilirubin 0.7 mg/dl Aspartate Amino Transf (AST/SGOT) 46 U/L Alanine Aminotransferase (ALT/SGPT) 26 U/L Alkaline Phosphatase 56 U/L Total Protein 7.0 gm/dl Albumin 2.9 gm/dl Globulin 4.1 gm/dl Albumin/Globulin Ratio 0.7 Thyroid Stimulating Hormone (TSH) 2.810 uIu/ml Urine Color YELLOW Urine Appearance CLEAR Urine pH 5.0 Urine Specific [place] 1.030 Urine Protein NEG Urine Glucose (UA) NEG Urine Ketones NEG Urine Occult Blood 2+ Urine Nitrite NEG Urine Bilirubin NEG Urine Urobilinogen NEG Urine Leukocyte Esterase NEG Urine WBC (Auto) 1-5 /hpf Urine RBC (Auto) 5-10 /hpf Urine Hyaline Casts (Auto) 1-5 /lpf Urine Epithelial Cells (Auto) 5-10 /lpf Urine Bacteria (Auto) NEG Urine Opiates Screen NEG Urine Methadone, Qualitative NEG Urine Barbiturates NEG Urine Phencyclidine (PCP) Level NEG Ur Amphetamine/Methamphetamine NEG MDMA (Ecstasy) Screen POS Urine Benzodiazepines Screen NEG Urine Cocaine Metabolite NEG Urine Marijuana (THC) NEG Assessment and Plan 81yo male with metabolic encephalopathy from pneumonia poa, history of dementia , HTN, PAF Metabolic encephalopathy from pneumonia poa CT head unremarkable. -Blood cultures pending -Hold - Trazodone Pneumonia - possible aspiration-Zosyn 3.375gm IV q 6 -Azithromycin 500mg IV daily -Aspiration precautions if nursing concern will consider [employer] Hypertension - Metoprolol Dementia - Olanzapine Sertraline -Hold Ativan in setting of AMS PAF - Amiodarone and in NSR, no anticoagulation on medication list DVT prevention is Lovenox Code - Full
[2017-09-21] MEDS: PIPERACILL/TAZOBAC IV 3.375 GM in DEXTROSE 5% 100ML 100 ML IV SCH ×2 (08:48→15:39)
[2017-09-21] MEDS: METOPROLOL SUCC 25MG EXT REL TAB PO SCH (08:49)
[2017-09-21] MEDS: SERTRALINE HCL 50 MG TAB PO SCH (08:49)
[2017-09-21] MEDS: MAGNESIUM OXIDE 400 MG TAB PO SCH (08:49)
[2017-09-21 09:23] VITALS: Ht 165.1 cm; Wt 74.1 kg
[2017-09-21 15:44] VITALS: BP 108/60; PULSE 84; TEMP 36.6; O2SAT 95
[2017-09-21] MEDS: ENOXAPARIN 40 MG/0.4 ML SYR SQ SCH (21:27)
[2017-09-21] MEDS: AZITHROMYCIN IV 500 MG in DEXTROSE 5% 250ML 250 ML IV SCH (21:27)
[2017-09-21] MEDS: OLANZAPINE 5 MG TAB PO SCH (21:30)
[2017-09-21] MEDS: AMIODARONE 200 MG TAB PO SCH (21:31)
[2017-09-21 21:33] VITALS: BP 167/80; PULSE 69
[2017-09-21 22:31] VITALS: BP 155/80; PULSE 67; TEMP 37.5; O2SAT 93
[2017-09-22] MEDS: PIPERACILL/TAZOBAC IV 3.375 GM in DEXTROSE 5% 100ML 100 ML IV SCH ×4 (00:18→23:50)
[2017-09-22] MEDS: METOPROLOL SUCC 25MG EXT REL TAB PO SCH (07:33)
[2017-09-22] MEDS: SERTRALINE HCL 50 MG TAB PO SCH (07:35)
[2017-09-22] MEDS: MAGNESIUM OXIDE 400 MG TAB PO SCH (07:35)
[2017-09-22 08:06] VITALS: BP 167/78; PULSE 63; TEMP 36.6; O2SAT 93
[2017-09-22 08:56] LABS: CALCIUM 8.4 mg/dl (8.5-10.1); CREATININE 0.94 mg/dl (0.60-1.40); POTASSIUM 3.8 mmol/L (3.5-5.1)
[2017-09-22 15:06] VITALS: BP 150/78; PULSE 63; TEMP 36.6; O2SAT 93
--- NOTE | 2017-09-22 15:58 | Progress Note ---
Subjective Date of Service: Sep 22, 2017. Subjective this pt is pleasantly confused and more animated today, did have speech see and clear 09/22 Problem List Medical Problems: (1) Altered mental status Status: Acute (2) Change in mental status Status: Acute (3) Closed head injury Status: Acute (4) Combative behavior Status: Acute (5) Concussion Status: Acute (6) Dementia with aggressive behavior Status: Acute (7) Left sided chest pain Status: Acute (8) Mild anemia Status: Acute Review of Systems Constitutional: No fever, No chills, No weakness, No fatigue Respiratory: No cough, No shortness of breath Cardiac: No chest pain, No edema Abdomen: No pain, No nausea, No diarrhea Neurologic: + memory loss, + weakness, + balance problems Objective Vital Signs Date Time Temp Pulse Resp B/P (MAP) Pulse Ox O2 Delivery O2 Flow Rate FiO2 09/22/17 15:06 36.6 63 18 150/78 (102) 93 09/22/17 08:06 36.6 63 19 167/78 (107) 93 09/22/17 08:00 Room Air 09/22/17 00:30 Room Air 09/21/17 22:31 37.5 67 18 155/80 (105) 93 Room Air 09/21/17 21:33 69 18 167/80 (109) Room Air 09/21/17 16:00 Room Air Physical Exam General Appearance: WD/WN, + mild distress Eyes: normal inspection, sclerae normal Neck: supple, no JVD Respiratory/Chest: chest non-tender, + decreased breath sounds, + accessory muscle use Cardiovascular: regular rate, rhythm, + systolic murmur Abdomen: normal bowel sounds, non tender, soft Neurologic/Psychiatric: alert, + disoriented Laboratory Results Last 24 Hours Test 09/22/17 08:03 Sodium Level 142 mmol/L Potassium Level 3.8 mmol/L Chloride Level 108 mmol/L Carbon Dioxide Level 24 mmol/L Anion Gap 10.0 mmol/L Blood Urea Nitrogen 14 mg/dl Creatinine 0.94 mg/dl Est Creatinine Clear Calc Drug Dose 58.0 ml/min Estimated GFR () 87.8 Estimated GFR (Non- 75.7 BUN/Creatinine Ratio 14.4 Random Glucose 76 mg/dl Calcium Level 8.4 mg/dl Assessment and Plan 81yo male with metabolic encephalopathy from pneumonia poa, history of dementia , HTN, PAF Metabolic encephalopathy from pneumonia poa CT head unremarkable. 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
[2017-09-22] MEDS: AMIODARONE 200 MG TAB PO SCH (20:51)
[2017-09-22] MEDS: TRAZODONE HCL 50 MG TAB PO SCH (20:51)
[2017-09-22] MEDS: OLANZAPINE 5 MG TAB PO SCH (20:51)
[2017-09-22] MEDS: AZITHROMYCIN IV 500 MG in DEXTROSE 5% 250ML 250 ML IV SCH (20:52)
[2017-09-22] MEDS: ENOXAPARIN 40 MG/0.4 ML SYR SQ SCH (20:52)
[2017-09-22 22:40] VITALS: BP 156/70; PULSE 70; TEMP 36.5; O2SAT 93
[2017-09-23 07:18] VITALS: BP 176/88; PULSE 66; TEMP 36.3; O2SAT 96
[2017-09-23 07:39] LABS: CALCIUM 8.3 mg/dl (8.5-10.1); CREATININE 1.08 mg/dl (0.60-1.40)
[2017-09-23] MEDS: METOPROLOL SUCC 25MG EXT REL TAB PO SCH (08:01)
[2017-09-23] MEDS: MAGNESIUM OXIDE 400 MG TAB PO SCH (08:01)
[2017-09-23] MEDS: PIPERACILL/TAZOBAC IV 3.375 GM in DEXTROSE 5% 100ML 100 ML IV SCH ×3 (08:01→23:49)
[2017-09-23] MEDS: SERTRALINE HCL 50 MG TAB PO SCH (08:01)
--- NOTE | 2017-09-23 13:51 | Hospitalist Progress Note ---
Hospitalist Progress Note Date of Service Sep 23, 2017. Subjective Pt evaluation today including: conversation w/ patient, physical exam, chart review, lab review, review of inpatient medication list Voiding: no voiding problems Mr. Ricci is very confused and unable to give an ROS though he appears comfortable and is sitting peacefully. Medications Medications Administered Medications (Trade) Dose Ordered Sig/Sosa Route Start Time Stop Time Status Last Admin Dose Admin Sodium Chloride 500 ml @ 999 mls/hr Q31M STAT IV 09/20/17 16:59 09/20/17 17:29 DC 09/20/17 18:02 999 MLS/HR Piperacillin Sod/ Tazobactam Sod (Zosyn Iv) 4.5 gm NOW STAT IV 09/20/17 17:00 09/20/17 17:01 DC 09/20/17 18:02 4.5 GM Enoxaparin Sodium (Lovenox Inj) 40 mg Q24H SQ 09/20/17 21:00 10/20/17 20:59 09/22/17 20:52 40 MG Amiodarone HCl (Cordarone Tab) 200 mg QPM PO 09/20/17 21:00 10/20/17 20:59 09/22/17 20:51 200 MG Magnesium Oxide (Mag-Ox Tab) 400 mg DAILY PO 09/21/17 08:00 10/21/17 08:59 09/23/17 08:01 400 MG Metoprolol Succinate (Toprol Xl Tab) 25 mg DAILY PO 09/21/17 08:00 10/21/17 08:59 09/23/17 08:01 25 MG Olanzapine (Zyprexa Tab) 5 mg QPM PO 09/20/17 21:00 10/20/17 20:59 09/22/17 20:51 5 MG Sertraline HCl (Zoloft Tab) 50 mg DAILY PO 09/21/17 08:00 10/21/17 08:59 09/23/17 08:01 50 MG Piperacillin Sod/ Tazobactam Sod 3.375 gm/Dextrose 115 ml @ 28.75 mls/ hr Q8H IV 09/21/17 00:00 09/28/17 00:00 09/23/17 08:01 28.75 MLS/HR Azithromycin 500 mg/Dextrose 255 ml @ 125 mls/hr Q24H IV 09/20/17 21:00 09/27/17 20:59 09/22/17 20:52 125 MLS/HR Sodium Chloride 1,000 ml @ 125 mls/hr Q8H IV 09/20/17 20:45 09/21/17 12:44 DC 09/21/17 04:50 125 MLS/HR Trazodone HCl (Desyrel Tab) 50 mg HS PO 09/22/17 22:00 10/22/17 21:59 09/22/17 20:51 50 MG Objective Vital Signs Date Time Temp Pulse Resp B/P (MAP) Pulse Ox O2 Delivery O2 Flow Rate FiO2 09/23/17 08:00 Room Air 09/23/17 07:18 36.3 66 18 176/88 (117) 96 Room Air 09/23/17 00:00 Room Air 09/22/17 22:40 36.5 70 18 156/70 (98) 93 Room Air 09/22/17 16:00 Room Air 09/22/17 15:06 36.6 63 18 150/78 (102) 93 Physical Exam Notes: General: no distress Eyes: normal inspection, PERLL Respiratory: chest non tender, clear to auscultation, normal breath sounds, moist sounding cough, no respiratory distress, no accessory muscle use Cardiac: regular rate and rhythm, no rub or gallop, no murmur, no edema, no jvd GI/: active bowel sounds, no abd pain or tenderness, soft, non distended Extremities: normal range of motion, normal strength, non tender Neuro/Psych: alert and disoriented, normal mood and affect Skin: normal color, dry Laboratory Results Last 24 Hours Test 09/23/17 06:47 Sodium Level 139 mmol/L Potassium Level 4.0 mmol/L Chloride Level 105 mmol/L Carbon Dioxide Level 27 mmol/L Anion Gap 7.0 mmol/L Blood Urea Nitrogen 11 mg/dl Creatinine 1.08 mg/dl Est Creatinine Clear Calc Drug Dose 50.5 ml/min Estimated GFR () 74.2 Estimated GFR (Non- 64.0 BUN/Creatinine Ratio 10.1 Random Glucose 90 mg/dl Calcium Level 8.3 mg/dl Assessment and Plan 81yo male with metabolic encephalopathy from pneumonia poa, history of dementia , HTN, PAF Metabolic encephalopathy from pneumonia poa CT head unremarkable. 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 Awaiting placement
[2017-09-23 15:09] VITALS: BP 143/75; PULSE 76; TEMP 37; O2SAT 95
[2017-09-23] MEDS: AZITHROMYCIN IV 500 MG in DEXTROSE 5% 250ML 250 ML IV SCH (20:09)
[2017-09-23] MEDS: AMIODARONE 200 MG TAB PO SCH (20:09)
[2017-09-23] MEDS: OLANZAPINE 5 MG TAB PO SCH (20:10)
[2017-09-23] MEDS: ENOXAPARIN 40 MG/0.4 ML SYR SQ SCH (20:10)
[2017-09-23] MEDS: TRAZODONE HCL 50 MG TAB PO SCH (20:10)
[2017-09-23 23:49] VITALS: BP 139/78; PULSE 59; TEMP 36.6; O2SAT 93
[2017-09-24 07:23] VITALS: BP 158/88; PULSE 64; TEMP 36.6; O2SAT 95
[2017-09-24] MEDS: PIPERACILL/TAZOBAC IV 3.375 GM in DEXTROSE 5% 100ML 100 ML IV SCH ×3 (07:30→23:39)
[2017-09-24] MEDS: MAGNESIUM OXIDE 400 MG TAB PO SCH (07:36)
[2017-09-24] MEDS: SERTRALINE HCL 50 MG TAB PO SCH (07:36)
[2017-09-24] MEDS: METOPROLOL SUCC 25MG EXT REL TAB PO SCH (07:36)
[2017-09-24 15:06] VITALS: BP 145/75; PULSE 69; TEMP 36.7; O2SAT 93
--- NOTE | 2017-09-24 15:24 | Hospitalist Progress Note ---
Hospitalist Progress Note Date of Service Sep 24, 2017. Subjective Pt evaluation today including: conversation w/ patient, physical exam, chart review, lab review, review of inpatient medication list Voiding: no voiding problems Patient continues to be very confused, only oriented to self. Unable to respond to ROS Medications Medications Administered Medications (Trade) Dose Ordered Sig/Sosa Route Start Time Stop Time Status Last Admin Dose Admin Sodium Chloride 500 ml @ 999 mls/hr Q31M STAT IV 09/20/17 16:59 09/20/17 17:29 DC 09/20/17 18:02 999 MLS/HR Piperacillin Sod/ Tazobactam Sod (Zosyn Iv) 4.5 gm NOW STAT IV 09/20/17 17:00 09/20/17 17:01 DC 09/20/17 18:02 4.5 GM Enoxaparin Sodium (Lovenox Inj) 40 mg Q24H SQ 09/20/17 21:00 10/20/17 20:59 09/23/17 20:10 40 MG Amiodarone HCl (Cordarone Tab) 200 mg QPM PO 09/20/17 21:00 10/20/17 20:59 09/23/17 20:09 200 MG Magnesium Oxide (Mag-Ox Tab) 400 mg DAILY PO 09/21/17 08:00 10/21/17 08:59 09/24/17 07:36 400 MG Metoprolol Succinate (Toprol Xl Tab) 25 mg DAILY PO 09/21/17 08:00 10/21/17 08:59 09/24/17 07:36 25 MG Olanzapine (Zyprexa Tab) 5 mg QPM PO 09/20/17 21:00 10/20/17 20:59 09/23/17 20:10 5 MG Sertraline HCl (Zoloft Tab) 50 mg DAILY PO 09/21/17 08:00 10/21/17 08:59 09/24/17 07:36 50 MG Piperacillin Sod/ Tazobactam Sod 3.375 gm/Dextrose 115 ml @ 28.75 mls/ hr Q8H IV 09/21/17 00:00 09/28/17 00:00 09/24/17 07:30 28.75 MLS/HR Azithromycin 500 mg/Dextrose 255 ml @ 125 mls/hr Q24H IV 09/20/17 21:00 09/27/17 20:59 09/23/17 20:09 125 MLS/HR Sodium Chloride 1,000 ml @ 125 mls/hr Q8H IV 09/20/17 20:45 09/21/17 12:44 DC 09/21/17 04:50 125 MLS/HR Pneumococcal Polysaccharide Vaccine (Pneumovax-23 Inj) 25 mcg ONCE ONCE IM. 09/21/17 00:30 09/21/17 00:31 DC 09/23/17 16:08 25 MCG Trazodone HCl (Desyrel Tab) 50 mg HS PO 09/22/17 22:00 10/22/17 21:59 09/23/17 20:10 50 MG Objective Vital Signs Date Time Temp Pulse Resp B/P (MAP) Pulse Ox O2 Delivery O2 Flow Rate FiO2 09/24/17 15:06 36.7 69 18 145/75 (98) 93 Room Air 09/24/17 07:24 Room Air 09/24/17 07:23 36.6 64 18 158/88 (111) 95 Room Air 09/24/17 00:00 Room Air 09/23/17 23:49 36.6 59 18 139/78 (98) 93 Room Air 09/23/17 20:00 Room Air 09/23/17 16:23 Room Air Physical Exam Notes: General: no distress Eyes: normal inspection, PERLL Respiratory: chest non tender, clear to auscultation, normal breath sounds, no respiratory distress, no accessory muscle use Cardiac: regular rate and rhythm, no rub or gallop, no murmur, no edema, no jvd GI/: active bowel sounds, no abd pain or tenderness, soft, non distended Extremities: normal range of motion, normal strength, non tender Neuro/Psych: alert and oriented to self only, normal mood and affect Skin: normal color, dry Assessment and Plan 81yo male with metabolic encephalopathy from pneumonia poa, history of dementia , HTN, PAF Metabolic encephalopathy from pneumonia poa CT head unremarkable. 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 Awaiting placement
[2017-09-24 16:00] VITALS: O2SAT 93
[2017-09-24] MEDS: AZITHROMYCIN IV 500 MG in DEXTROSE 5% 250ML 250 ML IV SCH (20:43)
[2017-09-24] MEDS: ENOXAPARIN 40 MG/0.4 ML SYR SQ SCH (20:44)
[2017-09-24] MEDS: OLANZAPINE 5 MG TAB PO SCH (20:44)
[2017-09-24] MEDS: TRAZODONE HCL 50 MG TAB PO SCH (20:44)
[2017-09-24] MEDS: AMIODARONE 200 MG TAB PO SCH (20:45)
[2017-09-24 23:47] VITALS: BP 146/80; PULSE 59; TEMP 36.3; O2SAT 95
[2017-09-25 07:13] VITALS: BP 176/88; PULSE 62; TEMP 35.9; O2SAT 95
[2017-09-25 08:20] VITALS: O2SAT 95
[2017-09-25] MEDS: METOPROLOL SUCC 25MG EXT REL TAB PO SCH (08:41)
[2017-09-25] MEDS: PIPERACILL/TAZOBAC IV 3.375 GM in DEXTROSE 5% 100ML 100 ML IV SCH (08:41)
[2017-09-25] MEDS: SERTRALINE HCL 50 MG TAB PO SCH (08:42)
[2017-09-25] MEDS: MAGNESIUM OXIDE 400 MG TAB PO SCH (08:42)
[2017-09-25] MEDS ORDERED: AMOX875T PO (13:38)
--- NOTE | 2017-09-25 13:47 | Discharge Instructions ---
Discharge Instructions Date of Service Sep 25, 2017. Admission Reason for Admission: Pneumonia Discharge Discharge Diagnosis / Problem: Pneumonia Discharge Goals Goal(s): Decrease discomfort, Improve disease control Activity Recommendations Activity Level: Assistance Required patient has severe dementia . Additional Information Patient informed of condition: No (unable to comprehend) Advance Directives: Yes DNR: No Level of Care: Other (dementia unit at [facility]) Communicable Disease: No Prognosis: Stable Craig Catheter: No Current Hospital Diet Patient's current hospital diet: Regular Diet Discharge Diet Recommended Diet: Regular Diet Procedures Procedures Performed: Head CT Chest X ray Pending Studies Studies pending at discharge: no Physician Orders On Transfer POLST Discussion: without POLST completion Laboratory Results 09/21/17 07:29 Red Blood Count 3.73, Mean Corpuscular Volume 91.4, Mean Corpuscular Hemoglobin 30.8, Mean Corpuscular Hemoglobin Concent 33.7, Mean Platelet Volume 9.2, Neutrophils (%) (Auto) 70.8, Lymphocytes (%) (Auto) 17.6, Monocytes (%) (Auto) 7.7, Eosinophils (%) (Auto) 3.3, Basophils (%) (Auto) 0.3, Neutrophils # (Auto) 5.45, Lymphocytes # (Auto) 1.35, Monocytes # (Auto) 0.59, Eosinophils # (Auto) 0.25, Basophils # (Auto) 0.02 09/23/17 06:47 Test 09/20/17 15:50 09/20/17 16:00 09/21/17 06:14 09/21/17 07:29 Influenza Type A Antigen Neg for Influ A (NEG) Influenza Type B Antigen Neg for Influ B (NEG) Prothrombin Time 10.8 SECONDS (9.0-12.0) Prothromb Time International Ratio 1.0 (0.9-1.1) Phosphorus Level 2.6 mg/dl (2.5-4.9) Magnesium Level 2.1 mg/dl (1.8-2.4) Total Bilirubin 0.7 mg/dl (0.2-1) Aspartate Amino Transf (AST/SGOT) 46 U/L (15-37) Alanine Aminotransferase (ALT/SGPT) 26 U/L (12-78) Alkaline Phosphatase 56 U/L (45-117) Total Protein 7.0 gm/dl (6.4-8.2) Albumin 2.9 gm/dl (3.4-5.0) Globulin 4.1 gm/dl (2.5-4.0) Albumin/Globulin Ratio 0.7 (0.9-2) Thyroid Stimulating Hormone (TSH) 2.810 uIu/ml (0.300-4.500) Urine Color YELLOW Urine Appearance CLEAR (CLEAR) Urine pH 5.0 (4.5-7.5) Urine Specific [place] 1.030 (1.000-1.030) Urine Protein NEG (NEG) Urine Glucose (UA) NEG (NEG) Urine Ketones NEG (NEG) Urine Occult Blood 2+ (NEG) Urine Nitrite NEG (NEG) Urine Bilirubin NEG (NEG) Urine Urobilinogen NEG (NEG) Urine Leukocyte Esterase NEG (NEG) Urine WBC (Auto) 1-5 /hpf (0-5) Urine RBC (Auto) 5-10 /hpf (0-4) Urine Hyaline Casts (Auto) 1-5 /lpf (0-5) Urine Epithelial Cells (Auto) 5-10 /lpf (0-5) Urine Bacteria (Auto) NEG (NEG) Urine Opiates Screen NEG (NEG) Urine Methadone, Qualitative NEG (NEG) Urine Barbiturates NEG (NEG) Urine Phencyclidine (PCP) Level NEG (NEG) Ur Amphetamine/Methamphetamine NEG (NEG) Urine MDE-amphetamine (MDEA) negative Ur Methylenedioxyamphetamine (MDA) negative MDMA (Ecstasy) Screen POS (NEG) Methylenedioxymethamphetamine (MDMA negative Urine Benzodiazepines Screen NEG (NEG) Urine Cocaine Metabolite NEG (NEG) Urine Marijuana (THC) NEG (NEG) White Blood Count 7.68 K/uL (4.8-10.8) Red Blood Count 3.73 M/uL (4.7-6.1) Hemoglobin 11.5 g/dL (14.0-18.0) Hematocrit 34.1 % (42-52) Mean Corpuscular Volume 91.4 fL (80-100) Mean Corpuscular Hemoglobin 30.8 pg (25-34) Mean Corpuscular Hemoglobin Concent 33.7 g/dl (32-36) Platelet Count 200 K/uL (130-400) Mean Platelet Volume 9.2 fL (7.4-10.4) Neutrophils (%) (Auto) 70.8 % Lymphocytes (%) (Auto) 17.6 % Monocytes (%) (Auto) 7.7 % Eosinophils (%) (Auto) 3.3 % Basophils (%) (Auto) 0.3 % Neutrophils # (Auto) 5.45 K/uL (1.4-6.5) Lymphocytes # (Auto) 1.35 K/uL (1.2-3.4) Monocytes # (Auto) 0.59 K/uL (0.11-0.59) Eosinophils # (Auto) 0.25 K/uL (0-0.5) Basophils # (Auto) 0.02 K/uL (0-0.2) RDW Standard Deviation 47.2 fL (36.4-46.3) RDW Coefficient of Variation 14.2 % (11.5-14.5) Immature Granulocyte % (Auto) 0.3 % Immature Granulocyte # (Auto) 0.02 K/uL (0.00-0.02) Test 09/23/17 06:47 Anion Gap 7.0 mmol/L (3-11) Est Creatinine Clear Calc Drug Dose 50.5 ml/min Estimated GFR () 74.2 Estimated GFR (Non- 64.0 BUN/Creatinine Ratio 10.1 (10-20) Calcium Level 8.3 mg/dl (8.5-10.1) Date/Time Source Procedure Growth Status 09/20/17 18:00 Blood Blood Culture - Preliminary NO GROWTH TO DATE. Resulted Medical Emergencies . Who to Call and When: Medical Emergencies: If at any time you feel your situation is an emergency, please call 911 immediately. . Non-Emergent Contact Non-Emergency issues call your: Primary Care Provider Call Non-Emergent contact if: you have a fever, you have any medication questions . . "Provider Documentation" section prepared by Nancy Kilpatrick. . Core Measure Problem Core Measures: None
--- NOTE | 2017-09-25 13:58 | Discharge Summary ---
Discharge Summary Date of Service Sep 25, 2017. Discharge Summary Admission Date: Sep 20, 2017 at 17:58 Discharge Date: Sep 25, 2017 Discharge Disposition: Personal care (dementia unit) Principal Diagnosis: Pneumonia Problems/Secondary Diagnoses: Metabolic encephalopathy, Hypertension, Dementia, PAF Immunizations: Have You Had Influenza Vaccine: Unknown History of Tetanus Vaccine?: Unknown History of Pneumococcal: Unknown History of Hepatitis B Vaccine: Unknown Procedures: SINGLE VIEW CHEST CLINICAL HISTORY: Pneumonia. FINDINGS: An AP, portable, upright chest radiograph is compared to study dated 09/20/2017. The examination is degraded by portable technique and patient rotation. The heart is enlarged and there is atherosclerotic calcification of the thoracic aorta. The pulmonary vasculature is noncongested. There is a small right pleural effusion with right basilar consolidation. Mild consolidative changes seen at the medial left lung base. Linear atelectasis is noted in the left lower lung. No pneumothorax is seen. The skeletal structures are osteopenic. The bony thorax is grossly intact. IMPRESSION: There is bibasilar consolidation with a small right pleural effusion, similar in appearance to yesterday. The appearance suggests pneumonia. Radiographic follow-up to resolution is recommended. Electronically signed by: Tab Frye M.D. 09/21/2017 7:34 AM CHEST ONE VIEW PORTABLE CLINICAL HISTORY: 81 years-old Male presenting with cough, fever. TECHNIQUE: Portable upright AP view of the chest was obtained. COMPARISON: 06/29/2017. FINDINGS: The patient is ENGLISH rotated. Atherosclerosis of the aortic arch. Cardiac silhouette normal in size. Mildly low lung volumes with elevation of the bilateral hemidiaphragms. Bronchial wall thickening evident. Right basilar opacities increased from prior. Small right pleural effusion. Apparent gas below the right hemidiaphragm is unchanged since the prior exam. Degenerative changes of the thoracic spine. IMPRESSION: 1. Mildly low lung volumes with increased right basilar opacity. Infection or aspiration cannot be excluded. 2. Small parapneumonic effusion. 3. Apparent gas beneath the right hemidiaphragm is unchanged in appearance since the prior exam and may represent colonic gas in the setting of colonic interposition. Electronically signed by: Narendra Lawrence M.D. 09/20/2017 3:52 PM HEAD WITHOUT CONTRAST (CT) CT DOSE: 614.27 mGy.cm HISTORY: Mental status change ams TECHNIQUE: Multiaxial CT images of the head were performed without the use of intravenous contrast. A dose lowering technique was utilized adhering to the principles of ALARA. Comparison: 09/16/2017 Findings: The paranasal sinuses and mastoid air cells are clear. The calvarium and skull base are intact. The ventricles and sulci are within normal limits. There is no mass, hematoma, midline shift, or acute infarct. Mild age-related chronic small vessel change Impression: No acute intracranial abnormality. Mild age-related chronic small vessel change. Electronically signed by: Arnaud Rosa M.D. 09/20/2017 4:57 PM Medication Reconciliation New Medications: Amoxicillin & Pot Clavulanate (Augmentin 875-125 mg) 1 Tab Tab 1 TAB PO BID for 4 Days, #8 TAB Continued Medications: Acetaminophen (Tylenol) 500 Mg Tab 1000 MG PO Q8 PRN for Pain, TAB MAX APAP= 3GM/24HRS Amiodarone Hcl (Cordarone) 200 Mg Tab 200 MG PO QPM Enteral Nutrition Formula (Ensure Plus Vanilla) 1 Can Liqd 1 CAN PO BID Lorazepam (Ativan) 0.5 Mg Tab 0.5 MG PO BID PRN for Anxiety, TAB Magnesium Oxide (Mag-Ox) 400 Mg Tab 400 MG PO DAILY, TAB Metoprolol Succinate (Metoprolol Succinate ER) 25 Mg Tabcr 25 MG PO DAILY Olanzapine (Olanzapine) 5 Mg Tab 5 MG PO QPM Sertraline (Zoloft) 50 Mg Tab 50 MG PO DAILY, TAB Trazodone Hcl (Trazodone) 50 Mg Tab 50 MG PO HS, TAB Discharge Exam ROS unable to assess due to mental status General: no distress Eyes: normal inspection, PERLL Respiratory: chest non tender, clear to auscultation, normal breath sounds, no respiratory distress, no accessory muscle use Cardiac: regular rate and rhythm, no rub or gallop, no murmur, no edema, no jvd GI/: active bowel sounds, no abd pain or tenderness, soft, non distended Extremities: normal range of motion, normal strength, non tender Neuro/Psych: alert and oriented to self, normal mood and affect Skin: normal color, dry Hospital Course 81yo male with metabolic encephalopathy from pneumonia poa, history of dementia , HTN, PAF Metabolic encephalopathy from pneumonia poa CT head unremarkable. 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 Discharge Instructions Please refer to the electronic Patient Visit Report (Discharge Instructions) for additional information. Additional Copies To [facility]
[2017-09-25 14:30] VITALS: BP 176/88; PULSE 62; TEMP 35.9; O2SAT 95
== END 2017-09-25 16:49 | disposition home or self-care (01) | DRG 177 ==
LOC: EDBD 15:16 → C.EDC 15:17 → C.MS4W 17:58 → ENRESERV 18:39
PROVIDERS: ADMIT Internal Medicine; ATTEND Internal Medicine Sports Medicine
DX: J69.0 Pneumonitis due to inhalation of food and vomit (principal); G93.41 Metabolic encephalopathy; J45.909 Unspecified asthma, uncomplicated; I48.0 Paroxysmal atrial fibrillation; I10 Essential (primary) hypertension; F03.90 Unspecified dementia, unspecified severity, without behavioral disturbance, psychotic disturbance, mood disturbance, and anxiety; Z85.528 Personal history of other malignant neoplasm of kidney; Z91.013 Allergy to seafood; Z90.5 Acquired absence of kidney

== ENCOUNTER 2018-01-18 11:44 | Emergency (ER) | payer OTHER, MEDICARE ==
[~2018-01-18] VITALS: Ht 177.8 cm; Wt 73.4 kg
[~2018-01-18 11:44] MED LIST changes: +NUTR-25 PO; -NUTR-977 PO; +TRAZ50TA35 PO; +ZYP10 PO; -ZYP5 PO
[2018-01-18] MEDS ORDERED: SODIUM CHLORIDE 0.9% 1000ML 1,000 ML IV STA (12:05)
[2018-01-18 12:18] LABS: BASO % 0.1 %; BASO ABS # 0.01 K/uL (0-0.2); EOS % 1.1 %; EOS ABS # 0.08 K/uL (0-0.5); HEMATOCRIT 40.5 % (42-52); HEMOGLOBIN 13.3 g/dL (14.0-18.0); IG# 0.01 K/uL (0.00-0.02); LYMPH ABS # 1.04 K/uL (1.2-3.4); MEAN CELL VOLUME 93.5 fL (80-100); MEAN CORPUSCULAR HEMOGLOBIN 30.7 pg (25-34); MEAN CORPUSCULAR HGB CONC 32.8 g/dl (32-36); MEAN PLATELET VOLUME 9.8 fL (7.4-10.4); MONO % 10.9 %; MONO ABS # 0.81 K/uL (0.11-0.59); NEUT % 73.8 %; NEUT ABS # 5.49 K/uL (1.4-6.5); PLATELET COUNT 241 K/uL (130-400); RED CELL DISTRIBUTION WIDTH CV 14.1 % (11.5-14.5); WHITE BLOOD COUNT 7.44 K/uL (4.8-10.8)
[2018-01-18 12:27] VITALS: O2SAT 97
[2018-01-18 12:27] LABS: PTT PATIENT 29.4 SECONDS (21.0-31.0)
[2018-01-18 12:36] LABS: ALBUMIN 3.3 gm/dl (3.4-5.0); ALKALINE PHOSPHATASE 66 U/L (45-117); ALT/SGPT 21 U/L (12-78); AST/SGOT 20 U/L (15-37); BLOOD UREA NITROGEN 23 mg/dl (7-18); CALCIUM 8.5 mg/dl (8.5-10.1); CARBON DIOXIDE 27 mmol/L (21-32); CREATININE 1.09 mg/dl (0.60-1.40); GLUCOSE 88 mg/dl (70-99); LIPASE 94 U/L (73-393); POTASSIUM 3.6 mmol/L (3.5-5.1); SODIUM 143 mmol/L (136-145); TOTAL PROTEIN 7.2 gm/dl (6.4-8.2)
--- NOTE | 2018-01-18 13:26 | EMERGENCY ROOM VISIT NOTE ---
History Report prepared by Joby: Leslie Carpenter Under the Supervision of: Latrice EsquivelO. First contact with patient: 12:00 Chief Complaint: DIARRHEA Stated Complaint: [facility] Nursing Triage Summary: pt arrives by BLS from [facility]. pt w/ hx of dementia. non verbal on assessment. per EMS pt w/ runny diarrhea since yesturday. no cother complaints. History of Present Illness The patient is a 82 year old male who presents to the Emergency Room with complaints of an episode of diarrhea that occurred today. The history was limited secondary to dementia. History was obtained through hospital personnel via nursing staff. Source of History: nursing staff History Limited By: dementia Onset: today Position: other (bowels) Quality: other (Diarrhea ) Timing: other (episde ) Associated Symptoms: + diarrhea Review of Systems See HPI for pertinent positives & negatives. A total of 10 systems reviewed and were otherwise negative. Past Medical & Surgical Medical Problems: (1) ACQRD ABSENCE OF KIDNEY (2) Asthma (3) CATARACT NOS (4) Cellulitis of left arm (5) Dementia (6) Dementia (7) HX-PROSTATIC MALIGNANCY (8) Hypertension (9) kidney cancer (10) Pneumonia (11) UMBILICAL HERNIA (12) unilateral nephrectomy Surgical Problems: (1) History of cholecystectomy (2) History of nephrectomy Family History FH: cancer FHx: cancer Kidney disease or stones Social History Smoking Status: Unknown if Ever Smoked Alcohol Use: occasionally Drug Use: none Marital Status: Housing Status: lives with significant other Occupation Status: retired Current/Historical Medications Scheduled Amiodarone Hcl (Cordarone), 200 MG PO QPM Cetirizine (Zyrtec), 10 MG PO DAILY Magnesium Oxide (Mag-Ox), 400 MG PO DAILY Metoprolol Succinate (Metoprolol Succinate ER), 25 MG PO QAM Metronidazole (Flagyl), 500 MG PO TID Nutritional Supplements (Boost Plus), 1 BTL PO BID Olanzapine (Olanzapine), 10 MG PO HS Sertraline (Zoloft), 50 MG PO QAM Trazodone Hcl (Trazodone), 25 MG PO HS Scheduled PRN Acetaminophen (Tylenol), 1,000 MG PO Q8 PRN for Pain Lorazepam (Ativan), 0.5 MG PO BID PRN for Anxiety Allergies Coded Allergies: Shellfish (Verified Allergy, Intermediate, GI DISTRESS, RASH, 01/18/18) Physical Exam Vital Signs Date Time Temp Pulse Resp B/P (MAP) Pulse Ox O2 Delivery O2 Flow Rate FiO2 01/18/18 16:03 36.6 63 18 150/75 96 01/18/18 15:37 63 18 150/75 96 Room Air 01/18/18 15:00 67 18 142/77 96 Room Air 01/18/18 14:25 69 18 148/73 96 Room Air 01/18/18 12:34 58 01/18/18 12:27 97 Room Air 01/18/18 12:27 97 Room Air 01/18/18 11:59 36.6 63 18 141/85 95 Room Air Physical Exam GENERAL: Patient is awake but minimally responsive to verbal commands. EYES: The conjunctivae are clear. The pupils are round and reactive. EARS, NOSE, MOUTH AND THROAT: Mucous membranes are moist. NECK: The neck is nontender and supple. RESPIRATORY: Normal respiratory effort is noted. There is no evidence of wheezing rhonchi or rales to auscultation. CARDIOVASCULAR: Regular rate and rhythm noted to auscultation. GASTROINTESTINAL: The abdomen is mildly distended but soft. No guarding or rigidity. MUSCULOSKELETAL/EXTREMITIES: There is no evidence of gross deformity. Full range of motion is noted in the hips and shoulders. SKIN: Trace pedal edema noted bilaterally NEUROLOGIC: Doesn't answer questions. Unable to access orientation. Strength was diminished but symmetric. Medical Decision & Procedures ER Provider Diagnostic Interpretation: Radiology results as stated below per my review and radiologist interpretation: ABDOMEN 2VIEW W/PA CHEST RTN CLINICAL HISTORY: 82 years-old Male presenting with diarrhea. TECHNIQUE: PA view of the chest and supine and left lateral decubitus views of the abdomen were obtained. COMPARISON: Chest x-ray from 11/12/2017. FINDINGS: Atherosclerosis of aortic arch. Cardiac silhouette mildly enlarged. Mild pulmonary vascular prominence. Mildly low lung volumes with elevation of the bilateral hemidiaphragms as on prior exam. Bandlike opacity in the left midlung, unchanged. No new focal opacity. No large effusion or pneumothorax. Surgical clips project over the mid abdomen as well as the pelvis. Diffuse gaseous distention of large bowel. Gas is noted to the level of the upper rectum. Gas also noted in nondistended small bowel. Moderate stool burden in the rectum. Multiple air-fluid levels in the large bowel. No gross pneumoperitoneum. Allowing for bowel gas and stool, no calcifications to suggest nephrolithiasis. Degenerative changes of the spine. IMPRESSION: 1. Mild cardiomegaly with possible volume overload. 2. Persistent left midlung atelectasis or scarring. 3. Gaseous distention of large bowel without convincing evidence of obstruction as gas is seen to the level the rectum. Electronically signed by: Narendra Lawrence M.D. 01/18/2018 1:40 PM Dictated Date/Time: 01/18/2018 1:37 PM Laboratory Results 01/18/18 11:50 Red Blood Count 4.33, Mean Corpuscular Volume 93.5, Mean Corpuscular Hemoglobin 30.7, Mean Corpuscular Hemoglobin Concent 32.8, Mean Platelet Volume 9.8, Neutrophils (%) (Auto) 73.8, Lymphocytes (%) (Auto) 14.0, Monocytes (%) (Auto) 10.9, Eosinophils (%) (Auto) 1.1, Basophils (%) (Auto) 0.1, Neutrophils # (Auto ) 5.49, Lymphocytes # (Auto) 1.04, Monocytes # (Auto) 0.81, Eosinophils # (Auto ) 0.08, Basophils # (Auto) 0.01 01/18/18 11:50 Test 01/18/18 11:50 01/18/18 14:15 White Blood Count 7.44 K/uL (4.8-10.8) Red Blood Count 4.33 M/uL (4.7-6.1) Hemoglobin 13.3 g/dL (14.0-18.0) Hematocrit 40.5 % (42-52) Mean Corpuscular Volume 93.5 fL (80-100) Mean Corpuscular Hemoglobin 30.7 pg (25-34) Mean Corpuscular Hemoglobin Concent 32.8 g/dl (32-36) Platelet Count 241 K/uL (130-400) Mean Platelet Volume 9.8 fL (7.4-10.4) Neutrophils (%) (Auto) 73.8 % Lymphocytes (%) (Auto) 14.0 % Monocytes (%) (Auto) 10.9 % Eosinophils (%) (Auto) 1.1 % Basophils (%) (Auto) 0.1 % Neutrophils # (Auto) 5.49 K/uL (1.4-6.5) Lymphocytes # (Auto) 1.04 K/uL (1.2-3.4) Monocytes # (Auto) 0.81 K/uL (0.11-0.59) Eosinophils # (Auto) 0.08 K/uL (0-0.5) Basophils # (Auto) 0.01 K/uL (0-0.2) RDW Standard Deviation 48.0 fL (36.4-46.3) RDW Coefficient of Variation 14.1 % (11.5-14.5) Immature Granulocyte % (Auto) 0.1 % Immature Granulocyte # (Auto) 0.01 K/uL (0.00-0.02) Prothrombin Time 10.9 SECONDS (9.0-12.0) Prothromb Time International Ratio 1.0 (0.9-1.1) Activated Partial Thromboplast Time 29.4 SECONDS (21.0-31.0) Partial Thromboplastin Ratio 1.1 Anion Gap 8.0 mmol/L (3-11) Estimated GFR () 72.9 Estimated GFR (Non- 62.9 BUN/Creatinine Ratio 20.9 (10-20) Calcium Level 8.5 mg/dl (8.5-10.1) Magnesium Level 1.9 mg/dl (1.8-2.4) Total Bilirubin 0.5 mg/dl (0.2-1) Direct Bilirubin 0.1 mg/dl (0-0.2) Aspartate Amino Transf (AST/SGOT) 20 U/L (15-37) Alanine Aminotransferase (ALT/SGPT) 21 U/L (12-78) Alkaline Phosphatase 66 U/L (45-117) Troponin I < 0.015 ng/ml (0-0.045) Total Protein 7.2 gm/dl (6.4-8.2) Albumin 3.3 gm/dl (3.4-5.0) Lipase 94 U/L (73-393) Thyroid Stimulating Hormone (TSH) 4.160 uIu/ml (0.300-4.500) Urine Color YELLOW Urine Appearance CLEAR (CLEAR) Urine pH 5.0 (4.5-7.5) Urine Specific [place] 1.023 (1.000-1.030) Urine Protein NEG (NEG) Urine Glucose (UA) NEG (NEG) Urine Ketones NEG (NEG) Urine Occult Blood NEG (NEG) Urine Nitrite NEG (NEG) Urine Bilirubin NEG (NEG) Urine Urobilinogen NEG (NEG) Urine Leukocyte Esterase NEG (NEG) Laboratory results per my review. Medications Administered Medications (Trade) Dose Ordered Sig/Sosa Route Start Time Stop Time Status Last Admin Dose Admin Sodium Chloride 1,000 ml @ 999 mls/hr Q1H1M STAT IV 01/18/18 12:05 01/18/18 13:05 DC 01/18/18 12:05 999 MLS/HR Metronidazole (Flagyl / Nss) 500 mg NOW STAT IV 01/18/18 14:04 01/18/18 14:06 DC 01/18/18 14:04 500 MG ECG Per My Interpretation Indication: altered mental status Rate (beats per minute): 58 Rhythm: sinus bradycardia Findings: no ectopy, other (No ST segment segments) Comparison ECG Date: no prior available ED Course 1204: The patient was evaluated in room B7. A complete history and physical examination were performed 1205: Ordered NSS 1,000 ml @ 1,000 ml @ 999mls/hr IV. . 1404: Upon reevaluation, the patient is resting comfortably. I discussed the results and treatment plan with his son. He verbalized agreement of the treatment plan and is fine with his father being discharged. The patient was discharged home. Medical Decision Prior records/ancillary studies reviewed. Triage Nursing notes reviewed. The patient's history was concerning for abdominal pain. Differential diagnosis: Etiologies such as appendicitis, diverticulitis, PUD, biliary pathology, UTI, pancreatitis, obstruction, mesenteric ischemia, aortic pathology, infections, inflammatory bowel disease, renal colic, as well as others were entertained. The patient is an 82-year-old male who presented to the emergency department for an evaluation of diarrhea. The patient has severe dementia and history was very limited. The patient's son presented to the emergency department and gave more history. I discussed patient's laboratory and radiographic studies with the son. The patient was started on Flagyl. The charge nurse was able to speak with the nursing staff at the patient's personal [facility]. He was discharged home with a diagnosis of C. difficile colitis. Medication Reconcilliation Current Medication List: was personally reviewed by me Blood Pressure Screening Patient's blood pressure: Elevated blood pressure Blood pressure disposition: Elevated BP felt to be situational Impression Primary Impression: C. difficile colitis Scribe Attestation The scribe's documentation has been prepared under my direction and personally reviewed by me in its entirety. I confirm that the note above accurately reflects all work, treatment, procedures, and medical decision making performed by me. Departure Information Dispostion Home / Self-Care Prescriptions Metronidazole (FLAGYL) 500 Mg Tab 500 MG PO TID, #42 TAB Prov: Colby Mulligan, DO 01/18/18 Referrals [facility] Forms HOME CARE DOCUMENTATION FORM, IMPORTANT VISIT INFORMATION, WORK / SCHOOL INSTRUCTIONS Patient Instructions My [facility] Additional Instructions Continue all medications as prescribed. Encouraged the patient to drink plenty clear liquids.
--- NOTE | 2018-01-18 13:41 | DIAGNOSTIC IMAGING REPORT ---
ABDOMEN 2VIEW W/PA CHEST RTN CLINICAL HISTORY: 82 years-old Male presenting with diarrhea. TECHNIQUE: PA view of the chest and supine and left lateral decubitus views of the abdomen were obtained. COMPARISON: Chest x-ray from 11/12/2017. FINDINGS: Atherosclerosis of aortic arch. Cardiac silhouette mildly enlarged. Mild pulmonary vascular prominence. Mildly low lung volumes with elevation of the bilateral hemidiaphragms as on prior exam. Bandlike opacity in the left midlung, unchanged. No new focal opacity. No large effusion or pneumothorax. Surgical clips project over the mid abdomen as well as the pelvis. Diffuse gaseous distention of large bowel. Gas is noted to the level of the upper rectum. Gas also noted in nondistended small bowel. Moderate stool burden in the rectum. Multiple air-fluid levels in the large bowel. No gross pneumoperitoneum. Allowing for bowel gas and stool, no calcifications to suggest nephrolithiasis. Degenerative changes of the spine. IMPRESSION: 1. Mild cardiomegaly with possible volume overload. 2. Persistent left midlung atelectasis or scarring. 3. Gaseous distention of large bowel without convincing evidence of obstruction as gas is seen to the level the rectum. Electronically signed by: Narendra Lawrence M.D. 01/18/2018 1:40 PM Dictated Date/Time: 01/18/2018 1:37 PM
[2018-01-18] MEDS ORDERED: METRONIDAZOLE 500MG / 100ML NSS IV STA (14:04)
[2018-01-18] MEDS ORDERED: CETI10TA84 PO (14:57)
[2018-01-18] MEDS ORDERED: METR-162 PO (15:06)
[2018-01-18 16:03] VITALS: BP 150/75; PULSE 63; TEMP 36.6; O2SAT 96
== END 2018-01-18 16:03 | disposition home or self-care (01) ==
LOC: EDBD 11:44 → C.EDB 11:46
DX: A04.72 Enterocolitis due to Clostridium difficile, not specified as recurrent (principal); F03.90 Unspecified dementia, unspecified severity, without behavioral disturbance, psychotic disturbance, mood disturbance, and anxiety; I10 Essential (primary) hypertension; Z85.46 Personal history of malignant neoplasm of prostate; Z85.528 Personal history of other malignant neoplasm of kidney; Z91.013 Allergy to seafood

== ENCOUNTER 2018-10-03 16:46 | Inpatient (IN) ==
--- OUTSIDE RECORDS SUMMARY | 2018-10-03 16:48 | External Medical Summary | Continuity of Care Document ---
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) Nephrectomy Left Renal cell carcinoma (189.0) (C64.9) Prostate cancer (185) (C61) On amiodarone therapy (V58.69) (Z79.899) CAD (coronary artery disease) (414.00) (I25.10) Otitis externa (380.10) (H60.90) 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, probable, 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) Hydrocele (603.9) (N43.3) Weakness (780.79) (R53.1) Edema (782.3) (R60.9) Abscess, wrist (682.4) (L02.419) Insomnia (780.52) (G47.00) Hypomagnesemia (275.2) (E83.42) Mild anemia (285.9) (D64.9) Vasovagal syncope (780.2) (R55) Noncompliance with medications (V15.81) (Z91.14) Medication management (V58.69) (Z79.899) Asthma (493.90) (J45.909) Atrial fibrillation (427.31) (I48.91) Dementia (294.20) (F03.90) Cough (786.2) (R05) Allergic rhinitis, unspecified seasonality, unspecifie d trigger (477.9) (J30.9) Hypertension (401.9) (I10) Allergies and Adverse Reactions Shellfish-derived Products (Allergy) Reaction: Vomiting, Diarrhea , Difficulty Swallowin g, Rash Medications Amiodarone HCl - 200 MG Oral Tablet; take 1 tablet by mouth once daily Zayda Turner Start: 27-Nov-2012 Quantity: 90 Refills: 3 Metoprolol Succinate ER 25 MG Oral Table t Extended Release 24 Hour; take 1 tablet by mouth once daily Zayda Turner Start: 27-Nov-2012 Quantity: 90 Refills: 3 Ensure Oral Liquid; DRINK 1 CAN TWICE DAILY 237 ML Bottle Refills: 0 ZyrTEC Allergy 10 MG Oral Tablet; TAKE 1 TABLET DAILY. Zayda Gee v Start: 24-Dec-2017 Quantity: 90 Refills: 1 LORazepam 0.5 MG Oral Tablet; Take 1 tablet twice daily Start: 12-Dec-2017 Refills: 0 Sertraline HCl - 50 MG Oral Tablet; Take 1 tablet daily Zayda Sanchez Start: 19-Aug-2017 Quantity: 90 Refills: 3 traZODone HCl - 50 MG Oral Tablet; TAKE 0.5 TABLET Bed time Zayda Turner Start: 19-Aug-2017 Quantity: 15 Refills: 3 Acetaminophen Extra Strength 500 MG Oral Tablet; TAKE 2 TABLETS EVERY 8 HOURS NEEDED. Refills: 0 Magnesium Oxide 400 MG Oral Tablet; TAKE 1 TABLET DAILY. BRANDON Winston Quantity: 30 Refills: 11 OLANZapine 10 MG Oral Tablet; TAKE 1 TABLET AT BEDTIME. Zayda Sanchez Start: 18-Jun-2016 Quantity: 28 Refills: 5 Ciprodex 0.3-0.1 % Otic Suspension; INST ILL 4 DROPS IN THE AFFECTED EAR(S) TWICE DAILY BRANDON Pichardo Start: 06-Mar-2018 Quantity: 1 7.5 ML Bottle Refills: 0 Procedures History of Nephrectomy Status: Completed 03-Jun-1985 0:00 History of Prostate Surgery Status: Comp leted History of Bladder Surgery Status: Compl eted History of Complete Colonoscopy Status: Completed 03-Jun-2009 0:00 History of Umbilical Hernia Repair Statu s: Completed History of Blood Transfusion (___ Ml) St atus: Completed Nephrectomy Left Immunizations Fluzone High-Dose Intramuscular Suspension On: 16-May-2011 1 1:38 Lot #: [id number], SANOFI PASTEUR Influenza On: 10-Apr-2012 10:35 Lot #: [id number], SANOFI PASTEUR Influenza On: 12-Mar-2013 11:49 Lot #: [id number], SANOFI PASTEUR Influenza On: 07-May-2014 10:16 Lot #: [id number], SANOFI PASTEUR Fluzone High-Dose Intramuscular Suspension On: 11-Apr-2015 17 :07 Lot #: [id number], SANOFI PASTEUR Fluzone High-Dose Intramuscular Suspension On: 12-Apr-2016 1 1:08 Lot #: [id number], SANOFI PASTEUR Family History Father Family history of Cancer Status: Active Brother Family history of Cancer Status: Active Unknown Family Member Family history of Father At Age ___ Status: Active Comments: Family History Family history of Mother At Age ___ Status: Active Comments: Family History Social History - Smoking Status Unknown if ever smoked Never smoker Plan of Treatment Planned Encounters Appointment; Des Turner M.D. Start: 18-Dec-2018 14:00 Request Planned Observations Planned Goals not documented Results No Known Results Results not documented Encounters Appointment; Des Turner M.D. 19-Jun-2018 13:30 Encounter Diagnosis: Problem not documented Appointment; Reina Pichardo PA-C 06-Mar-2018 9:00 Encounter Diagnosis: Problem not documented Appointment; Des Turner M.D. 12-Dec-2017 13:00 Encounter Diagnosis: Problem not documented Appointment; Jah Vemra PA-C 11-Jul-2017 14:00 Encounter Diagnosis: Problem not documented Appointment; Jah Verma PA-C 04-Jul-2017 15:00 Encounter Diagnosis: Problem not documented Appointment; Des Turner M.D. 13-Jun-2017 13:15 Encounter Diagnosis: Problem not documented Appointment; Carson Mcmahon M.D. 05-Jun-2017 9:20 Encounter Diagnosis: Problem not documented Appointment; Urology, Room 7 05-Jun-2017 9:10 Encounter Diagnosis: Problem not documented Appointment; Benson Verdugo M.D. 22-May-2017 9:45 Encounter Diagnosis: Problem not documented Appointment; Des Turner M.D. 03-Dec-2016 13:30 Encounter Diagnosis: Problem not documented Appointment; Benson Verdugo M.D. 19-Nov-2016 11:30 Encounter Diagnosis: Problem not documented Appointment; Des Turner M.D. 18-Dec-2018 14:00 Encounter Diagnosis: Problem not documented
[2018-10-03] MEDS ORDERED: PIPERACILL/TAZOBAC CONSULT ACTIVE PRN ×2 (16:59→21:35)
[2018-10-03] MEDS ORDERED: PIPERACILLIN/TAZOBACTAM 4.5 GM/120 ML BAG IV ONE (16:59)
[2018-10-03] MEDS ORDERED: SODIUM CHLORIDE 0.9% 1000ML 1,000 ML IV SCH (17:00)
[2018-10-03 17:11] LABS: Basophils # (auto) 0.01 K/uL (0-0.2); Basophils % (auto) 0.1 %; Hematocrit (blood only) 39.2 % (42-52); Hemoglobin 13.5 g/dL (14.0-18.0); Immature Granulocytes # (auto) 0.04 K/uL (0.00-0.02); Immature Granulocytes % (auto) 0.3 %; Lymphocytes # (auto) 1.56 K/uL (1.2-3.4); Lymphocytes % (auto) 11.4 %; Mean Corpuscular Hgb Conc 34.4 g/dL (32-36); Mean Corpuscular Volume 91.6 fL (80-100); Mean Platelet Volume 9.8 fL (7.4-10.4); Monocytes # (auto) 1.47 K/uL (0.11-0.59); Monocytes % (auto) 10.7 %; Neutrophils # (auto) 10.65 K/uL (1.4-6.5); Neutrophils % (auto) 77.5 %; Platelet Count 263 K/uL (130-400); RDW Coefficient of Variation 14.3 % (11.5-14.5); RDW Standard Deviation 48.2 fL (36.4-46.3); Red Blood Count 4.28 M/uL (4.7-6.1); White Blood Count 13.73 K/uL (4.8-10.8)
[2018-10-03 17:31] LABS: Albumin Level 2.8 gm/dl (3.4-5.0); BUN Creatinine Ratio 43.1 (10-20); Calcium 9.1 mg/dl (8.5-10.1); Creatinine Clr Calc Pharmacy 46.1 ml/min; Est GFR (African American) 66.2; Est GFR (Non-African American) 57.1; Magnesium 2.6 mg/dl (1.8-2.4); Potassium 3.8 mmol/L (3.5-5.1)
[2018-10-03 17:32] LABS: Appearance Urine Clear (Clear); Bacteria Urine Automated Negative (Negative); Bilirubin Urine Negative (Negative); Blood Urine Trace (Negative); Color Urine Dark Yellow; Glucose Urine UA Negative (Negative); Ketones Urine Negative (Negative); Leukocyte Esterase Urine Negative (Negative); Nitrite Urine Negative (Negative); Protein Urine Trace (Negative); Specific Gravity Urine 1.023 (1.000-1.030); Urobilinogen Urine Negative (Negative); WBC Urine Automated 0 /hpf (0-5)
[2018-10-03 17:36] LABS: Albumin Globulin Ratio 0.7 (0.9-2); Bilirubin,Total 0.3 mg/dl (0.2-1); Globulin 4.2 gm/dl (2.5-4.0); Troponin I 0.028 ng/ml (0-0.045)
[2018-10-03 17:36] LABS: Base Excess VBG 1.1 mEq/L; Oxygen Saturation VBG 83.8 %; pH VBG 7.39 (7.36-7.41)
--- NOTE | 2018-10-03 18:04 | XRay Report ---
XR chest 1V portable CLINICAL HISTORY: Dyspnea COMPARISON STUDY: 09/13/2018 FINDINGS: The heart is normal in size. There is prominent gas beneath the right hemidiaphragm. This l ikely represents colonic interposition. There are low lung volumes with hypoventilatory changes at th e lung bases. There is no overt failure. There are no significant pleural effusions. IMPRESSION: 1. Low lung volumes with hypoventilatory changes at the lung bases 2. Gas beneath the right hemidiaphragm, likely secondary to colonic interposition. Correlation with a ny abdominal symptomatology is advocated. Electronically signed by: Doug Kwok M.D. 10/03/2018 6:03 PM
--- NOTE | 2018-10-03 18:07 | CT Scan Report ---
CT head/brain wo con CLINICAL HISTORY: Acute change in mental status COMPARISON STUDY: 09/13/2018 TECHNIQUE: Axial CT of the brain is performed from the vertex to the skull base. IV contrast was not administered for this examination. A dose lowering technique was utilized adhering to the principles of ALARA. CT DOSE: 614.27 mGy.cm FINDINGS: No intra or extra-axial mass lesions are visualized. There is no CT evidence of acute cortical infarc tion. There is no evidence of midline shift. There is no acute hemorrhage. No calvarial fractures ar e visualized. There are patchy white matter hypodensities likely on a small vessel basis. There are atrophic change s. There is no evidence of pathologic ventricular dilatation. There is no evidence of acute sinusitis IMPRESSION: No acute intracranial findings Electronically signed by: Doug Kwok M.D. 10/03/2018 6:06 PM
--- NOTE | 2018-10-03 18:32 | CT Scan Report ---
CT SCAN OF THE CHEST, ABDOMEN, AND PELVIS WITHOUT IV CONTRAST CLINICAL HISTORY: Unresponsive. Change in mental status. Dyspnea. COMPARISON STUDY: Chest x-ray dated 10/03/2018. Abdominal CT dated 06/29/2017. TECHNIQUE: CT scan of the chest, abdomen, and pelvis was performed from the thoracic inlet to the pro ximal femora. Images are reviewed in the axial, sagittal, and coronal planes. IV contrast was not adm inistered as per the referring clinician. Note that the examination was performed in suboptimal fashi on without IV contrast. A dose lowering technique was utilized adhering to the principles of ALARA. The examination is degraded by motion artifact, as well as by streak artifact from the arms which co uld not be elevated above the chest or abdomen. CT DOSE: 605.22 mGy.cm FINDINGS: CHEST: Thyroid: Imaged portions of the thyroid gland are normal in size and attenuation. Thoracic aorta: There is advanced atherosclerotic calcification of the thoracic aorta, which is sharad l in caliber and demonstrates bovine variant arch anatomy. Heart: The heart is mildly enlarged and without pericardial effusion. The coronary arteries are dense ly calcified. Lungs and pleural spaces: Evaluation of the lung parenchyma is degraded by motion artifact. Mild emph ysematous change is noted. There is elevation of the left hemidiaphragm with dense left basilar conso lidation and a trace left pleural effusion. Dense consolidation is also seen in the lingula. Milder p atchy airspace consolidation is seen in the superior segment of the left lower lobe and the posterior left upper lobe. Segmental atelectasis is noted in the right middle lobe. There is right basilar sca rring/atelectasis. No right pleural effusion is identified. The trachea and central airways are clear . Mediastinum: There are scattered subcentimeter mediastinal lymph nodes. These are not pathologically enlarged by size criteria. Magda: Not well assessed without IV contrast. Axillae: There is no axillary lymphadenopathy. Bony thorax: The skeletal structures are osteopenic. No lytic or blastic lesions are identified. Dege nerative change is noted throughout the thoracic spine and in the shoulders. ABDOMEN AND PELVIS: Liver: The unenhanced liver is normal in size, contour, and attenuation. There is no intrahepatic or ductal dilatation. Scattered hepatic cysts measure up to 5.7 cm. Additional subcentimeter hypodensiti es also likely represent cysts but are too small for definitive characterization. Gallbladder: Cholelithiasis is noted. The gallbladder is otherwise normal in appearance. Spleen: Normal in size and attenuation. Pancreas: The unenhanced pancreas is atrophic and grossly unremarkable. Adrenal glands: Mild nodularity of the left adrenal gland is similar to previous. The right adrenal g land is normal in appearance.. Kidneys: The left kidney is not identified and presumed surgically absent. The right kidney demonstra angus cortical atrophy and is without hydronephrosis. No right renal calculi are identified. There is n o evidence of contour deforming mass lesion. Abdominal vasculature: The abdominal aorta is normal in course and caliber noting advanced atheroscle rotic calcification. Bowel: There is rectosigmoid fecal impaction. Wall thickening with surrounding inflammatory change is seen involving the rectosigmoid colon. No bowel obstruction is identified. There is mild/moderate co lonic diverticulosis without CT evidence of acute diverticulitis. Colonic interposition is incidental ly noted. Moderate fecal retention is noted in the right colon. The appendix is not identified. Peritoneum: There is no intraperitoneal free air or abdominal ascites. Lymphadenopathy: Prominent mesenteric lymph nodes adjacent to the left colon up to 13 mm in short axi s. Pelvic viscera: The bladder is decompressed around a Craig catheter and not evaluated. The prostate g land is diminutive versus surgically absent. Surgical clips are scattered throughout the pelvis. Ther e is a fat-containing right inguinal hernia. Skeletal structures: The skeletal structures are osteopenic. There is mild to moderate lumbosacral sp ondylosis. No lytic or blastic lesions are seen. IMPRESSION: 1. Suboptimal examination without IV contrast. The examination is also compromised by streak and renee on artifact. 2. Mild cardiomegaly and emphysema. 3. There is patchy airspace consolidation throughout the left lung with dense consolidation at the le ft lung base and a trace left pleural effusion. The appearance is typical for pneumonia/aspiration pn eumonitis. Clinical correlation will be required and radiographic follow-up to resolution is recommen ded. 4. There is rectosigmoid fecal impaction. There is wall thickening of the rectum and sigmoid colon wi th surrounding inflammation, and the appearance is consistent with a proctocolitis. This is likely st ercoral given the degree of fecal impaction. Clinical correlation will be required. 5. Moderate fecal retention is noted in the right colon. There is no bowel obstruction. 6. Colonic diverticulosis without CT evidence of acute diverticulitis. 7. Cholelithiasis. 8. Status post left nephrectomy. 9. Additional findings as above. Electronically signed by: Tab Frye M.D. 10/03/2018 6:30 PM
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
[2018-10-03] MEDS ORDERED: MoRPHine SULFATE 2 MG/ML CARP IV PRN (21:35)
[2018-10-03] MEDS ORDERED: PIPERACILLIN/TAZOBACTAM 4.5 GM in DEXTROSE 5% 100 ML IV STA (21:35)
[2018-10-03] MEDS ORDERED: VANCOMYCIN CONSULT ACTIVE PRN (21:35)
[2018-10-03] MEDS ORDERED: BISACODYL 10 MG SUPP PR PRN (21:35)
[2018-10-03] MEDS ORDERED: AMIODARONE 200 MG TAB PO SCH (21:35)
[2018-10-03] MEDS ORDERED: ONDANSETRON INJ 2 MG/ML 2 ML VIAL IV PRN (21:35)
[2018-10-03] MEDS ORDERED: LORazepam 0.5 MG/1 ML VIAL IV PRN (21:35)
[2018-10-03] MEDS ORDERED: ACETAMINOPHEN 500 MG TAB PO PRN (21:35)
[2018-10-03] MEDS ORDERED: ATROPINE SULFATE 1% OP SOLN 2 ML BTL OP PRN (21:35)
[2018-10-03] MEDS ORDERED: METOPROLOL TARTRATE 1 MG/ML VIAL IV STA (21:43)
[2018-10-03] MEDS: D5W AND 1/2NSS 1,000 ML IV SCH (22:27)
[2018-10-03] MEDS ORDERED: VANCOMYCIN HCL 1,750 MG in SODIUM CHLORIDE 0.9% 500 ML IV ONE (22:30)
--- NOTE | 2018-10-03 22:41 | Pharmacy Report ---
Pharmacy Abx Initial Consult - Date of Service October 03, 2018 - Pharmacy Dosing Scope Date of Consult: 10/03/18 Consultation requested by: Dr. Shankar Pharmacy is consulted to initiate Vancomycin and Zosyn IV dosing therapy, order appropriate labs and adjust drug dose/frequency. - Subjective The patient is a 82 year old M admitted on 10/03/18 20:48. - Objective Height: 5 ft 6 in Weight: 66.7 kg Vital Signs (Past 12hrs): Vital Signs Temp Pulse Pulse Resp BP BP BP 10/03/18 22:03 70 10/03/18 21:56 37.2 C 70 28 H 183/96 H 176/83 H 10/03/18 21:20 67 24 10/03/18 21:18 61 19 114/66 10/03/18 21:10 60 19 10/03/18 21:00 37.1 C 68 19 10/03/18 20:50 62 20 10/03/18 20:40 62 20 10/03/18 20:30 68 22 10/03/18 20:20 72 25 H 10/03/18 20:10 70 22 10/03/18 20:00 69 23 10/03/18 19:50 68 21 10/03/18 19:40 71 22 10/03/18 19:30 77 24 10/03/18 19:20 69 22 10/03/18 19:10 66 22 10/03/18 19:00 67 21 10/03/18 18:50 69 23 10/03/18 18:40 68 23 10/03/18 18:30 64 21 10/03/18 18:20 68 22 10/03/18 18:15 68 67 23 122/69 122/69 10/03/18 18:12 72 24 10/03/18 17:40 72 23 10/03/18 17:30 74 26 H 10/03/18 17:20 72 24 10/03/18 17:15 10/03/18 17:10 78 28 H 10/03/18 17:05 37.6 C H 84 26 H 154/86 H 10/03/18 17:00 81 27 H 10/03/18 16:56 82 27 H 154/86 H Pulse Ox 10/03/18 22:03 10/03/18 21:56 91 10/03/18 21:20 93 10/03/18 21:18 92 10/03/18 21:10 94 10/03/18 21:00 94 10/03/18 20:50 93 10/03/18 20:40 93 10/03/18 20:30 93 10/03/18 20:20 93 10/03/18 20:10 94 10/03/18 20:00 96 10/03/18 19:50 94 10/03/18 19:40 91 10/03/18 19:30 90 10/03/18 19:20 95 10/03/18 19:10 96 10/03/18 19:00 95 10/03/18 18:50 96 10/03/18 18:40 97 10/03/18 18:30 95 10/03/18 18:20 95 10/03/18 18:15 95 10/03/18 18:12 96 10/03/18 17:40 97 10/03/18 17:30 97 10/03/18 17:20 96 10/03/18 17:15 96 10/03/18 17:10 96 10/03/18 17:05 94 10/03/18 17:00 94 10/03/18 16:56 96 Lab Results (24hrs): Laboratory Tests (24 Hours) 10/03/18 10/03/18 16:40 16:40 WBC 13.73 H Neut # (Auto) 10.65 H Creatinine 1.18 Est Cr Clr Drug Dosing 46.1 Micro Results: 10/03/18 17:27 Blood Culture - Pending Blood 10/03/18 17:15 Blood Culture - Pending Blood - Risk Factors for Resistance * Resident in a skilled nursing or extended-care facility - Assessment & Plan Assessment 82 year old M brought from Nursing facility via EMS. Around lunchtime today, the patient suddenly became lethargic and developed a fever. Staff at the skilled nursing believe he may have aspirated a few days ago. Chest XRAY/CT show consolidation in left lower lobe. Blood cultures pending MRSA Nasal swab pending. Patient febrile in ED (37.6), now afebrile. WBC 13.73. Plan Vancomycin and Zosyn for empiric treatment of pneumonia. Vancomycin IV * Estimated PK Parameters: Vd 0.7 L/kg, Meir 0.043 hr-1, t1/2 16 hr * Loading dose: 1750 mg (26 mg/kg) * Maintenance dose: 1000 mg IV (15 mg/kg) every 20 hours * Goal trough level : 15 to 20 mcg/mL * Due to extended dosing interval, will hold off on ordering a level. May be able to deescalate. Piperacillin/tazobactam * 4.5 g bolus administered over 30 minutes, then 3.375 g IV extended infusion every 8 hours for CrCl greater than 20 mL/min. Pharmacy will continue to follow and will adjust dose/frequency as necessary. Thank you.
[2018-10-03] MEDS: ALBUT/IPRATROP 3MG/0.5MG NEB 3 ML VIAL NEB SCH (23:14)
[2018-10-03] MEDS: methylPREDNISolone 60 MG in SYRINGE 0 ML IV SCH (23:28)
[2018-10-04] MEDS: METOPROLOL TARTRATE 1 MG/ML VIAL IV SCH ×3 (00:36→12:00)
[2018-10-04] MEDS: PIPERACILLIN/TAZOBACTAM 3.375 GM in DEXTROSE 5% 100 ML IV SCH ×3 (00:37→15:34)
[2018-10-04] MEDS: ALBUT/IPRATROP 3MG/0.5MG NEB 3 ML VIAL NEB SCH ×4 (03:29→15:14)
[2018-10-04] MEDS: D5W AND 1/2NSS 1,000 ML IV SCH ×2 (05:54→13:42)
[2018-10-04 06:00] LABS: Hematocrit (blood only) 38.3 % (42-52); Hemoglobin 12.5 g/dL (14.0-18.0); Immature Granulocytes # (auto) 0.03 K/uL (0.00-0.02); Immature Granulocytes % (auto) 0.3 %; Lymphocytes # (auto) 0.45 K/uL (1.2-3.4); Lymphocytes % (auto) 4.8 %; Mean Corpuscular Hgb Conc 32.6 g/dL (32-36); Mean Platelet Volume 9.7 fL (7.4-10.4); Monocytes # (auto) 0.24 K/uL (0.11-0.59); Monocytes % (auto) 2.6 %; Neutrophils # (auto) 8.63 K/uL (1.4-6.5); Neutrophils % (auto) 92.3 %; Platelet Count 223 K/uL (130-400); RDW Coefficient of Variation 14.3 % (11.5-14.5); RDW Standard Deviation 49.1 fL (36.4-46.3); Red Blood Count 4.12 M/uL (4.7-6.1); White Blood Count 9.35 K/uL (4.8-10.8)
[2018-10-04 06:10] LABS: INR 1.1 (0.9-1.1); Partial Thromboplastin Ratio 1.2; Partial Thromboplastin Time 31.8 Seconds (21.0-31.0); Prothrombin Time 10.9 Seconds (9.0-12.0)
[2018-10-04] MEDS: methylPREDNISolone 60 MG in SYRINGE 0 ML IV SCH ×2 (06:20→14:27)
[2018-10-04 06:37] LABS: BUN Creatinine Ratio 38.2 (10-20); Calcium 8.3 mg/dl (8.5-10.1); Est GFR (African American) 83.9; Est GFR (Non-African American) 72.4; Potassium 3.5 mmol/L (3.5-5.1)
[2018-10-04] MEDS ORDERED: ENOXAPARIN INJ 40 MG/0.4 ML SYR SQ SCH (09:00)
--- NOTE | 2018-10-04 16:19 | Hospitalist Progress Note ---
Date of Service October 04, 2018 Assessment & Plan (1) Pneumonia: CT chest on 10/03 showed consolidation throughout the left lung with dense consolidation at the left lung base and a trace left pleural effusion - Likely aspiration. - Continue Zosyn - Follow cultures - Aspiration precautions - Continue IV fluids, pain and agitation control. (2) Colitis: CT a/p on 10/03 showed rectosigmoid fecal impaction with stercoral colitis. - Single enema to try to improve impaction; family reports patient would not want invasive procedures, so will not consult surgery despite colitis. (3) Altered mental status: Metabolic encephalopathy from pneumonia and dehydration. - Monitor mental status - Presently only localizes pain. GCS of 8. (4) Dementia: Very advanced. At baseline, per family, he does interact and is somewhat verbal. - Monitor (5) Paroxysmal atrial fibrillation: EKG on admission showed normal sinus. On beta-ila & amiodarone for rate control. No anticoagulation. - Holding all oral meds at present. (6) DVT prophylaxis: SCDs - Low risk per admission calculator Subjective Unresponsive except to localizing pain. Review of Systems Review of Systems: Unobtainable due to cognitive status Physical Exam Constitutional: WD/WN, vitals as above + acute distress, + cachectic and + lethargic Eyes: EOM intact bilaterally; no conjunctival abnormality ENMT: external ear and nose normal, oropharynx normal Neck: trachea midline, no thyromegaly normal visual inspection Respiratory: + labored breathing; no respiratory distress Auscultation: + rales and + rhonchi Cardiovascular: RRR, no murmur, no edema Gastrointestinal (Abdomen): Inspection/Auscultation: abdomen normal to inspection; abdomen not distended Musculoskeletal: no cyanosis or clubbing, extremities motor strength 5/5 Skin: no rashes, warm and dry Neurologic: moves all extremities and awake Psychiatric: Orientation: alert, oriented to person and cooperative Results & Data Vital Signs (Past 12 Hours) Vital Signs Temp Pulse Pulse Pulse Pulse Resp BP 10/04/18 15:15 68 18 10/04/18 15:01 37.0 C 71 20 145/72 H 10/04/18 12:00 65 10/04/18 11:39 36.9 C 71 20 10/04/18 10:57 60 16 10/04/18 08:00 63 10/04/18 07:08 37.0 C 57 L 25 H 10/04/18 07:05 58 L 20 10/04/18 05:45 68 10/04/18 05:43 10/04/18 05:23 10/04/18 05:22 10/04/18 04:51 10/04/18 04:46 10/04/18 04:38 BP Pulse Ox 10/04/18 15:15 95 10/04/18 15:01 95 10/04/18 12:00 10/04/18 11:39 133/59 L 95 10/04/18 10:57 94 10/04/18 08:00 10/04/18 07:08 122/53 L 97 10/04/18 07:05 97 10/04/18 05:45 114/70 10/04/18 05:43 96 10/04/18 05:23 80 L 10/04/18 05:22 78 L 10/04/18 04:51 92 10/04/18 04:46 77 L 10/04/18 04:38 91 (1) Pneumonia Laterality: left Lung location: lower lobe of lung Pneumonia type: due to unspecified organism Qualified Code(s): J18.1 - Lobar pneumonia, unspecified organism (2) Altered mental status Altered mental status type: unspecified Qualified Code(s): R41.82 - Altered mental status, unspecified
[2018-10-04] MEDS ORDERED: SOD PHOSPHATE/SOD BIPHOSPHATE ENEMA 132 ML BTL PR STA (16:30)
[2018-10-04] MEDS ORDERED: ALBUT/IPRATROP 3MG/0.5MG NEB 3 ML VIAL NEB PRN (17:07)
[2018-10-04] MEDS ORDERED: VANCOMYCIN HCL 1,000 MG in SODIUM CHLORIDE 0.9% 250 ML IV SCH (18:00)
[2018-10-05] MEDS: PIPERACILLIN/TAZOBACTAM 3.375 GM in DEXTROSE 5% 100 ML IV SCH ×4 (00:06→23:55)
[2018-10-05] MEDS: D5W AND 1/2NSS 1,000 ML IV SCH (00:42)
[2018-10-05 05:55] LABS: Hematocrit (blood only) 34.3 % (42-52); Hemoglobin 11.3 g/dL (14.0-18.0); Mean Corpuscular Hgb Conc 32.9 g/dL (32-36); Mean Corpuscular Volume 92.5 fL (80-100); Mean Platelet Volume 9.5 fL (7.4-10.4); Platelet Count 187 K/uL (130-400); RDW Coefficient of Variation 14.2 % (11.5-14.5); RDW Standard Deviation 47.8 fL (36.4-46.3); Red Blood Count 3.71 M/uL (4.7-6.1); White Blood Count 10.63 K/uL (4.8-10.8)
[2018-10-05 06:39] LABS: BUN Creatinine Ratio 26.7 (10-20); Calcium 8.3 mg/dl (8.5-10.1); Creatinine Clr Calc Pharmacy 55.3 ml/min; Est GFR (African American) 88.3; Est GFR (Non-African American) 76.2; Magnesium 2.3 mg/dl (1.8-2.4); Potassium 3.4 mmol/L (3.5-5.1)
[2018-10-05] MEDS: POTASSIUM CHLORIDE 40 MEQ in DEXTROSE 5% 1,000 ML IV SCH ×3 (09:25→20:59)
--- NOTE | 2018-10-05 14:56 | Hospitalist Progress Note ---
Date of Service October 05, 2018 Assessment & Plan (1) Pneumonia: CT chest on 10/03 showed consolidation throughout the left lung with dense consolidation at the left lung base and a trace left pleural effusion - Likely aspiration. - Continue Zosyn - Follow cultures - Aspiration precautions - Continue IV fluids, pain and agitation control. - On 10/05, mild improvement. Continue plan and monitor for another 24 hours. (2) Hypernatremia: Na of 146 on admission. - On 10/05, Na still 147 - Switched to D5w from 1/2 NS. - Monitor Na and volume status (3) Colitis: CT a/p on 10/03 showed rectosigmoid fecal impaction with stercoral colitis. - Single enema to try to improve impaction; family reports patient would not want invasive procedures, so will not consult surgery despite colitis. - Few BMs after his enema. Per chart, they are all loose, so unclear whether this is obstruction diarrhea vs. actual release of impaction. - Discussed NG tube with family for laxative from above; declined at this time. Hold further enemas for now. (4) Altered mental status: Metabolic encephalopathy from pneumonia and dehydration. - Monitor mental status - Presently only localizes pain. GCS of 8. (5) Dementia: Very advanced. At baseline, per family, he does interact and is somewhat verbal (mostly says "Oh" or occasional few words). At baseline, can sit in chair and move utensils, but not really walking any more. - Monitor (6) Paroxysmal atrial fibrillation: EKG on admission showed normal sinus. On beta-ila & amiodarone for rate control. No anticoagulation. - Holding all oral meds at present. (7) DVT prophylaxis: SCDs - Low DVT risk per admission calculator Subjective Some improvement today. More facial expressions and even said "Oh" to the son when he said hello to his father. However, did not open his eyes. Review of Systems Review of Systems: Unobtainable due to cognitive status Physical Exam Constitutional: WD/WN, vitals as above + acute distress, + cachectic and + lethargic ENMT: external ear and nose normal, oropharynx normal Neck: trachea midline, no thyromegaly normal visual inspection Respiratory: + labored breathing; no respiratory distress Auscultation: + rales and + rhonchi Cardiovascular: RRR, no murmur, no edema Gastrointestinal (Abdomen): Inspection/Auscultation: abdomen normal to inspection; abdomen not distended Musculoskeletal: no cyanosis or clubbing, extremities motor strength 5/5 Skin: no rashes, warm and dry Neurologic: moves all extremities and awake Psychiatric: Orientation: + not alert Eye Contact: + poor eye contact Results & Data Vital Signs (Past 12 Hours) Vital Signs Temp Pulse Resp BP Pulse Ox 10/05/18 08:18 36.4 C L 60 20 154/79 H 92 (1) Pneumonia Laterality: left Lung location: lower lobe of lung Pneumonia type: due to u nspecified organism Qualified Code(s): J18.1 - Lobar pneumonia, unspecified organism (2) Altered mental status Altered mental status type: unspecified Qualified Code(s): R41.82 - Altered mental status, unspecified
[2018-10-06 06:41] LABS: Hematocrit (blood only) 35.2 % (42-52); Hemoglobin 11.8 g/dL (14.0-18.0); Mean Corpuscular Hgb Conc 33.5 g/dL (32-36); Mean Corpuscular Volume 90.5 fL (80-100); Mean Platelet Volume 9.5 fL (7.4-10.4); Platelet Count 241 K/uL (130-400); RDW Standard Deviation 46.7 fL (36.4-46.3); Red Blood Count 3.89 M/uL (4.7-6.1)
[2018-10-06] MEDS: POTASSIUM CHLORIDE 40 MEQ in DEXTROSE 5% 1,000 ML IV SCH ×2 (07:10→17:00)
[2018-10-06 07:16] LABS: BUN Creatinine Ratio 24.7 (10-20); Calcium 8.2 mg/dl (8.5-10.1); Creatinine Clr Calc Pharmacy 59.8 ml/min; Est GFR (African American) 93.6; Est GFR (Non-African American) 80.8; Potassium 3.8 mmol/L (3.5-5.1)
[2018-10-06] MEDS: PIPERACILLIN/TAZOBACTAM 3.375 GM in DEXTROSE 5% 100 ML IV SCH ×2 (07:41→15:41)
--- NOTE | 2018-10-06 23:39 | Hospitalist Progress Note ---
Date of Service October 06, 2018 Assessment & Plan (1) Pneumonia: CT chest on 10/03 showed consolidation throughout the left lung with dense consolidation at the left lung base and a trace left pleural effusion - Likely aspiration. - Continue Zosyn - Follow cultures - Aspiration precautions - Continue IV fluids, pain and agitation control. - On 10/06, appears back to baseline. Patient quality of life at [facility] appears poor. Unable to reach family today. Continue plan and monitor for another 24 hours. Patient will likely need to be discharged back to hospice. (2) Aspiration into airway: (3) Altered mental status: Metabolic encephalopathy from pneumonia and dehydration. - Monitor mental status - Presently only localizes pain. GCS of 8. (4) Dementia: Very advanced. At baseline, per family, he does interact and is somewhat verbal (mostly says "Oh" or occasional few words). At baseline, can sit in chair and move utensils, but not really walking any more. - Monitor (5) Asthma: (6) Paroxysmal atrial fibrillation: EKG on admission showed normal sinus. On beta-ila & amiodarone for rate control. No anticoagulation. - Holding all oral meds at present. Spent 35 minutes in management of patient. (7) History of cholecystectomy: (8) History of nephrectomy: (9) Hypertension: Subjective 82 yo male with advanced dementia. He does not provide signifcant history. He appears to be back to his baseline as he is mainly bedridden and non verbal. He was on hospice at [facility]. Review of Systems Review of Systems: Unobtainable due to mental health condition Physical Exam Physical Exam: Constitutional: WD/WN, vitals as above in no acute distress ENMT: external ear and nose normal, oropharynx normal Neck: trachea midline, no thyromegaly normal visual inspection Respiratory: comfortable breating on 3 liters nasal cannula, no respiratory distress Auscultation: + rales and + rhonchi Cardiovascular: RRR, no murmur, no edema Gastrointestinal (Abdomen): Inspection/Auscultation: abdomen normal to inspection; abdomen not distended Musculoskeletal: no cyanosis or clubbing, extremities motor strength 5/5 Skin: no rashes, warm and dry Neurologic: moves all extremities and awake Psychiatric: Orientation: + not alert Eye Contact: + poor eye contact Results & Data Vital Signs (Past 12 Hours) Vital Signs Temp Pulse Resp BP Pulse Ox 10/06/18 15:09 37.3 C 66 16 172/85 H 95 (1) Aspiration into airway Encounter type: initial encounter Qualified Code(s): T17.908A - Unspecified foreign body in respiratory tract, part unspecified causing other injury, initial encounter (2) Altered mental status Altered mental status type: unspecified Qualified Code(s): R41.82 - Altered mental status, unspecified (3) Pneumonia Laterality: left Lung location: lower lobe of lung Pneumonia type: due to unspecified organism Qualified Code(s): J18.1 - Lobar pneumonia, unspecified organism
[2018-10-07] MEDS: PIPERACILLIN/TAZOBACTAM 3.375 GM in DEXTROSE 5% 100 ML IV SCH ×2 (00:17→07:50)
[2018-10-07] MEDS: POTASSIUM CHLORIDE 40 MEQ in DEXTROSE 5% 1,000 ML IV SCH ×3 (04:01→23:10)
[2018-10-07 06:13] LABS: Creatinine Clr Calc Pharmacy 58.4 ml/min; Est GFR (African American) 92.7
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
[2018-10-07] MEDS: cefTRIAXone SODIUM 1,000 MG in DEXTROSE 5% 50 ML IV SCH (16:52)
--- NOTE | 2018-10-07 22:44 | Hospitalist Progress Note ---
Date of Service October 07, 2018 Assessment & Plan (1) Pneumonia: CT chest on 10/03 showed consolidation throughout the left lung with dense consolidation at the left lung base and a trace left pleural effusion - Likely aspiration. - Continue Zosyn - Follow cultures - Aspiration precautions - Continue IV fluids, pain and agitation control. - On 10/06, appears back to baseline. Patient quality of life at facilty appears poor. Consulted palliative care: will get POLST form completed prior to discharge. Will discharge to different hospice facilty likely SNF (2) Aspiration into airway: (3) Altered mental status: Metabolic encephalopathy from pneumonia and dehydration. - Monitor mental status - Presently only localizes pain. GCS of 8. (4) Dementia: Very advanced. At baseline, per family, he does interact and is somewhat verbal (mostly says "Oh" or occasional few words). At baseline, can sit in chair and move utensils, but not really walking any more. - Monitor (5) Asthma: (6) Paroxysmal atrial fibrillation: EKG on admission showed normal sinus. On beta-ila & amiodarone for rate control. No anticoagulation. - Holding all oral meds at present. Spent 25 minutes in management of patient. (7) History of cholecystectomy: (8) History of nephrectomy: (9) Hypertension: Subjective Patient appears comfortable. Does not verbalize any complaints, does open eyes to verbal stimuli. Review of Systems Review of Systems: Unobtainable due to mental health condition Physical Exam Physical Exam: Constitutional: WD/WN, vitals as above in no acute distress ENMT: external ear and nose normal, oropharynx normal Neck: trachea midline, no thyromegaly normal visual inspection Respiratory: comfortable breating on 3 liters nasal cannula, no respiratory distress Auscultation: + rales and + rhonchi Cardiovascular: RRR, no murmur, no edema Gastrointestinal (Abdomen): Inspection/Auscultation: abdomen normal to inspection; abdomen not distended Musculoskeletal: no cyanosis or clubbing, extremities motor strength 5/5 Skin: no rashes, warm and dry Neurologic: moves all extremities and awake Psychiatric: Orientation: + not alert Eye Contact: + poor eye contact Results & Data Vital Signs (Past 12 Hours) Vital Signs Temp Pulse Resp BP Pulse Ox 10/07/18 15:32 36.5 C 75 20 156/87 H 90 10/07/18 11:17 91 (1) Aspiration into airway Encounter type: initial encounter Qualified Code(s): T17.908A - Unspecified foreign body in respiratory tract, part unspecified causing other injury, initial encounter (2) Altered mental status Altered mental status type: unspecified Qualified Code(s): R41.82 - Altered mental status, unspecified (3) Pneumonia Laterality: left Lung location: lower lobe of lung Pneumonia type: due to unspecified organism Qualified Code(s): J18.1 - Lobar pneumonia, unspecified organism
[2018-10-08 08:25] LABS: Creatinine Clr Calc Pharmacy 59.8 ml/min; Est GFR (African American) 93.6; Est GFR (Non-African American) 80.8
[2018-10-08] MEDS: POTASSIUM CHLORIDE 40 MEQ in DEXTROSE 5% 1,000 ML IV SCH ×2 (09:15→19:20)
[2018-10-08] MEDS: cefTRIAXone SODIUM 1,000 MG in DEXTROSE 5% 50 ML IV SCH (15:34)
--- NOTE | 2018-10-08 16:11 | Palliative Care Progress Note ---
Date of Service October 08, 2018 Assessment & Plan (1) Goals of care, counseling/discussion: -Patient seen in room 410 this morning. he is nonverbal at baseline. Moves all extremities and opens eyes. -Goal is for comfort and to be discharged to SNF on hospice care. Case management is coordinating. -No symptom management needs at this time. -FAST score 7e. -PPS 20%. -Will continue to follow. (2) Aspiration into airway: (3) Pneumonia: (4) Altered mental status: (5) Colitis: (6) Dementia: Subjective Patient appears comfortable today. Opens eyes but no verbal response. Review of Systems 2 Review of Systems: Unobtainable due to cognitive status Physical Exam Constitutional: + cachectic and + frail appearing; no acute distress ENMT: external ear and nose normal, oropharynx normal Neck: normal visual inspection Respiratory: no respiratory distress Auscultation: + rhonchi Cardiovascular: RRR, no murmur, no edema Gastrointestinal (Abdomen): Inspection/Auscultation: abdomen normal to inspection; abdomen not distended Skin: no mottling Neurologic: moves all extremities and awake Psychiatric: Orientation: + not oriented x 3 (nonverbal at baseline) Results & Data Vital Signs (Past 12 Hours) Vital Signs Temp Pulse Resp BP Pulse Ox 10/08/18 14:59 37.0 C 88 20 157/76 H 94 10/08/18 07:37 37.0 C 62 20 144/83 H 93 Time Spent Midlevel 25 minutes with >50% of time spent at bedside with patient and IDT discussing case and hospice care. (1) Aspiration into airway Encounter type: initial encounter Qualified Code(s): T17.908A - Unspecified foreign body in respiratory tract, part unspecified causing other injury, initial encounter (2) Pneumonia Laterality: left Lung location: lower lobe of lung Pneumonia type: due to unspecified organism Qualified Code(s): J18.1 - Lobar pneumonia, unspecified organism (3) Altered mental status Altered mental status type: unspecified Qualified Code(s): R41.82 - Altered mental status, unspecified
--- NOTE | 2018-10-08 23:47 | Hospitalist Progress Note ---
Date of Service October 08, 2018 Assessment & Plan (1) Pneumonia: CT chest on 10/03 showed consolidation throughout the left lung with dense consolidation at the left lung base and a trace left pleural effusion - Likely aspiration. - Continue Zosyn - Follow cultures - Aspiration precautions - Continue IV fluids, pain and agitation control. - On 10/06, appears back to baseline. Patient quality of life at facilty appears poor. Consulted palliative care: will get POLST form completed prior to discharge. Will discharge to different hospice facilty likely SNF (2) Aspiration into airway: (3) Altered mental status: Metabolic encephalopathy from pneumonia and dehydration. - Monitor mental status - Presently only localizes pain. GCS of 8. (4) Dementia: Very advanced. At baseline, per family, he does interact and is somewhat verbal (mostly says "Oh" or occasional few words). At baseline, can sit in chair and move utensils, but not really walking any more. - Monitor (5) Asthma: (6) Paroxysmal atrial fibrillation: EKG on admission showed normal sinus. On beta-ila & amiodarone for rate control. No anticoagulation. - Holding all oral meds at present. Spent 20 minutes in management of patient. (7) History of cholecystectomy: (8) History of nephrectomy: (9) Hypertension: Subjective 82 yo male does not verbalize any complaints Review of Systems Review of Systems: Unobtainable due to mental health condition Physical Exam Physical Exam: Constitutional: WD/WN, vitals as above in no acute distress ENMT: external ear and nose normal, oropharynx normal Neck: trachea midline, no thyromegaly normal visual inspection Respiratory: comfortable breating on 3 liters nasal cannula, no respiratory distress Auscultation: + rales and + rhonchi Cardiovascular: RRR, no murmur, no edema Gastrointestinal (Abdomen): Inspection/Auscultation: abdomen normal to inspection; abdomen not distended Musculoskeletal: no cyanosis or clubbing, extremities motor strength 5/5 Skin: no rashes, warm and dry Neurologic: moves all extremities and awake Psychiatric: Orientation: + not alert Eye Contact: + poor eye contact Results & Data Vital Signs (Past 12 Hours) Vital Signs Temp Pulse Pulse Resp BP Pulse Ox 10/08/18 23:02 36.8 C 78 20 138/82 92 10/08/18 14:59 37.0 C 88 20 157/76 H 94 (1) Pneumonia Laterality: left Lung location: lower lobe of lung Pneumonia type: due to unspecified organism Qualified Code(s): J18.1 - Lobar pneumonia, unspecified organism (2) Aspiration into airway Encounter type: initial encounter Qualified Code(s): T17.908A - Unspecified foreign body in respiratory tract, part unspecified causing other injury, initial encounter (3) Altered mental status Altered mental status type: unspecified Qualified Code(s): R41.82 - Altered mental status, unspecified
[2018-10-09] MEDS: POTASSIUM CHLORIDE 40 MEQ in DEXTROSE 5% 1,000 ML IV SCH ×2 (04:54→15:14)
[2018-10-09] MEDS: cefTRIAXone SODIUM 1,000 MG in DEXTROSE 5% 50 ML IV SCH (15:43)
--- NOTE | 2018-10-09 17:00 | Palliative Care Progress Note ---
Date of Service October 09, 2018 Assessment & Plan (1) Goals of care, counseling/discussion: Patient continues on IV Rocephin with comfort as goal (2) Aspiration into airway: Patient is n.p.o., on IV Rocephin (3) Pneumonia: Continue IV Rocephin (4) Altered mental status: Unresponsive to voice, does move lower extremities in response to touch, does not open eyes or follow commands (5) Colitis: No grimace on palpation of the abdomen on exam today (6) Dementia: End-stage dementia Subjective Patient unresponsive to voice, did not open eyes on exam. Did move lower extremities in response to touch. No family or friends at bedside Patient appears comfortable Review of Systems Review of Systems: Unable to obtain due to altered mental status Physical Exam Physical Exam: PE: Patient appears comfortable at rest, does not respond to voice, did move lower extremities during exam and response to touch Patient appears comfortable, has not required any PRN medications for pain or discomfort, continues on IV Rocephin Respiratory: Unlabored CV: Regular rate, no edema Abdomen: Soft, no grimace with palpation Extremities: Feet cool to touch to the level of the ankle, no mottling Neuro: Unresponsive Results & Data Vital Signs (Past 12 Hours) Vital Signs Temp Pulse Resp BP Pulse Ox 10/09/18 15:31 98.8 F 93 H 20 128/84 95 10/09/18 07:00 98.1 F 89 20 149/82 H 95 Time Spent Attending Total time spent 25 minutes with greater than 50% of the time spent at bedside assessing patient's comfort and collaborating with staff regarding care (1) Aspiration into airway Encounter type: initial encounter Qualified Code(s): T17.908A - Unspecified foreign body in respiratory tract, part unspecified causing other injury, initial encounter (2) Pneumonia Laterality: left Lung location: lower lobe of lung Pneumonia type: due to unspecified organism Qualified Code(s): J18.1 - Lobar pneumonia, unspecified organism (3) Altered mental status Altered mental status type: unspecified Qualified Code(s): R41.82 - Altered mental status, unspecified
--- NOTE | 2018-10-09 22:16 | Hospitalist Progress Note ---
Date of Service October 09, 2018 Assessment & Plan (1) Pneumonia: CT chest on 10/03 showed consolidation throughout the left lung with dense consolidation at the left lung base and a trace left pleural effusion - Likely aspiration. - Continue Zosyn - Follow cultures - Aspiration precautions - Continue IV fluids, pain and agitation control. - On 10/06, appears back to baseline. Patient quality of life at facilty appears poor. Consulted palliative care: will get POLST form completed prior to discharge. Will discharge to different hospice facility likely SNF Plan for discharge in AM on Saturday. (2) Aspiration into airway: (3) Altered mental status: Metabolic encephalopathy from pneumonia and dehydration. - Monitor mental status - Presently only localizes pain. GCS of 8. (4) Dementia: Very advanced. At baseline, per family, he does interact and is somewhat verbal (mostly says "Oh" or occasional few words). At baseline, can sit in chair and move utensils, but not really walking any more. - Monitor (5) Asthma: (6) Paroxysmal atrial fibrillation: EKG on admission showed normal sinus. On beta-ila & amiodarone for rate control. No anticoagulation. - Holding all oral meds at present. Spent 20 minutes in management of patient. (7) History of cholecystectomy: (8) History of nephrectomy: (9) Hypertension: Subjective Patient does not verbalize any complaints. But appears to be comfortable. Review of Systems Review of Systems: Unobtainable due to mental health condition Physical Exam Physical Exam: Constitutional: WD/WN, vitals as above in no acute distress ENMT: external ear and nose normal, oropharynx normal Neck: trachea midline, no thyromegaly normal visual inspection Respiratory: comfortable breating on 3 liters nasal cannula, no respiratory distress Auscultation: + rales and + rhonchi Cardiovascular: RRR, no murmur, no edema Gastrointestinal (Abdomen): Inspection/Auscultation: abdomen normal to inspection; abdomen not distended Musculoskeletal: no cyanosis or clubbing, extremities motor strength 5/5 Skin: no rashes, warm and dry Neurologic: moves all extremities and awake Psychiatric: Orientation: + not alert Eye Contact: + poor eye contact Results & Data Vital Signs (Past 12 Hours) Vital Signs Temp Pulse Resp BP Pulse Ox 10/09/18 15:31 37.1 C 93 H 20 128/84 95 (1) Aspiration into airway Encounter type: initial encounter Qualified Code(s): T17.908A - Unspecified foreign body in respiratory tract, part unspecified causing other injury, initial encounter (2) Altered mental status Altered mental status type: unspecified Qualified Code(s): R41.82 - Altered mental status, unspecified (3) Pneumonia Laterality: left Lung location: lower lobe of lung Pneumonia type: due to unspecified organism Qualified Code(s): J18.1 - Lobar pneumonia, unspecified organism
[2018-10-09 23:00] VITALS: TEMP 97.7
[2018-10-10] MEDS: POTASSIUM CHLORIDE 40 MEQ in DEXTROSE 5% 1,000 ML IV SCH ×2 (01:11→11:14)
[2018-10-10 07:10] VITALS: O2SAT 97
[2018-10-10 11:17] VITALS: BP 133/59; PULSE 91
[2018-10-10] MEDS: cefTRIAXone SODIUM 1,000 MG in DEXTROSE 5% 50 ML IV SCH (13:10)
--- NOTE | 2018-10-17 07:46 | Discharge Summary ---
Date of Service October 10, 2018 Admission HPI Per Admitting Provider 82-year-old male with history of high blood pressure paroxysmal A. fib asthma left nephrectomy and advanced dementia presents with concern for fever and hypoxia with increased confusion from [facility]. This morning he had his breakfast and was reportedly well but son got a call around noontime saying he probably had a couple hours to live and and had fluid in his lungs from assisted. He was brought to the emergency room. He was satting 76% on room air. Concern for aspiration couple days ago. Per son he open eyes a few times but does seem more confused than his baseline. At baseline he is confused and agitated at times. Last Saturday one son went to visit him he had a little cough as well. Son also reports 3 episodes of loose bowel movement this afternoon. Patient was made hospice care at assisted for additional care but son would like everything done aside from aggressive measures and patient is DNR/DNI. History of distant smoking but quit in . In the emergency room he was given Zosyn and a liter of normal saline. Principal Diagnosis Aspiration Pneumonia Discharge Exam Constitutional: WD/WN, vitals as above in no acute distress ENMT: external ear and nose normal, oropharynx normal Neck: trachea midline, no thyromegaly normal visual inspection Respiratory: comfortable breating on 3 liters nasal cannula, no respiratory distress Auscultation: + rales and + rhonchi Cardiovascular: RRR, no murmur, no edema Gastrointestinal (Abdomen): Inspection/Auscultation: abdomen normal to inspection; abdomen not distended Musculoskeletal: no cyanosis or clubbing, extremities motor strength 5/5 Skin: no rashes, warm and dry Neurologic: moves all extremities and awake Psychiatric: Orientation: + not alert Eye Contact: + poor eye contact Discharge Data Allergies Allergy/AdvReac Type Severity Reaction Status Date / Time shellfish derived Allergy Intermediate GI Verified 10/03/18 18:27 DISTRESS, RASH Consultations 10/03/18 19:12 ED Decision to Admit Stat 10/07/18 08:07 Consult Palliative Care Routine Ordered Studies 10/03/18 17:01 CT head/brain wo con Stat 10/03/18 17:58 CT abd pelvis wo con Stat CT chest wo con Stat Hospital Course (1) Pneumonia: CT chest on 10/03 showed consolidation throughout the left lung with dense consolidation at the left lung base and a trace left pleural effusion - Likely aspiration. - Continue Zosyn - Follow cultures - Aspiration precautions - Continue IV fluids, pain and agitation control. - On 10/06, appears back to baseline. Patient quality of life at facilty appears poor. Consulted palliative care: will get POLST form completed prior to discharge. Will discharge to different hospice facility likely SNF Plan for discharge in AM on Saturday. (2) Aspiration into airway: (3) Altered mental status: Metabolic encephalopathy from pneumonia and dehydration. - Monitor mental status - Presently only localizes pain. GCS of 8. (4) Dementia: Very advanced. At baseline, per family, he does interact and is somewhat verbal (mostly says "Oh" or occasional few words). At baseline, can sit in chair and move utensils, but not really walking any more. - Monitor (5) Asthma: (6) Paroxysmal atrial fibrillation: EKG on admission showed normal sinus. On beta-ila & amiodarone for rate control. No anticoagulation. - Holding all oral meds at present. (7) History of cholecystectomy: (8) History of nephrectomy: (9) Hypertension: Total Time Total Time Spent Total Time Spent (In Minutes): 31 Total Time Includes: Examination of the Patient, Discharge Planning and Medication Reconciliation Discharge Plan Discharge Items Patient Disposition: Hospice - Medical Facility Reason For Visit: PNEUMONIA,CONSTIPATION Discharge Diagnosis: Pneumonia Discharge Goals: Decrease discomfort Activity: Resume your previous activity Activity Comment: Bedrest Non-emergency contact: Specialist Call non-emergency contact if: your pain is worsening Follow-up/Referrals: Emma, [Primary Care Provider] - Diet: See below Diet Comment: NPO Addtl Provider Instructions: Patient will be discharged on hospice. Patient is currently NPO. Prescriptions: New morphine 20 mg/5 mL (4 mg/mL) solution 5 mg PO Q3H PRN (Reason: pain) Qty: 100 RF: 0 Continued Abhr Gel 0.5 ML 0.5 ml topical DIRECTED PRN (Reason: Nausea) RF: 0 bisacodyl [Dulcolax (bisacodyl)] 10 mg Suppository 10 mg MS DAILY PRN (Reason: Constipation) RF: 0 atropine 1 % Drops 1 drp OPHTHALMIC (EYE) DIRECTED PRN (Reason: Secretions) RF: 0 Discontinued trazodone 50 mg tablet 25 mg PO HS RF: 0 cetirizine [Zyrtec] 10 mg Tablet 10 mg PO DAILY PRN (Reason: SEASONAL ALLERGIES) RF: 0 olanzapine 10 mg tablet 10 mg PO HS RF: 0 acetaminophen [Tylenol Extra Strength] 500 mg Tablet 1,000 mg PO Q8H PRN (Reason: Pain) RF: 0 metoprolol succinate 25 mg tablet extended release 24 hr 25 mg PO DAILY RF: 0 sertraline 50 mg tablet 50 mg PO DAILY RF: 0 Ensure Plus 0.05-1.5 gram-kcal/mL Liquid 1 can PO BID RF: 0 magnesium oxide 400 mg Capsule 400 mg PO DAILY RF: 0 amiodarone 200 mg tablet 200 mg PO QPM RF: 0 acetaminophen 650 mg Suppository 650 mg MS Q4H PRN (Reason: Pain) RF: 0 ipratropium-albuterol 0.5 mg-3 mg(2.5 mg base)/3 mL Solution For Nebulization 1 unit INHALATION Q4H PRN (Reason: Shortness Of Breath) RF: 0 lorazepam 2 mg/mL Solution 1 mg BUCCAL Q4H PRN (Reason: Anxiety) RF: 0 morphine 25 mg/mL Solution 0.5 ml Q2H PRN (Reason: Pain) RF: 0 Stand-Alone Forms: [facility], [facility] Discharge Orders: Discharge Order (Routine); Ordered 10/10/18 Ordered By: Arnav Barbosa Admission Data Admit Date/Time: 10/03/18 20:48 Attending Provider: Arnav Barbosa Admit Provider: Sudheer Garnett Primary Care Provider: Emma, Other Providers: Katya Johnson Service: Medical Other Interventions: Discharge Summary Assessment (RN) Last Done: 10/10/18 11:16 DC Date/Time DO NOT enter until pt leaves facility: 10/10/18 17:03
== END 2018-10-10 17:03 | disposition hospice, inpatient (51) | DRG 177 ==
LOC: ED 16:46 → 2S 20:48 → SUATTDRO 20:48 → 2S 21:26 → 4E 10-04 14:42
DX: E87.0 Hyperosmolality and hypernatremia; E86.0 Dehydration; I48.0 Paroxysmal atrial fibrillation; F03.90 Unspecified dementia, unspecified severity, without behavioral disturbance, psychotic disturbance, mood disturbance, and anxiety; Z79.899 Other long term (current) drug therapy; Z51.5 Encounter for palliative care; J45.909 Unspecified asthma, uncomplicated; K52.9 Noninfective gastroenteritis and colitis, unspecified; J69.0 Pneumonitis due to inhalation of food and vomit; E87.8 Other disorders of electrolyte and fluid balance, not elsewhere classified; Z66 Do not resuscitate; K59.00 Constipation, unspecified; I10 Essential (primary) hypertension; G93.41 Metabolic encephalopathy